=== PATIENT | female | born 2000 | race Caucasian/White ===

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

== ENCOUNTER 2021-01-09 15:23 | Outpatient (REF) | payer MEDICAID, SELFPAY | END 2021-01-09 15:24 | disposition home or self-care (01) | LOC: HO.LAB 15:23 | PROVIDERS: Visit Provider Internal Medicine | DX: Z20.822 Contact with and (suspected) exposure to COVID-19 (principal) | CPT/HCPCS: C9803; U0003; U0005 ==

== ENCOUNTER 2021-03-21 22:31 | Emergency (ER) | payer MEDICAID, SELFPAY ==
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
[2021-03-21 22:39] VITALS: BP 114/67; PULSE 100; RESP 18; TEMP 36.9; O2SAT 99; BMI 30.9
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
[2021-03-22] MEDS: Diphth,Pertus(ACell),Tet Adult 0.5 ML SYRINGE IM (01:37)
[2021-03-22] MEDS: Ibuprofen 600 MG TABLET PO (01:37)
== END 2021-03-22 02:30 | disposition home or self-care (01) ==
PROVIDERS: Emergency Provider Student in an Organized Health Care Education/Training Program
DX: S91.111A Laceration without foreign body of right great toe without damage to nail, initial encounter (principal); V28.0XXA Motorcycle driver injured in noncollision transport accident in nontraffic accident, initial encounter; Y93.9 Activity, unspecified; Y92.9 Unspecified place or not applicable; Y99.9 Unspecified external cause status
CPT/HCPCS: 12001; 73630; 90471; 90715; 99283; 99284

== ENCOUNTER 2021-03-25 16:33 | Emergency (ER) | payer MEDICAID, SELFPAY ==
[2021-03-25 16:49] VITALS: BP 110/55; PULSE 85; RESP 18; TEMP 36.8; O2SAT 100; BMI 30.9
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
--- NOTE | 2021-03-25 18:46 | PC.NURSE ---
POST OP SHOE APPLIED TO L FOOT.
== END 2021-03-25 18:54 | disposition home or self-care (01) ==
PROVIDERS: Emergency Provider Emergency Medicine
DX: S91.102D Unspecified open wound of left great toe without damage to nail, subsequent encounter (principal); W05.1XXD Fall from non-moving nonmotorized scooter, subsequent encounter
CPT/HCPCS: 99282; 99283

== ENCOUNTER 2021-04-28 14:32 | Emergency (ER) | payer MEDICAID, SELFPAY ==
--- NOTE | ~2021-04-28 | XR_ITS ---
EXAMINATION: CERVICAL AND THORACIC SPINE X-RAYS CLINICAL INFORMATION: Pain post fall COMPARISON: None TECHNIQUE: 3 views of the cervical spine and 3 views of the thoracic spine FINDINGS: Thoracic spine: Bone alignment is normal. No fracture or dislocation is seen. Disc spaces are normal. Paraspinal soft tissues are normal. Cervical spine: Bone alignment is normal. No fracture or dislocation is seen. Disc spaces are normal. Prevertebral soft tissues are normal. XR/XR cervical spine 2V IMPRESSION: Unremarkable exam.
--- NOTE | ~2021-04-28 | XR_ITS ---
EXAMINATION: CERVICAL AND THORACIC SPINE X-RAYS CLINICAL INFORMATION: Pain post fall COMPARISON: None TECHNIQUE: 3 views of the cervical spine and 3 views of the thoracic spine FINDINGS: Thoracic spine: Bone alignment is normal. No fracture or dislocation is seen. Disc spaces are normal. Paraspinal soft tissues are normal. Cervical spine: Bone alignment is normal. No fracture or dislocation is seen. Disc spaces are normal. Prevertebral soft tissues are normal. XR/XR thoracic spine 2V IMPRESSION: Unremarkable exam.
[2021-04-28 15:07] VITALS: BP 109/76; PULSE 81; RESP 18; TEMP 36.5; O2SAT 100; BMI 30.9
--- NOTE | 2021-04-28 15:45 | ED.FALL ---
HPI - Fall General Chief Complaint: Fall Stated Complaint: neck and back pain Time Seen by Provider: 04/28/21 15:32 Source: patient Mode of arrival: ambulatory Limitations: no limitations History of Present Illness HPI Narrative: 21-year-old female here with complaints of upper back pain after a fall on April 19. Patient tells me that she fell backwards off onto a bed. She denies hitting her head or loss of consciousness. Since then she has had persistent pain in the upper back despite Motrin and Tylenol. No radiation of pain. No numbness or tingling. Related Data Previous Rx's Medication Instructions Recorded cefuroxime axetil 500 mg PO BID 7 Days #14 tab 09/23/20 ondansetron 4 mg PO Q6-8H PRN #7 tab 09/23/20 cyclobenzaprine 10 mg PO TID PRN #10 tab 04/28/21 Allergies Allergy/AdvReac Type Severity Reaction Status Date / Time grapefruit [GRAPEFRUIT] Allergy Unknown ITCHY MOUTH Verified 03/25/21 18:37 orange [ORANGE] Allergy Unknown ITCHY MOUTH Verified 03/25/21 18:37 nitrofurantoin Allergy Vomiting Verified 03/25/21 18:37 [From Macrobid] Review of Systems Review of Systems: Yes all other systems are reviewed and are negative Constitutional: Constitutional: Reports no additional constitutional complaints, Denies body ache(s), Denies chills, Denies fever(s), Denies headache(s) and Denies weakness Eyes: Eyes: Reports no additional eye complaints and Denies change in vision ENT: Reports system reviewed and no additional complaints, except as documented, Denies dizziness, Denies headache(s), Denies nasal congestion, Denies nasal discharge and Reports neck pain Cardiovascular: Cardiovascular: Reports no additional cardiovascular complaints, Denies chest pain, Denies leg edema and Denies dyspnea Respiratory: Respiratory: Reports no additional respiratory complaints, Denies cough and Denies dyspnea Gastrointestinal: Gastrointestinal: Reports no additional gastrointestinal complaints, Denies abdominal pain, Denies diarrhea, Denies nausea and Denies vomiting Genitourinary: Genitourinary: Reports no additional female genitourinary complaints and Denies urinary incontinence Musculoskeletal: Musculoskeletal: Reports no additional musculoskeletal complaints, Reports back pain, Denies arthralgias, Denies joint swelling, Reports neck pain, Denies numbness and Denies tingling Integumentary/Breasts: Skin/Breast: Reports system reviewed and no additional complaints, except as docu and Denies rash Neurologic: Reports system reviewed and no additional complaints, except as documented, Denies Abnormal speech present, Denies dizziness, Denies headache(s), Denies numbness, Denies tingling and Denies weakness PMFSH Past Medical History Attestation statement: The following information was validated with the patient. Source: old records reviewed Medical History No known health problems Social History Social History Alcohol intake: never Advance Directives: No Advance Directives Information Provided: No Patient : No Physical Exam Vital Signs: Vital Signs: Last Vital Signs Temp 97.7 F 04/28/21 15:07 Pulse 81 04/28/21 15:07 Resp 18 04/28/21 15:07 BP 109/76 04/28/21 15:07 Pulse Ox 100 04/28/21 15:07 Body Mass Index 30.9 Const: General: cooperative, healthy appearing, comfortable and no acute distress Orientation/consciousness: patient oriented x3 Limitations: no limitations HENMT: Head: Yes normal to inspection Ears: hearing grossly normal bilaterally General nose exam: Normal external nose present Face and sinus: Yes normal facial exam Mouth: Normal oral and palatal mucosa present Throat: Yes posterior oropharynx normal Eyes: General: appearance normal, both eyes and all related structures Pupils: Equal, round and reactive pupils present Neck: Other: Lower cervical tenderness and upper thoracic tenderness with no midline tenderness, step-offs deformities FROM Neck: Yes normal visual inspection Chest: Chest palpation & inspection: normal inspection of the chest Resp: Effort & Inspection: normal respiratory effort Auscultation: clear to auscultation bilaterally Cardio: Rate: regular rate Rhythm: regular rhythm Peripheral pulses: Peripheral pulses 2+ throughout GI: Inspection: Yes normal to inspection Palpation (GI): Soft to palpation and nontender Auscultation: normal bowel sounds Back/Spine/Pelvis: Thoracic/Lumbar Spine: thoracic and lumbar spine normal to inspection Skin: General skin exam: no rashes or lesions noted Neuro: General: patient oriented x3, no focal motor deficits and normal sensation to monofilament Cranial nerves: Yes Equal, round and reactive pupils present Cognition (Neuro): normal cognition Speech: No Abnormal speech present Gait exam (Neuro): Normal gait present Motor exam (neuro): 5/5 motor strength present throughout Extrem: General: Yes normal to inspection Course Course Course Narrative: Fall with persistent pain. Will check ur , x-rays 5-x-ray show no acute finding. Likely contusion. Recommend follow-up with primary care due to persistent symptoms of pain. Reviewed worrisome signs symptoms when to return to the emergency department are comfortable discharge home. MDM - Fall Medical Records Attestation: I reviewed the patient's medical records. Lab Data Attestation: I reviewed the patient's lab results. Labs: Lab Results 04/28/21 Range/Units 15:47 Urine Test NEGATIVE (NEGATIVE) Imaging Data thoracic ray: Attestation: I personally reviewed and interpreted this imaging study as follows: Radiologist's impression: EXAMINATION: CERVICAL AND THORACIC SPINE X-RAYS CLINICAL INFORMATION: Pain post fall COMPARISON: None TECHNIQUE: 3 views of the cervical spine and 3 views of the thoracic spine FINDINGS: Thoracic spine: Bone alignment is normal. No fracture or dislocation is seen. Disc spaces are normal. Paraspinal soft tissues are normal. Cervical spine: Bone alignment is normal. No fracture or dislocation is seen. Disc spaces are normal. Prevertebral soft tissues are normal. XR/XR cervical spine 2V IMPRESSION: Unremarkable exam. Discharge Plan Discharge Clinical Impression: Back contusion, Contusion of neck Patient Disposition: Home, Self-Care Instructions: Contusion in Adults (ED) Additional Instructions: Heat to the area Gentle stretching Motrin or Tylenol for pain additionally Prescriptions: New cyclobenzaprine 10 mg tablet 10 mg PO TID PRN (Reason: muscle spasm) Qty: 10 RF: 0 No Action cefuroxime axetil 500 mg tablet 500 mg PO BID 7 Days Qty: 14 RF: 0 ondansetron 4 mg tablet,disintegrating 4 mg PO Q6-8H PRN (Reason: nausea and vomiting) Qty: 7 RF: 0 Referrals: [facility] [Primary Care Provider] - 2 days
[2021-04-28 16:00] LABS: UPreg QC Valid YES; Urine Pregnancy NEGATIVE (NEGATIVE)
== END 2021-04-28 17:44 | disposition home or self-care (01) ==
PROVIDERS: Nurse Practitioner Family; Emergency Provider Emergency Medicine
DX: S10.93XA Contusion of unspecified part of neck, initial encounter (principal); S20.229A Contusion of unspecified back wall of thorax, initial encounter; W06.XXXA Fall from bed, initial encounter; Y93.89 Activity, other specified; Y92.013 Bedroom of single-family (private) house as the place of occurrence of the external cause; Y99.9 Unspecified external cause status
CPT/HCPCS: 72040; 72070; 81025; 99282; 99283

== ENCOUNTER 2021-06-20 15:08 | Outpatient (REF) | payer MEDICAID, SELFPAY | END 2021-06-20 15:09 | disposition home or self-care (01) | LOC: HO.LAB 15:08 | PROVIDERS: Visit Provider Internal Medicine | DX: Z20.822 Contact with and (suspected) exposure to COVID-19 (principal) | CPT/HCPCS: C9803; U0003; U0005 ==

== ENCOUNTER 2021-08-31 16:33 | Emergency (ER) | payer MEDICAID, SELFPAY ==
--- NOTE | ~2021-08-31 | CT_ITS ---
EXAMINATION: CT ABDOMEN AND PELVIS WITHOUT CONTRAST CLINICAL INFORMATION: Left flank pain. COMPARISON: CT abdomen and pelvis dated from 12/23/2015. TECHNIQUE: Multidetector volumetric imaging was performed from the superior aspect of the liver through the pubic symphysis. Sagittal and coronal reformatted images were obtained on the technologist's workstation. This CT examination was performed using dose optimization techniques as appropriate, variously including the following: *Automated exposure control *Adjustment of mA and/or kV according to patient size (this includes techniques or standardized protocols for targeted exams where dose is matched to indication/reason for exam; i.e. extremities or head) *Use of iterative reconstruction technique DLP: 642 mGy-cm FINDINGS: LUNG BASES: The visualized lung bases are unremarkable. LIVER, GALLBLADDER, AND BILIARY TREE: The noncontrast liver is normal in size, shape, and attenuation. No focal hepatic lesion or biliary ductal dilatation is present. The gallbladder is unremarkable with no evidence of radiopaque gallstones, gallbladder wall thickening, or obvious pericholecystic inflammatory changes. PANCREAS: Unremarkable. SPLEEN: Unremarkable. ADRENAL GLANDS: Unremarkable. KIDNEYS AND URETERS: The kidneys are normal in size, shape, and attenuation. No hydronephrosis, hydroureter, or calculi seen. No perinephric stranding. BLADDER: Unremarkable. GASTROINTESTINAL TRACT: The small and large bowel are unremarkable. The appendix is unremarkable. ABDOMINAL WALL: No significant hernia is appreciated. LYMPH NODES: Evaluation is somewhat limited due to the absence of intravenous contrast and decreased intra-abdominal fat. Accounting for these limitations, there is redemonstration of prominent mesenteric lymph nodes of uncertain clinical significance and overall stable since 2016. VASCULAR: Unremarkable. PELVIC VISCERA: There is a vaginal tampon. There is a normal CT appearance of the uterus and adnexa. OSSEOUS STRUCTURES: No acute or suspicious osseous abnormalities. CT/CT abdomen pelvis wo IV con IMPRESSION: No acute abnormalities to explain the patient's symptoms.
[2021-08-31 19:29] VITALS: BP 118/75; PULSE 87; RESP 18; TEMP 36.9; O2SAT 97; BMI 32.5
[2021-08-31 19:55] LABS: Appearance Urine CLEAR; Color Urine YELLOW; Glucose Urine UA NEG (NEG); Leukocyte Esterase Urine NEG (NEG); Nitrite Urine NEG (NEG); UACC Culture Trigger NO; Urine Blood 2+ (NEG); Urine Ketones NEG (NEG); Urine Protein NEG (NEG-TRACE)
[2021-08-31 19:59] LABS: UPreg QC Valid YES; Urine Pregnancy NEGATIVE (NEGATIVE)
[2021-08-31 20:11] LABS: Bacteria Urine TRACE /LPF; Squamous Epithelial Cell Urine 2+ /LPF
[2021-08-31 20:13] LABS: Uric Acid Crystals Urine TRACE /LPF
[2021-08-31] MEDS: Ibuprofen 400 MG TABLET PO (21:47)
[2021-08-31] MEDS: Acetaminophen 325 MG TABLET 975 MG PO (21:48)
[2021-08-31 21:49] VITALS: BP 127/71; PULSE 90; RESP 16; O2SAT 97
--- NOTE | 2021-08-31 21:54 | ED.GENADULT ---
HPI - General Adult General Chief complaint: General Medical Stated complaint: back pain Time Seen by Provider: 08/31/21 21:19 Source: patient Mode of arrival: ambulatory History of Present Illness HPI narrative: 21-year-old female without significant past medical history other than renal colic presents with left flank pain primarily since Wednesday without associated fever, chills, vomiting, but states an episode of diarrhea this morning and mild nausea with decreased appetite for the past 3 days. Patient states that the pain as sharp and has progressively worsened over the past couple of days and now radiates into the anterior abdomen. Otherwise, she denies any urinary pain/burning/frequency. Related Data Previous Rx's Medication Instructions Recorded cefuroxime axetil 500 mg tablet 500 mg PO BID 7 Days #14 tab 09/23/20 ondansetron 4 mg disintegrating 4 mg PO Q6-8H PRN #7 tab 09/23/20 tablet cyclobenzaprine 10 mg tablet 10 mg PO TID PRN #10 tab 04/28/21 Allergies Allergy/AdvReac Type Severity Reaction Status Date / Time grapefruit [GRAPEFRUIT] Allergy Unknown ITCHY MOUTH Verified 08/31/21 19:29 orange [ORANGE] Allergy Unknown ITCHY MOUTH Verified 08/31/21 19:29 nitrofurantoin Allergy Vomiting Verified 08/31/21 19:29 [From Macrobid] Review of Systems Review of Systems: Pertinent positives and negatives as stated in HPI 10 point review of systems is otherwise negative. PMFSH Past Medical History Source: nursing notes reviewed Medical History No known health problems Social History Social History Alcohol intake: never Advance Directives: No Advance Directives Information Provided: No Patient : No Physical Exam Vital Signs: Vital Signs: Last Vital Signs Temp 98.5 F 08/31/21 19:29 Pulse 90 08/31/21 21:49 Resp 16 08/31/21 21:49 BP 127/71 08/31/21 21:49 Pulse Ox 97 08/31/21 21:49 Body Mass Index 32.5 VITAL SIGNS: Reviewed. GENERAL: Well developed, well nourished, in no acute distress. HEAD: Normocephalic/atraumatic EYES: PERRLA, EOMI OROPHARYNX: no oral lesions noted, posterior pharynx clear LUNGS: Normal breath sounds. No adventitious sounds or accessory muscle use. SpO2<97> CARDIOVASCULAR: Regular rate and rhythm without noted murmurs ABDOMEN: Soft, mild tenderness over suprapubic without rebound, non-distended with bowel sounds, left-sided CVA tenderness. NEUROLOGIC: Alert and oriented x 4. Course Course Course Narrative: 21-year-old female with history and clinical presentation suggestive of possible renal colic, pyelonephritis although the latter is less likely given negative UA and patient is currently on her menstrual cycle. Review of all investigations negative for acute findings to suggest pyelonephritis, UTI, renal colic. Urine is negative therefore ruling out ectopic. Results and findings were discussed with the patient at bedside and after receiving combination analgesics patient states that her pain has improved and she was encouraged to follow-up with her primary care provider. Medical Decision Making Lab Data Labs: Lab Results 08/31/21 08/31/21 Range/Units 19:43 19:43 Urine Color YELLOW Urine Appearance CLEAR Urine pH 7.0 (5.0-8.0) Ur Specific [place] 1.010 (1.005-1.025) Urine Protein NEG (NEG-TRACE) MG/DL Urine Glucose (UA) NEG (NEG) MG/DL Urine Ketones NEG (NEG) MG/DL Urine Blood 2+ H (NEG) Urine Nitrite NEG (NEG) Ur Leukocyte Esterase NEG (NEG) Urine RBC 1-4 (0) /HPF Urine WBC 1-4 (0-4) /HPF Ur Squamous Epith Cells 2+ /LPF Uric Acid Crystals TRACE /LPF Urine Bacteria TRACE /LPF Urine Test NEGATIVE (NEGATIVE) Discharge Plan Discharge Clinical Impression: Flank pain, Musculoskeletal pain Patient Disposition: Home, Self-Care Instructions: Flank Pain (ED), Musculoskeletal Pain (ED) Additional Instructions: 1. Tylenol 1000 mg, orally, every 6 hours as needed for pain control. Do not exceed 4000 mg within 24 hours. 2. Ibuprofen 400 mg, orally with milk or food, every 6 hours as needed for pain control. You may take this medication with the Tylenol for improved symptom relief. 3. Lidocaine patch, these are available [id number] and can be apply to area of maximal tenderness as directed on the outside packaging. 4. Follow-up with your primary care provider tomorrow morning for re-evaluation and further outpatient management Return to the ER for acute worsening of symptoms. Prescriptions: No Action cyclobenzaprine 10 mg tablet 10 mg PO TID PRN (Reason: muscle spasm) Qty: 10 RF: 0 cefuroxime axetil 500 mg tablet 500 mg PO BID 7 Days Qty: 14 RF: 0 ondansetron 4 mg tablet,disintegrating 4 mg PO Q6-8H PRN (Reason: nausea and vomiting) Qty: 7 RF: 0
== END 2021-08-31 23:19 | disposition home or self-care (01) ==
PROVIDERS: Emergency Provider Student in an Organized Health Care Education/Training Program
DX: R10.9 Unspecified abdominal pain (principal); M79.18 Myalgia, other site
CPT/HCPCS: 74176; 81001; 81025; 99284

== ENCOUNTER 2022-02-27 13:32 | Emergency (ER) | payer MEDICAID, SELFPAY ==
--- NOTE | ~2022-02-27 | CT_ITS ---
EXAMINATION: CT ABDOMEN AND PELVIS WITHOUT CONTRAST CLINICAL INFORMATION: Right-sided abdominal and flank pain COMPARISON: 08/31/2021 TECHNIQUE: Multidetector volumetric imaging was performed from the superior aspect of the liver through the pubic symphysis. Sagittal and coronal reformatted images were obtained on the technologist's workstation. This CT examination was performed using dose optimization techniques as appropriate, variously including the following: *Automated exposure control *Adjustment of mA and/or kV according to patient size (this includes techniques or standardized protocols for targeted exams where dose is matched to indication/reason for exam; i.e. extremities or head) *Use of iterative reconstruction technique DLP: 680 mGy-cm FINDINGS: LUNG BASES: The visualized lung bases are unremarkable. LIVER, GALLBLADDER, AND BILIARY TREE: The liver is normal in size, shape, and attenuation. No focal hepatic lesion or biliary ductal dilatation is present. The gallbladder is unremarkable with no evidence of radiopaque gallstones, gallbladder wall thickening, or obvious pericholecystic inflammatory changes. PANCREAS: Unremarkable. SPLEEN: Unremarkable. ADRENAL GLANDS: Unremarkable. KIDNEYS AND URETERS: The kidneys are normal in size, shape, and attenuation. No hydronephrosis, hydroureter, or calculi seen. No perinephric stranding. BLADDER: Unremarkable. GASTROINTESTINAL TRACT: No evidence of bowel obstruction or significant wall thickening. The appendix appears nondilated without significant surrounding inflammatory change. No free fluid or free air is seen. ABDOMINAL WALL: No significant hernia is appreciated. LYMPH NODES: Scattered mesenteric and retroperitoneal subcentimeter lymph nodes are present, without significant enlargement by size criteria. VASCULAR: Unremarkable. PELVIC VISCERA: Unremarkable. OSSEOUS STRUCTURES: Unremarkable. CT/CT abdomen pelvis wo IV con IMPRESSION: No acute findings identified in the abdomen/pelvis.
[2022-02-27 14:54] VITALS: BP 114/71; PULSE 73; RESP 16; TEMP 35.6; O2SAT 100; BMI 34.0
[2022-02-27 22:14] LABS: MANUAL DIFF FLAG NO
[2022-02-27 22:15] LABS: Basophils Absolute Auto 0.1 X10*3/uL (0.0-0.2); Basophils Percent Auto 0.5 % (0-2); Eosinophils Absolute Auto 0.2 X10*3/uL (0.0-0.4); Eosinophils Percent Auto 1.5 % (0-4); Hematocrit 36.9 % (37.0-47.0); Hemoglobin 12.4 g/dl (12.0-16.0); Imm Gran Abs Auto 0.04 X10*3/uL (0.00-0.03); Imm Gran Pct Auto 0.4 % (0.0-0.4); Lymphocytes Absolute Auto 3.1 X10*3/uL (1.2-4.9); Lymphocytes Percent Auto 26.9 % (20-40); Mean Corpuscular HGB Conc 33.6 g/dl (31.0-35.0); Mean Corpuscular Hemoglobin 27.2 pg (27.0-33.0); Mean Corpuscular Volume 80.9 fL (80.0-98.0); Mean Platelet Volume 9.3 fL (9.4-12.3); Monocytes Absolute Auto 0.4 X10*3/uL (0.1-1.2); Monocytes Percent Auto 3.8 % (2-11); Neutrophils Absolute Auto 7.6 x10*3/uL (2.0-8.3); Neutrophils Percent Auto 66.9 % (45-73); Platelet Count 319 X10*3/uL (160-400); Red Blood Count 4.56 X10*6/uL (4.20-5.50); Red Cell Distribution Width 12.7 % (11.0-16.0); White Blood Count 11.4 X10*3/uL (4.8-10.8)
[2022-02-27 22:29] LABS: Appearance Urine CLEAR; Color Urine YELLOW; Glucose Urine UA NEG (NEG); Leukocyte Esterase Urine NEG (NEG); Nitrite Urine NEG (NEG); Specific Gravity - Urine 1.015 (1.005-1.025); Urine Blood NEG (NEG); Urine Ketones NEG (NEG); Urine Protein NEG (NEG-TRACE)
[2022-02-27 22:31] LABS: Alanine Aminotransferase 13 U/L (0-31); Albumin Level 4.4 g/dL (3.5-5.0); Alkaline Phosphatase 72 U/L (39-117); Aspartate Amino Transferase 13 U/L (5-31); Bilirubin Direct 0.2 mg/dL (0.0-0.5); Bilirubin Total 0.5 mg/dL (0.0-1.0); Lipase 45 U/L (8-78); Total Protein 7.6 g/dL (6.5-8.0)
[2022-02-27 22:33] LABS: Alanine Aminotransferase 13 U/L (0-31); Albumin Level 4.4 g/dL (3.5-5.0); Alkaline Phosphatase 73 U/L (39-117); Anion Gap 13 (12-20); Aspartate Amino Transferase 14 U/L (5-31); Bilirubin Total 0.5 mg/dL (0.0-1.0); Blood Urea Nitrogen 7 mg/dL (9-16); Calcium 9.8 mg/dL (8.4-10.2); Carbon Dioxide 28 mmol/L (22-29); Chloride 102 mmol/L (96-108); Creatinine Clr Calc Pharmacy 127.8; Estimated Glomerular Filt Rate > 60; Glucose Random 94 mg/dL (60-115); Sodium 139 mmol/L (135-145); Total Protein 7.7 g/dL (6.5-8.0)
--- NOTE | 2022-02-28 01:12 | ED.ABDPAIN ---
HPI - Abdominal Pain General Chief Complaint: Abdominal Pain Stated Complaint: upper R side abd pain Time Seen by Provider: 02/28/22 00:52 Source: patient and family (Mother, Jayne) Mode of arrival: ambulatory Limitations: no limitations History of Present Illness HPI narrative: 21-year-old female who presents emergency department for evaluation of right-sided abdominal pain. She states that the pain began 3 days prior. She states that 3 days prior she slept until noon and when she woke up she was experiencing pain in her right upper abdominal area. She states that since that time the pain is been constant but waxes and wanes in intensity. She states that there is a constant pressure-like pain which is 6/10 and then she has brief episodes of sharp pain which is 10/10. She states the pain seems to be worse with breathing and with movement. The pain does not change with eating. She states who her LMP was 02/17/2022 and she blood until 02/24/2022. She denied fever. She did have occasional chills. She denied rhinorrhea, sore throat, cough. She denied dyspnea on exertion. She has had nausea with no vomiting. She states she was constipated and had no bowel movement for 4 days but did have a bowel movement today. She did note frequency but no dysuria. MD elicited complaint: abdominal pain Pertinent past history: constipation and past UTI Onset (ago): day(s) (3) Pain Consistency: constant Location: RUQ and RLQ Severity: moderate Pain scale (0-10): 6 Quality: stabbing and other (Pressure-like pain) Radiation: none Migration to: no migration Exacerbating factors: movement and other (Breathing) Relieving factors: nothing Associated symptoms: nausea and dysuria Related Data Date of Last Menstrual Period: 02/17/22 Patient : No Previous Rx's Medication Instructions Recorded cefuroxime axetil 500 mg tablet 500 mg PO BID 7 Days #14 tab 09/23/20 ondansetron 4 mg disintegrating 4 mg PO Q6-8H PRN #7 tab 09/23/20 tablet cyclobenzaprine 10 mg tablet 10 mg PO TID PRN #10 tab 04/28/21 Allergies Allergy/AdvReac Type Severity Reaction Status Date / Time grapefruit [GRAPEFRUIT] Allergy Unknown ITCHY MOUTH Verified 08/31/21 19:29 orange [ORANGE] Allergy Unknown ITCHY MOUTH Verified 08/31/21 19:29 nitrofurantoin Allergy Vomiting Verified 08/31/21 19:29 [From Macrobid] Review of Systems Review of Systems Yes all other systems are reviewed and are negative [facility] Past Medical History [facility] Narrative: Past medical history: Depression, anxiety, sickle cell trait. Past surgical history tonsillectomy. Social history: She denies tobacco use, she occasionally drinks alcohol, she denies drug use. Medical History No known health problems Date of Last Menstrual Period: 02/17/22 Social History Social History Alcohol intake: never Advance Directives: No Advance Directives Information Provided: No Patient : No Physical Exam ED Vital Signs: Vital Signs - 24 hr 02/27/22 14:54 02/28/22 01:23 Temperature 96.0 F L 98.2 F Pulse Rate 73 84 Respiratory Rate 16 16 Blood Pressure 114/71 116/78 Pulse Oximetry 100 99 BMI result Body Mass Index 34.0 Const General: cooperative and no acute distress Orientation/consciousness: oriented to person and oriented to place Limitations: no limitations HENMT Head: Yes normal to inspection, Yes normocephalic and Yes atraumatic Ears: external ears normal General nose exam: Normal external nose present Face and sinus: Yes normal facial exam Mouth: Normal oral and palatal mucosa present Throat: Yes posterior oropharynx normal Eyes General: appearance normal, both eyes and all related structures Pupils: Equal, round and reactive pupils present Neck Neck: Yes normal visual inspection, Yes no lymphadenopathy, Yes trachea midline and Yes supple Chest Chest palpation & inspection: normal inspection of the chest and normal palpation of entire chest wall Resp Effort & Inspection: normal respiratory effort and able to speak in complete sentences Auscultation: clear to auscultation bilaterally Cardio Rate: regular rate Rhythm: regular rhythm Heart sounds: S1 normal heart sound present, S2 normal heart sound present and no murmurs GI Inspection: Yes normal to inspection Palpation (GI): Soft to palpation, Tenderness to palpation present (GI) (Mild, diffuse tenderness) in the RLQ (Moderate) and in the RUQ (Moderate) and no guarding Auscultation: normal bowel sounds General: Yes CVA tenderness (Moderate) on the right Back/Spine/Pelvis Back: CVA tenderness (Moderate) Skin General skin exam: no rashes or lesions noted Neuro General: oriented to person and oriented to place Cranial nerves: Yes CN's II-XII intact bilaterally and Yes Equal, round and reactive pupils present Cognition (Neuro): normal cognition Motor exam (neuro): 5/5 motor strength present throughout Extrem General: Yes normal to inspection Psych Appearance: grossly normal Speech and movement: Normal speech and movement present Affect: normal affect Attitude: cooperative Thought process: Normal thought process present Thought content: Normal thought content present Course Course Course Narrative: 21-year-old female who presents emergency department for evaluation right-sided abdominal pain x3 days. The pain is a constant pressure-like pain with intermittent sharp pain. Pain is worse with movement and breathing but is not changed by eating. Patient had no bowel movement for 4 days, she had a bowel movement today but this did not relieve her pain. Vital signs were unremarkable. Patient's vital signs were normal except for a low temperature of 96 degrees F . The patient's abdominal exam did reveal moderate right upper and right lower quadrant tenderness with moderate CVA tenderness and diffuse mild tenderness. Differential includes was not limited to ectopic , appendicitis, biliary disease, renal stone, pyelonephritis, UTI. Laboratory evaluation was ordered. Patient was ordered to get Toradol 15 mg IV and Zofran 4 mg IV. 0122: Laboratory evaluation: CBC was normal, CMP was normal. Lipase was normal. Quantitative beta-hCG is pending. 0251: The patient's quantitative beta hCG was negative. Patient is feeling better from the above treatment. CT scan of the abdomen pelvis without IV contrast is pending. At the end of my shift, patient's care was turned over to my colleague, Dr. Belkis manzanares. MDM - Abdominal Pain Lab Data Result diagrams: 02/27/22 22:07 02/27/22 22:07 Labs: Lab Results 02/27/22 02/27/22 02/27/22 Range/Units 22:07 22:07 22:07 WBC 11.4 H (4.8-10.8) X10*3/uL RBC 4.56 (4.20-5.50) X10*6/uL Hgb 12.4 (12.0-16.0) g/dl Hct 36.9 L (37.0-47.0) % MCV 80.9 (80.0-98.0) fL MCH 27.2 (27.0-33.0) pg MCHC 33.6 (31.0-35.0) g/dl RDW 12.7 (11.0-16.0) % Plt Count 319 (160-400) X10*3/uL MPV 9.3 L (9.4-12.3) fL Immature Gran % (Auto) 0.4 (0.0-0.4) % Neut % (Auto) 66.9 (45-73) % Lymph % (Auto) 26.9 (20-40) % [place] % (Auto) 3.8 (2-11) % Eos % (Auto) 1.5 (0-4) % Baso % (Auto) 0.5 (0-2) % Lymph # (Auto) 3.1 (1.2-4.9) X10*3/uL [place] # (Auto) 0.4 (0.1-1.2) X10*3/uL Eos # (Auto) 0.2 (0.0-0.4) X10*3/uL Baso # (Auto) 0.1 (0.0-0.2) X10*3/uL Abs Immat Gran (auto) 0.04 H (0.00-0.03) X10*3/uL Absolute Neuts (auto) 7.6 (2.0-8.3) x10*3/uL Absolute Nucleated RBC 0.000 (0.0-0.012) X10*3/uL Nucleated RBC % (auto) 0.0 (0.0-0.2) /100WBC Sodium 139 (135-145) mmol/L Potassium 4.0 (3.3-5.1) mmol/L Chloride 102 (96-108) mmol/L Carbon Dioxide 28 (22-29) mmol/L Anion Gap 13 (12-20) BUN 7 L (9-16) mg/dL Creatinine 0.68 (0.5-1.4) mg/dL Estim Creat Clear Calc 127.8 Estimated GFR > 60 Random Glucose 94 (60-115) mg/dL Calcium 9.8 (8.4-10.2) mg/dL Total Bilirubin 0.5 0.5 (0.0-1.0) mg/dL Direct Bilirubin 0.2 (0.0-0.5) mg/dL AST 14 13 (5-31) U/L ALT 13 13 (0-31) U/L Alkaline Phosphatase 73 72 (39-117) U/L Total Protein 7.7 7.6 (6.5-8.0) g/dL Albumin 4.4 4.4 (3.5-5.0) g/dL Lipase 45 (8-78) U/L Beta HCG, Quant < 2 mIU/mL Urine Color Urine Appearance Urine pH (5.0-8.0) Ur Specific [place] (1.005-1.025) Urine Protein (NEG-TRACE) MG/DL Urine Glucose (UA) (NEG) MG/DL Urine Ketones (NEG) MG/DL Urine Blood (NEG) Urine Nitrite (NEG) Ur Leukocyte Esterase (NEG) 02/27/22 Range/Units 22:20 WBC (4.8-10.8) X10*3/uL RBC (4.20-5.50) X10*6/uL Hgb (12.0-16.0) g/dl Hct (37.0-47.0) % MCV (80.0-98.0) fL MCH (27.0-33.0) pg MCHC (31.0-35.0) g/dl RDW (11.0-16.0) % Plt Count (160-400) X10*3/uL MPV (9.4-12.3) fL Immature Gran % (Auto) (0.0-0.4) % Neut % (Auto) (45-73) % Lymph % (Auto) (20-40) % [place] % (Auto) (2-11) % Eos % (Auto) (0-4) % Baso % (Auto) (0-2) % Lymph # (Auto) (1.2-4.9) X10*3/uL [place] # (Auto) (0.1-1.2) X10*3/uL Eos # (Auto) (0.0-0.4) X10*3/uL Baso # (Auto) (0.0-0.2) X10*3/uL Abs Immat Gran (auto) (0.00-0.03) X10*3/uL Absolute Neuts (auto) (2.0-8.3) x10*3/uL Absolute Nucleated RBC (0.0-0.012) X10*3/uL Nucleated RBC % (auto) (0.0-0.2) /100WBC Sodium (135-145) mmol/L Potassium (3.3-5.1) mmol/L Chloride (96-108) mmol/L Carbon Dioxide (22-29) mmol/L Anion Gap (12-20) BUN (9-16) mg/dL Creatinine (0.5-1.4) mg/dL Estim Creat Clear Calc Estimated GFR Random Glucose (60-115) mg/dL Calcium (8.4-10.2) mg/dL Total Bilirubin (0.0-1.0) mg/dL Direct Bilirubin (0.0-0.5) mg/dL AST (5-31) U/L ALT (0-31) U/L Alkaline Phosphatase (39-117) U/L Total Protein (6.5-8.0) g/dL Albumin (3.5-5.0) g/dL Lipase (8-78) U/L Beta HCG, Quant mIU/mL Urine Color YELLOW Urine Appearance CLEAR Urine pH 7.0 (5.0-8.0) Ur Specific [place] 1.015 (1.005-1.025) Urine Protein NEG (NEG-TRACE) MG/DL Urine Glucose (UA) NEG (NEG) MG/DL Urine Ketones NEG (NEG) MG/DL Urine Blood NEG (NEG) Urine Nitrite NEG (NEG) Ur Leukocyte Esterase NEG (NEG) Discharge Plan Discharge Clinical Impression: Abdominal pain Patient Disposition: Still a Patient Prescriptions: No Action cyclobenzaprine 10 mg tablet 10 mg PO TID PRN (Reason: muscle spasm) Qty: 10 0RF cefuroxime axetil 500 mg tablet 500 mg PO BID 7 Days Qty: 14 0RF ondansetron 4 mg tablet,disintegrating 4 mg PO Q6-8H PRN (Reason: nausea and vomiting) Qty: 7 0RF
[2022-02-28 01:23] VITALS: BP 116/78; PULSE 84; RESP 16; TEMP 36.8; O2SAT 99
[2022-02-28 01:23] LABS: HCG Quantitative < 2 mIU/mL
[2022-02-28] MEDS: ondansetron HCL 4 MG/2 ML VIAL IVPUSH (02:00)
[2022-02-28] MEDS: 0.9 % Sodium Chloride 1,000 ML 999 ML IV (02:00)
[2022-02-28] MEDS: Ketorolac Tromethamine 15 MG/ML VIAL IVPUSH (02:00)
== END 2022-02-28 03:53 | disposition home or self-care (01) ==
PROVIDERS: Emergency Provider Emergency Medicine Emergency Medical Services; PCP Nurse Practitioner
DX: K59.00 Constipation, unspecified (principal); R10.11 Right upper quadrant pain; R10.31 Right lower quadrant pain; Z79.899 Other long term (current) drug therapy
CPT/HCPCS: 36415; 74176; 80053; 80076; 81003; 82248; 83690; 84702; 85025; 96374; 96375; 99284; J1885; J2405

== ENCOUNTER 2022-05-17 19:09 | Emergency (ER) | payer MEDICAID, SELFPAY ==
[2022-05-17 20:25] VITALS: BP 139/67; PULSE 82; RESP 16; TEMP 36.9; O2SAT 99; BMI 25.4
[2022-05-17 20:35] LABS: MANUAL DIFF FLAG NO
[2022-05-17 20:36] LABS: Basophils Absolute Auto 0.1 X10*3/uL (0.0-0.2); Basophils Percent Auto 0.6 % (0-2); Eosinophils Absolute Auto 0.2 X10*3/uL (0.0-0.4); Hematocrit 35.6 % (37.0-47.0); Hemoglobin 11.8 g/dl (12.0-16.0); Imm Gran Abs Auto 0.03 X10*3/uL (0.00-0.03); Imm Gran Pct Auto 0.3 % (0.0-0.4); Lymphocytes Absolute Auto 2.7 X10*3/uL (1.2-4.9); Lymphocytes Percent Auto 25.3 % (20-40); Mean Corpuscular HGB Conc 33.1 g/dl (31.0-35.0); Mean Corpuscular Hemoglobin 26.6 pg (27.0-33.0); Mean Corpuscular Volume 80.4 fL (80.0-98.0); Mean Platelet Volume 9.2 fL (9.4-12.3); Monocytes Absolute Auto 0.5 X10*3/uL (0.1-1.2); Monocytes Percent Auto 4.3 % (2-11); Neutrophils Absolute Auto 7.1 x10*3/uL (2.0-8.3); Neutrophils Percent Auto 67.5 % (45-73); Platelet Count 280 X10*3/uL (160-400); Red Blood Count 4.43 X10*6/uL (4.20-5.50); Red Cell Distribution Width 12.3 % (11.0-16.0); White Blood Count 10.5 X10*3/uL (4.8-10.8)
[2022-05-17 20:38] LABS: Appearance Urine CLEAR; Color Urine YELLOW; Glucose Urine UA NEG (NEG); Leukocyte Esterase Urine NEG (NEG); Nitrite Urine NEG (NEG); PH 5.5 (5.0-8.0); Urine Blood NEG (NEG); Urine Ketones NEG (NEG); Urine Protein NEG (NEG-TRACE)
[2022-05-17 20:41] LABS: UPreg QC Valid YES; Urine Pregnancy NEGATIVE (NEGATIVE)
[2022-05-17 21:12] LABS: Alanine Aminotransferase 8 U/L (0-31); Albumin Level 4.4 g/dL (3.5-5.0); Alkaline Phosphatase 63 U/L (39-117); Anion Gap 14 (12-20); Aspartate Amino Transferase 12 U/L (5-31); Bilirubin Total 0.3 mg/dL (0.0-1.0); Blood Urea Nitrogen 9 mg/dL (9-16); Calcium 9.4 mg/dL (8.4-10.2); Carbon Dioxide 28 mmol/L (22-29); Chloride 103 mmol/L (96-108); Creatinine Clr Calc Pharmacy 106.7; Estimated Glomerular Filt Rate > 60; Glucose Random 98 mg/dL (60-115); Potassium 4.6 mmol/L (3.3-5.1); Sodium 140 mmol/L (135-145); Total Protein 7.3 g/dL (6.5-8.0)
--- NOTE | 2022-05-17 23:37 | ED_ITS ---
HPI - General Adult General Chief complaint: General Medical Stated complaint: uti, vaginal discomfort Time Seen by Provider: 05/17/22 21:47 Source: patient Mode of arrival: ambulatory Limitations: no limitations History of Present Illness HPI narrative: 22-year-old female presents to ED for dysuria, increased urinary frequency, and vaginal discomfort for the past 3 days. Patient states she is sexually active but has not had any unprotected sex recently. Patient states she just finished her menstruation this past . Patient denies any flank pain, nausea, vomiting, vaginal lesions, or vaginal bleeding. Related Data Previous Rx's Medication Instructions Recorded cefuroxime axetil 500 mg tablet 500 mg PO BID 7 days #14 tabs 09/23/20 ondansetron 4 mg disintegrating 4 mg PO Q6-8H PRN nausea and 09/23/20 tablet vomiting #7 tabs cyclobenzaprine 10 mg tablet 10 mg PO TID PRN muscle spasm #10 04/28/21 tabs doxycycline hyclate 100 mg capsule 100 mg PO BID 7 days #14 caps 05/18/22 metronidazole 500 mg tablet 500 mg PO BID 7 days #14 tabs 05/18/22 Allergies Allergy/AdvReac Type Severity Reaction Status Date / Time grapefruit [GRAPEFRUIT] Allergy Unknown ITCHY MOUTH Verified 08/31/21 19:29 orange [ORANGE] Allergy Unknown ITCHY MOUTH Verified 08/31/21 19:29 nitrofurantoin Allergy Vomiting Verified 08/31/21 19:29 [From Macrobid] Review of Systems Review of Systems: Dysuria Yes all other systems are reviewed and are negative PMFSH Past Medical History Medical History No known health problems Social History Social History Alcohol intake: never Advance Directives: No Advance Directives Information Provided: No Physical Exam ED Vital Signs: Vital Signs - 24 hr 05/17/22 20:25 Temperature 98.5 F Pulse Rate 82 Respiratory Rate 16 Blood Pressure 139/67 Pulse Oximetry 99 Oxygen Delivery Method Room Air BMI result Body Mass Index 25.4 Const General: cooperative, healthy appearing, comfortable, no acute distress, well developed, alert and awake Orientation/consciousness: patient oriented x3 HENMT Head: Yes normal to inspection, Yes No palpable skull fracture present, Yes normocephalic, Yes atraumatic and No abrasion Eyes General: appearance normal, both eyes and all related structures Neck Neck: Yes normal visual inspection, Yes full ROM, Yes no lymphadenopathy, Yes no meningeal signs, Yes trachea midline, Yes supple, No anterior neck swelling and No tender Chest Chest palpation & inspection: normal inspection of the chest and normal palpation of entire chest wall Resp Effort & Inspection: normal respiratory effort and able to speak in complete sentences Auscultation: clear to auscultation bilaterally Cardio Jugular venous distension: no JVD Heart sounds: S1 normal heart sound present and S2 normal heart sound present GI Inspection: Yes normal to inspection and No abdominal wall ecchymosis Palpation (GI): Soft to palpation, not firm, nontender, no guarding and not rigid Other: negative CMT General: No CVA tenderness and Yes no CVA tenderness External Female Exam: normal external appearance Speculum Exam - Vagina: normal appearance of the vagina and abnormal vaginal discharge white and frothy Speculum Exam - Cervix: Abnormal cervical discharge present white Back/Spine/Pelvis Back: no CVA tenderness, No CVA tenderness and No back tenderness Skin General skin exam: no rashes or lesions noted and elasticity normal Neuro General: patient oriented x3, gait normal, tone normal and no meningeal signs Cranial nerves: Yes CN's II-XII intact bilaterally Psych Appearance: grossly normal, well kempt and not disheveled Course Course Course Narrative: Labs UA negative. UA negative for UTI. Patient not Reevaluation(s) Reevaluation #1: Pelvic exam show white frothy discharge. Will treat empirically for STI also give 1 dose of Diflucan and discharged with BV and doxycycline. Time: 20:46 Medical Decision Making [facility] Narrative Medical decision making narrative: Dysuria. Vaginitis Lab Data Result diagrams: 05/17/22 20:25 05/17/22 20:25 Labs: Lab Results 05/17/22 05/17/22 05/17/22 Range/Units 20:25 20:25 20:25 WBC 10.5 (4.8-10.8) X10*3/uL RBC 4.43 (4.20-5.50) X10*6/uL Hgb 11.8 L (12.0-16.0) g/dl Hct 35.6 L (37.0-47.0) % MCV 80.4 (80.0-98.0) fL MCH 26.6 L (27.0-33.0) pg MCHC 33.1 (31.0-35.0) g/dl RDW 12.3 (11.0-16.0) % Plt Count 280 (160-400) X10*3/uL MPV 9.2 L (9.4-12.3) fL Immature Gran % (Auto) 0.3 (0.0-0.4) % Neut % (Auto) 67.5 (45-73) % Lymph % (Auto) 25.3 (20-40) % [place] % (Auto) 4.3 (2-11) % Eos % (Auto) 2.0 (0-4) % Baso % (Auto) 0.6 (0-2) % Lymph # (Auto) 2.7 (1.2-4.9) X10*3/uL [place] # (Auto) 0.5 (0.1-1.2) X10*3/uL Eos # (Auto) 0.2 (0.0-0.4) X10*3/uL Baso # (Auto) 0.1 (0.0-0.2) X10*3/uL Abs Immat Gran (auto) 0.03 (0.00-0.03) X10*3/uL Absolute Neuts (auto) 7.1 (2.0-8.3) x10*3/uL Absolute Nucleated RBC 0.000 (0.0-0.012) X10*3/uL Nucleated RBC % (auto) 0.0 (0.0-0.2) /100WBC Sodium (135-145) mmol/L Potassium (3.3-5.1) mmol/L Chloride (96-108) mmol/L Carbon Dioxide (22-29) mmol/L Anion Gap (12-20) BUN (9-16) mg/dL Creatinine (0.5-1.4) mg/dL Estim Creat Clear Calc Estimated GFR Random Glucose (60-115) mg/dL Calcium (8.4-10.2) mg/dL Total Bilirubin (0.0-1.0) mg/dL AST (5-31) U/L ALT (0-31) U/L Alkaline Phosphatase (39-117) U/L Total Protein (6.5-8.0) g/dL Albumin (3.5-5.0) g/dL Urine Color YELLOW Urine Appearance CLEAR Urine pH 5.5 (5.0-8.0) Ur Specific [place] 1.020 (1.005-1.025) Urine Protein NEG (NEG-TRACE) MG/DL Urine Glucose (UA) NEG (NEG) MG/DL Urine Ketones NEG (NEG) MG/DL Urine Blood NEG (NEG) Urine Nitrite NEG (NEG) Ur Leukocyte Esterase NEG (NEG) Urine Test NEGATIVE (NEGATIVE) 05/17/22 Range/Units 20:25 WBC (4.8-10.8) X10*3/uL RBC (4.20-5.50) X10*6/uL Hgb (12.0-16.0) g/dl Hct (37.0-47.0) % MCV (80.0-98.0) fL MCH (27.0-33.0) pg MCHC (31.0-35.0) g/dl RDW (11.0-16.0) % Plt Count (160-400) X10*3/uL MPV (9.4-12.3) fL Immature Gran % (Auto) (0.0-0.4) % Neut % (Auto) (45-73) % Lymph % (Auto) (20-40) % [place] % (Auto) (2-11) % Eos % (Auto) (0-4) % Baso % (Auto) (0-2) % Lymph # (Auto) (1.2-4.9) X10*3/uL [place] # (Auto) (0.1-1.2) X10*3/uL Eos # (Auto) (0.0-0.4) X10*3/uL Baso # (Auto) (0.0-0.2) X10*3/uL Abs Immat Gran (auto) (0.00-0.03) X10*3/uL Absolute Neuts (auto) (2.0-8.3) x10*3/uL Absolute Nucleated RBC (0.0-0.012) X10*3/uL Nucleated RBC % (auto) (0.0-0.2) /100WBC Sodium 140 (135-145) mmol/L Potassium 4.6 (3.3-5.1) mmol/L Chloride 103 (96-108) mmol/L Carbon Dioxide 28 (22-29) mmol/L Anion Gap 14 (12-20) BUN 9 (9-16) mg/dL Creatinine 0.70 (0.5-1.4) mg/dL Estim Creat Clear Calc 106.7 Estimated GFR > 60 Random Glucose 98 (60-115) mg/dL Calcium 9.4 (8.4-10.2) mg/dL Total Bilirubin 0.3 (0.0-1.0) mg/dL AST 12 (5-31) U/L ALT 8 (0-31) U/L Alkaline Phosphatase 63 (39-117) U/L Total Protein 7.3 (6.5-8.0) g/dL Albumin 4.4 (3.5-5.0) g/dL Urine Color Urine Appearance Urine pH (5.0-8.0) Ur Specific [place] (1.005-1.025) Urine Protein (NEG-TRACE) MG/DL Urine Glucose (UA) (NEG) MG/DL Urine Ketones (NEG) MG/DL Urine Blood (NEG) Urine Nitrite (NEG) Ur Leukocyte Esterase (NEG) Urine Test (NEGATIVE) Discharge Plan Discharge Clinical Impression: Dysuria, Vaginitis Patient Disposition: Home, Self-Care Instructions: Dysuria (ED) Additional Instructions: The urine came back negative for urinary tract infection or . Your blood work came back fine. Your swabs are pending. Return to ED for abdominal pain, nausea, vomiting, flank pain, vaginal bleeding, vaginal lesion, profuse vaginal discharge, flank pain, fever, chills, or any other concerning symptoms. Please follow-up with your primary care provider and OBGYN Prescriptions: New doxycycline hyclate 100 mg capsule 100 mg PO BID 7 Days Qty: 14 0RF metronidazole 500 mg tablet 500 mg PO BID 7 Days Qty: 14 0RF No Action cyclobenzaprine 10 mg tablet 10 mg PO TID PRN (Reason: muscle spasm) Qty: 10 0RF cefuroxime axetil 500 mg tablet 500 mg PO BID 7 Days Qty: 14 0RF ondansetron 4 mg tablet,disintegrating 4 mg PO Q6-8H PRN (Reason: nausea and vomiting) Qty: 7 0RF Stand Alone Forms: Work/School Release Interventions: ED Discharge Assessment Last Done: 05/18/22 00:59 Discharge Date/Time: 05/18/22 00:59 Print Language: Maltese
[2022-05-18] MEDS: cefTRIAXone sodium 500 MG, Lidocaine HCl 1 % MPF 1 ML IM (00:27)
[2022-05-18] MEDS: Fluconazole 150 MG TABLET PO (00:55)
[2022-05-18 03:51] LABS: CT PCR NOT DETECTED (Not Detect.); NG PCR NOT DETECTED (Not Detect.)
[2022-05-18 13:18] LABS: BV Int Neg Control Negative (Negative); BV Int Pos Control Positive (Positive)
== END 2022-05-18 00:59 | disposition home or self-care (01) ==
PROVIDERS: Physician Assistant; Emergency Provider Emergency Medicine
DX: R30.0 Dysuria (principal); B37.3 Candidiasis of vulva and vagina
CPT/HCPCS: 36415; 80053; 81003; 81025; 85025; 87480; 87491; 87510; 87591; 87660; 96372; 99282; 99284; J0696

== ENCOUNTER 2022-06-23 21:06 | Emergency (ER) | payer MEDICAID, SELFPAY ==
--- NOTE | ~2022-06-23 | XR_ITS ---
EXAMINATION: XR KNEE, RIGHT CLINICAL INFORMATION: Right knee pain COMPARISON: None TECHNIQUE: AP and lateral views of the right knee. FINDINGS: Bones and soft tissues are normal. No fracture or joint effusion. Alignment is anatomic. Joint spaces are well maintained. No abnormal soft tissue calcification. XR/XR knee RT 2V IMPRESSION: Normal right knee.
[2022-06-23 22:02] VITALS: BP 115/67; PULSE 73; RESP 18; TEMP 36.7; O2SAT 94; BMI 33.0
--- NOTE | 2022-06-24 01:19 | ED.LOWEXIN ---
HPI - Extremity Injury (Lower) General Chief Complaint: Extremity Injury, Lower Stated Complaint: knee pain Time Seen by Provider: 06/24/22 00:57 History of Present Illness HPI Narrative: Patient is a 22-year-old female presents today with having right knee pain. Pain worse with movement. Denies any systemic complaints. Denies any trauma. Pain worse with movement. Able to bear weight. Related Data Previous Rx's Medication Instructions Recorded cefuroxime axetil 500 mg tablet 500 mg PO BID 7 days #14 tabs 09/23/20 ondansetron 4 mg disintegrating 4 mg PO Q6-8H PRN nausea and 09/23/20 tablet vomiting #7 tabs cyclobenzaprine 10 mg tablet 10 mg PO TID PRN muscle spasm #10 04/28/21 tabs doxycycline hyclate 100 mg capsule 100 mg PO BID 7 days #14 caps 05/18/22 metronidazole 500 mg tablet 500 mg PO BID 7 days #14 tabs 05/18/22 fluconazole 150 mg tablet 150 mg PO Q3D 2 doses #2 tabs 05/19/22 (Diflucan) Allergies Allergy/AdvReac Type Severity Reaction Status Date / Time grapefruit [GRAPEFRUIT] Allergy Unknown ITCHY MOUTH Verified 06/23/22 22:02 orange [ORANGE] Allergy Unknown ITCHY MOUTH Verified 06/23/22 22:02 nitrofurantoin Allergy Vomiting Verified 06/23/22 22:02 [From Macrobid] Review of Systems Review of Systems: Positive right knee pain Yes all other systems are reviewed and are negative PMFSH Past Medical History Attestation statement: The following information was validated with the patient. Medical History No known health problems Social History Social History Alcohol intake: never Advance Directives: No Advance Directives Information Provided: No Physical Exam Vital Signs: Vital Signs: Last Vital Signs Temp 98.0 F 06/23/22 22:02 Pulse 73 06/23/22 22:02 Resp 18 06/23/22 22:02 BP 115/67 06/23/22 22:02 Pulse Ox 94 06/23/22 22:02 O2 Del Method 06/23/22 22:02 BMI result Body Mass Index 33.0 Appearance: Alert. Oriented X3. No acute distress. Eyes: Pupils equal, round and reactive to light. ENT: Pharynx normal. Neck: Normal inspection. Neck supple. No lymph nodes noted. No crepitus CVS: Normal heart rate and rhythm. Pulses normal. Normal S1 and S2 Respiratory: No respiratory distress. Breath sounds normal. No Wheezing. No rales Abdomen: Soft and nontender. No rigidity. No distention. good BS x4 Skin: Skin warm and dry. Normal skin color. Normal skin turgor. Extremities: Examination of right knee showed no effusion. Skin intact. Range of motion at the knee is somewhat limited secondary to pain. Distal pulses intact skin intact motor intact Neuro: Oriented X 3. No motor deficit. No sensory deficit. Moving all extermities. No slurred speech MDM - Extremity Injury (Lower) MDM Narrative Medical decision making narrative: X-ray showed no acute fracture question meniscal versus ligamentous tear. Will have patient take Motrin and follow up Orthopedic on an outpatient basis. Medical Records Attestation: I reviewed the patient's medical records. Lab Data Attestation: I reviewed the patient's lab results. Discharge Plan Discharge Clinical Impression: Acute internal derangement of knee Patient Disposition: Home, Self-Care Additional Instructions: May use Motrin for pain. Rest ice elevate follow-up with orthopedics. Prescriptions: No Action cyclobenzaprine 10 mg tablet 10 mg PO TID PRN (Reason: muscle spasm) Qty: 10 0RF cefuroxime axetil 500 mg tablet 500 mg PO BID 7 Days Qty: 14 0RF ondansetron 4 mg tablet,disintegrating 4 mg PO Q6-8H PRN (Reason: nausea and vomiting) Qty: 7 0RF doxycycline hyclate 100 mg capsule 100 mg PO BID 7 Days Qty: 14 0RF metronidazole 500 mg tablet 500 mg PO BID 7 Days Qty: 14 0RF fluconazole [Diflucan] 150 mg tablet 150 mg PO Q3D Qty: 2 0RF Rx Instructions: may repeat second dose 72 hrs after first dose if symptoms persist Referrals: Rajan Hodges MD [Physician] -
== END 2022-06-24 01:44 | disposition home or self-care (01) ==
PROVIDERS: Emergency Provider Emergency Medicine Emergency Medical Services
DX: M23.91 Unspecified internal derangement of right knee (principal)
CPT/HCPCS: 73560; 99282; 99283

== ENCOUNTER 2022-07-20 | Outpatient (REF) | payer MEDICAID, SELFPAY ==
--- NOTE | ~2022-07-20 | XR_ITS ---
EXAMINATION: XR BOTH KNEES AP STANDING XR RIGHT KNEE, 2 VIEWS CLINICAL INFORMATION: Pain in the right knee. COMPARISON: 06/23/2022 TECHNIQUE: Standing AP view of both knees and sunrise view of the right knee. FINDINGS: LEFT KNEE: Bones and soft tissues are normal. No fracture or joint effusion. Alignment is anatomic. Joint spaces are well maintained. No abnormal soft tissue calcification. RIGHT KNEE: Bones and soft tissues are normal. No fracture or joint effusion. Alignment is anatomic. Joint spaces are well maintained. No abnormal soft tissue calcification. XR/XR knee RT 1V IMPRESSION: Normal radiographs of the knees
--- NOTE | ~2022-07-20 | XR_ITS ---
EXAMINATION: XR BOTH KNEES AP STANDING XR RIGHT KNEE, 2 VIEWS CLINICAL INFORMATION: Pain in the right knee. COMPARISON: 06/23/2022 TECHNIQUE: Standing AP view of both knees and sunrise view of the right knee. FINDINGS: LEFT KNEE: Bones and soft tissues are normal. No fracture or joint effusion. Alignment is anatomic. Joint spaces are well maintained. No abnormal soft tissue calcification. RIGHT KNEE: Bones and soft tissues are normal. No fracture or joint effusion. Alignment is anatomic. Joint spaces are well maintained. No abnormal soft tissue calcification. XR/XR knee standing BI IMPRESSION: Normal radiographs of the knees
== END 2022-07-20 00:01 | disposition home or self-care (01) ==
LOC: HO.HOSX
PROVIDERS: Visit Provider Physician Assistant
DX: M22.2X1 Patellofemoral disorders, right knee (principal)
CPT/HCPCS: 73560; 73565; 99202

== ENCOUNTER 2022-08-19 15:57 | Emergency (ER) | payer MEDICAID, SELFPAY ==
[2022-08-19 17:01] VITALS: BP 120/85; PULSE 79; RESP 18; TEMP 36.9; O2SAT 99; BMI 33.0
--- NOTE | 2022-08-19 17:30 | ED.GENADULT ---
HPI - General Adult General Chief complaint: General Medical Stated complaint: Body aches/ Cough/ Congestion Time Seen by Provider: 08/19/22 17:11 Source: patient Mode of arrival: ambulatory Limitations: no limitations History of Present Illness HPI narrative: Presents to ED for body aches, cough, headache, nasal congestion. Patient states she was exposed to RSV and COVID. Patient denies any chest pain or shortness of breath. Patient states also sore throat Related Data Home Medications Medication Instructions Recorded Confirmed cetirizine 10 mg tablet 10 mg PO DAILY 07/20/22 clonidine HCl 0.1 mg tablet 0.1 mg PO BID 07/20/22 norgestimate 0.25 mg-ethinyl 1 tab PO DAILY 07/20/22 estradiol 35 mcg tablet Previous Rx's Medication Instructions Recorded ondansetron 4 mg disintegrating 4 mg PO Q6-8H PRN nausea and 09/23/20 tablet vomiting #7 tabs metronidazole 500 mg tablet 500 mg PO BID 7 days #14 tabs 05/18/22 fluconazole 150 mg tablet 150 mg PO Q3D 2 doses #2 tabs 05/19/22 (Diflucan) Allergies Allergy/AdvReac Type Severity Reaction Status Date / Time grapefruit [GRAPEFRUIT] Allergy Unknown ITCHY MOUTH Verified 07/20/22 14:46 orange [ORANGE] Allergy Unknown ITCHY MOUTH Verified 07/20/22 14:46 nitrofurantoin Allergy Vomiting Verified 07/20/22 14:46 [From Macrobid] Review of Systems Review of Systems: Sore throat, cough, and body aches Yes all other systems are reviewed and are negative PMFSH Past Medical History Medical History (Updated 08/19/22 @ 18:40 by KIKI Ledesma) Depressed History of posttraumatic stress disorder (PTSD) Insomnia No known health problems Social phobia Social History Social History (Updated 07/20/22 @ 14:49 by PENG Jones) Alcohol intake: never Advance Directives: No Advance Directives Information Provided: No Current occupation: [employer] Physical Exam ED Vital Signs: Vital Signs - 24 hr 08/19/22 17:01 Temperature 98.4 F Pulse Rate 79 Respiratory Rate 18 Blood Pressure 120/85 Pulse Oximetry 99 Oxygen Delivery Method Room Air BMI result Body Mass Index 33.0 Const General: cooperative, healthy appearing, comfortable, no acute distress, well developed, alert, awake and Physically active Orientation/consciousness: oriented to person, oriented to place, oriented to time and patient oriented x3 [facility] Head: Yes normal to inspection, Yes No palpable skull fracture present, Yes normocephalic, Yes atraumatic and No abrasion Ears: hearing grossly normal bilaterally, external ears normal, TM's normal bilaterally, EAC's normal, mastoids normal and no periauricular adenopathy Throat: Yes posterior oropharynx normal, Yes tonsils normal and Yes uvula midline Eyes General: appearance normal, both eyes and all related structures Neck Neck: Yes normal visual inspection, Yes full ROM, Yes no lymphadenopathy, Yes no meningeal signs, Yes trachea midline, Yes supple, No anterior neck swelling and No tender Chest Chest palpation & inspection: normal inspection of the chest and normal palpation of entire chest wall Resp Effort & Inspection: normal respiratory effort and able to speak in complete sentences Auscultation: clear to auscultation bilaterally Cardio Jugular venous distension: no JVD Heart sounds: S1 normal heart sound present and S2 normal heart sound present GI Inspection: Yes normal to inspection and No abdominal wall ecchymosis Palpation (GI): not firm, nontender, no guarding and not rigid General: No CVA tenderness and Yes no CVA tenderness Back/Spine/Pelvis Back: no CVA tenderness, No CVA tenderness and No back tenderness Skin General skin exam: no rashes or lesions noted and elasticity normal Neuro General: oriented to person, oriented to place, oriented to time, patient oriented x3, gait normal, no meningeal signs, no focal motor deficits and CN's II-XI intact bilaterally Extrem General: Yes normal to inspection and Yes full ROM Psych Appearance: grossly normal, well kempt and not disheveled Course Course Course Narrative: Patient swabbed for SARS and strep Reevaluation(s) Reevaluation #1: Swab and strep negative. Patient informed to get retested in 5 days from onset of symptoms. Patient well-appearing Time: 18:37 Medical Decision Making [facility] Narrative Medical decision making narrative: Viral syndrome Lab Data Labs: Lab Results 08/19/22 08/19/22 Range/Units 17:12 17:38 Influenza Type A (PCR) NEGATIVE (Negative) Influenza Type B (PCR) NEGATIVE (Negative) RSV RNA Qual (PCR) NEGATIVE (Negative) SARS-CoV-2 RNA (RT-PCR) NEGATIVE (Negative) S. pyogenes GrpA JAISON Negative (Negative) Discharge Plan Discharge Clinical Impression: Acute viral syndrome Patient Disposition: Home, Self-Care Instructions: Viral Syndrome (ED) Additional Instructions: Your strep, SARS, RSV, and COVID came back negative. Recommend retesting in 5 days from the onset of symptoms. Return to the ED immediately for any chest pain, shortness of breath, drooling, change in voice, weakness, dizziness, or any other concerning symptoms. Please follow-up with primary care provider Prescriptions: No Action ondansetron 4 mg tablet,disintegrating 4 mg PO Q6-8H PRN (Reason: nausea and vomiting) Qty: 7 0RF metronidazole 500 mg tablet 500 mg PO BID 7 Days Qty: 14 0RF fluconazole [Diflucan] 150 mg tablet 150 mg PO Q3D Qty: 2 0RF Rx Instructions: may repeat second dose 72 hrs after first dose if symptoms persist cetirizine 10 mg tablet 10 mg PO DAILY norgestimate-ethinyl estradiol 0.25-35 mg-mcg tablet 1 tab PO DAILY clonidine HCl 0.1 mg tablet 0.1 mg PO BID Referrals: [facility] [Primary Care Provider] - (Viral Syndrome) Stand Alone Forms: Work/School Release Interventions: ED Discharge Assessment Last Done: 08/19/22 19:42 Discharge Date/Time: 08/19/22 19:42 Print Language: B[place]an
[2022-08-19 17:56] LABS: Strep A Nucleic Acid Negative (Negative)
[2022-08-19 18:02] LABS: Influenza A PCR NEGATIVE (Negative); Influenza B PCR NEGATIVE (Negative); Resp Syncy Virus RNA Qual PCR NEGATIVE (Negative); SARS COV2 PCR INHOUSE NEGATIVE (Negative)
== END 2022-08-19 19:42 | disposition home or self-care (01) ==
PROVIDERS: Physician Assistant; Physician Assistant Medical; Emergency Provider Internal Medicine
DX: B34.9 Viral infection, unspecified (principal); J02.9 Acute pharyngitis, unspecified; Z20.822 Contact with and (suspected) exposure to COVID-19
CPT/HCPCS: 0241U; 36415; 87651; 99282; 99283

== ENCOUNTER 2022-12-30 12:08 | Emergency (ER) | payer MEDICAID, SELFPAY ==
--- NOTE | ~2022-12-30 | XR_ITS ---
EXAMINATION: XR ELBOW LEFT XR SHOULDER LEFT XR WRIST LEFT CLINICAL INFORMATION: Pain after fall COMPARISON: None TECHNIQUE: Left shoulder, 3 views Left wrist, 4 views Left elbow, 3 views FINDINGS: Left shoulder: The bones, joints and soft tissues are normal. The humeral head is well-positioned over the intact glenoid. The visualized left lung is normal. No rib fractures are seen within the included [id number]. Left elbow: The bones, joints and soft tissues are normal. No evidence of fracture, subluxation or joint effusion. No focal soft tissue swelling. Left wrist: The distal radius, ulna and radioulnar joint are normal. Carpal bones are intact and have normal alignment. The joint spaces of the wrist are normal. The visualized metacarpals and metacarpophalangeal joints are normal. No focal soft tissue swelling. XR/XR wrist LT min 3V IMPRESSION: * Normal left shoulder. No fracture or malalignment. * Normal left elbow. * Normal left wrist.
--- NOTE | ~2022-12-30 | XR_ITS ---
EXAMINATION: XR ELBOW LEFT XR SHOULDER LEFT XR WRIST LEFT CLINICAL INFORMATION: Pain after fall COMPARISON: None TECHNIQUE: Left shoulder, 3 views Left wrist, 4 views Left elbow, 3 views FINDINGS: Left shoulder: The bones, joints and soft tissues are normal. The humeral head is well-positioned over the intact glenoid. The visualized left lung is normal. No rib fractures are seen within the included [id number]. Left elbow: The bones, joints and soft tissues are normal. No evidence of fracture, subluxation or joint effusion. No focal soft tissue swelling. Left wrist: The distal radius, ulna and radioulnar joint are normal. Carpal bones are intact and have normal alignment. The joint spaces of the wrist are normal. The visualized metacarpals and metacarpophalangeal joints are normal. No focal soft tissue swelling. XR/XR elbow LT min 3V IMPRESSION: * Normal left shoulder. No fracture or malalignment. * Normal left elbow. * Normal left wrist.
--- NOTE | ~2022-12-30 | XR_ITS ---
EXAMINATION: XR ELBOW LEFT XR SHOULDER LEFT XR WRIST LEFT CLINICAL INFORMATION: Pain after fall COMPARISON: None TECHNIQUE: Left shoulder, 3 views Left wrist, 4 views Left elbow, 3 views FINDINGS: Left shoulder: The bones, joints and soft tissues are normal. The humeral head is well-positioned over the intact glenoid. The visualized left lung is normal. No rib fractures are seen within the included [id number]. Left elbow: The bones, joints and soft tissues are normal. No evidence of fracture, subluxation or joint effusion. No focal soft tissue swelling. Left wrist: The distal radius, ulna and radioulnar joint are normal. Carpal bones are intact and have normal alignment. The joint spaces of the wrist are normal. The visualized metacarpals and metacarpophalangeal joints are normal. No focal soft tissue swelling. XR/XR shoulder LT min 2V IMPRESSION: * Normal left shoulder. No fracture or malalignment. * Normal left elbow. * Normal left wrist.
[2022-12-30 12:10] VITALS: BP 120/80; PULSE 95; RESP 18; TEMP 36.6; O2SAT 98; BMI 31.1
--- NOTE | 2022-12-30 12:12 | ED_ITS ---
HPI - Extremity Injury (Upper) General Chief Complaint: General Medical <KIKI Pennington - Last Filed: 12/30/22 12:14> Stated Complaint: Fall arm pain <KIKI Pennington - Last Filed: 12/30/22 12:14> Time Seen by Provider: 12/30/22 14:04 <KIKI Pennington - Last Filed: 12/30/22 12:14> Source: patient <Jen Shearer NP - Last Filed: 12/30/22 18:51> Mode of arrival: ambulatory <Jen Shearer NP - Last Filed: 12/30/22 18:51> Limitations: no limitations <Jen Shearer NP - Last Filed: 12/30/22 18:51> History of Present Illness HPI narrative: patient is a 22yo female who presented for left sided pain of her shoulder, elbow, and knee following a fall 1 night ago. Patient said she stumbled and fell over a concrete post in a parking lot, hitting her elbow first, then her shoulder and knee. She was not sure if she hit her head but endorsed mild pain over her left restorationist. Patient denied any swelling, redness, or erythema. She denied LOC, confusion, or amnesia. patient stated she has difficulty moving he shoulder or straitening her elbow. <Jen Shearer NP - Last Filed: 12/30/22 18:51> MD complaint: injury to: left (shoulder, elbow, knee) <Jen Shearer NP - Last Filed: 12/30/22 18:51> Onset (ago): hour(s) (8) <Jen Shearer NP - Last Filed: 12/30/22 18:51> Other Extremity Injury: left: elbow and shoulder <Jen Shearer NP - Last Filed: 12/30/22 18:51> Other injuries: LLE (knee) <Jen Shearer NP - Last Filed: 12/30/22 18:51> Handedness: right <Jen Shearer NP - Last Filed: 12/30/22 18:51> Place: outdoors <Jen Shearer NP - Last Filed: 12/30/22 18:51> Severity: moderate <Jen Shearer NP - Last Filed: 12/30/22 18:51> Severity scale (1-10): 10 <Jen Shearer NP - Last Filed: 12/30/22 18:51> Exacerbating factors: movement of extremity <Jen Shearer NP - Last Filed: 12/30/22 18:51> Context: fall <Jen Shearer NP - Last Filed: 12/30/22 18:51> Associated symptoms: denies other symptoms <Jen Shearer NP - Last Filed: 12/30/22 18:51> Related Data Home Medications: Home Medications Medication Instructions Recorded Confirmed cetirizine 10 mg tablet 10 mg PO DAILY 07/20/22 clonidine HCl 0.1 mg tablet 0.1 mg PO BID 07/20/22 norgestimate 0.25 mg-ethinyl 1 tab PO DAILY 07/20/22 estradiol 35 mcg tablet Previous Rx's Medication Instructions Recorded ondansetron 4 mg disintegrating 4 mg PO Q6-8H PRN nausea and 09/23/20 tablet vomiting #7 tabs metronidazole 500 mg tablet 500 mg PO BID 7 days #14 tabs 05/18/22 fluconazole 150 mg tablet 150 mg PO Q3D 2 doses #2 tabs 05/19/22 (Diflucan) <KIKI Pennington - Last Filed: 12/30/22 12:14> Allergies/Adverse Reactions: Allergies Allergy/AdvReac Type Severity Reaction Status Date / Time grapefruit [GRAPEFRUIT] Allergy Unknown ITCHY MOUTH Verified 07/20/22 14:46 orange [ORANGE] Allergy Unknown ITCHY MOUTH Verified 07/20/22 14:46 nitrofurantoin Allergy Vomiting Verified 07/20/22 14:46 [From Macrobid] pineapple Allergy Itching Verified 12/30/22 12:10 <KIKI Pennington - Last Filed: 12/30/22 12:14> Review of Systems Review of Systems: Yes all other systems are reviewed and are negative <Jen Shearer NP - Last Filed: 12/30/22 18:51> Constitutional: Constitutional: Reports no additional constitutional complaints, Denies body ache(s), Denies chills, Denies fever(s), Denies headache(s) and Denies weakness <Jen Shearer OPEN SOURCE DEVELOPER - Last Filed: 12/30/22 18:51> Eyes: Eyes: Reports no additional eye complaints and Denies change in vision <Jen Shearer OPEN SOURCE DEVELOPER - Last Filed: 12/30/22 18:51> ENT: Reports system reviewed and no additional complaints, except as documented, Denies dizziness, Denies headache(s), Denies nasal congestion, Denies nasal discharge and Denies neck pain <Jen Shearer [employer] SOURCE DEVELOPER - Last Filed: 12/30/22 18:51> Cardiovascular: Cardiovascular: Reports no additional cardiovascular complaints, Denies chest pain, Denies leg edema and Denies dyspnea <Jen Shearer OPEN SOURCE DEVELOPER - Last Filed: 12/30/22 18:51> Respiratory: Respiratory: Reports no additional respiratory complaints, Denies cough and Denies dyspnea <Jen Shearer OPEN SOURCE DEVELOPER - Last Filed: 12/30/22 18:51> Gastrointestinal: Gastrointestinal: Reports no additional gastrointestinal complaints, Denies abdominal pain, Denies diarrhea, Denies nausea and Denies vomiting <Jen Shearer OPEN SOURCE DEVELOPER - Last Filed: 12/30/22 18:51> Genitourinary: Genitourinary: Reports no additional female genitourinary complaints and Denies urinary incontinence <Jen Shearer OPEN SOURCE DEVELOPER - Last Filed: 12/30/22 18:51> Musculoskeletal: Musculoskeletal: Reports no additional musculoskeletal complaints, Denies back pain, Reports arthralgias, Denies joint swelling, Denies limited range of motion, Denies neck pain, Denies numbness and Denies tingling <Jen Shearer OPEN SOURCE DEVELOPER - Last Filed: 12/30/22 18:51> Integumentary/Breasts: Skin/Breast: Reports system reviewed and no additional complaints, except as docu and Denies rash <Jen Shearer OPEN SOURCE DEVELOPER - Last Filed: 12/30/22 18:51> Neurologic: Reports system reviewed and no additional complaints, except as documented, Denies dizziness, Denies headache(s), Denies numbness, Denies tingling and Denies weakness <Jen Shearer NP - Last Filed: 12/30/22 18:51> [facility] Past Medical History Attestation statement: The following information was validated with the patient. <Jen Shearer NP - Last Filed: 12/30/22 18:51> Source: old records reviewed and nursing notes reviewed <Jen Shearer NP - Last Filed: 12/30/22 18:51> Medical History: Medical History Depressed History of posttraumatic stress disorder (PTSD) Insomnia No known health problems Social phobia <KIKI Pennington - Last Filed: 12/30/22 12:14> Social History Social History: Social History Alcohol intake: never Advance Directives: No Advance Directives Information Provided: No Current occupation: [employer] <KIKI Pennington - Last Filed: 12/30/22 12:14> Physical Exam Vital Signs: Vital Signs: Last Vital Signs Temp 98 F 12/30/22 12:10 Pulse 95 12/30/22 12:10 Resp 18 12/30/22 12:10 BP 120/80 12/30/22 12:10 Pulse Ox 98 12/30/22 12:10 BMI result Body Mass Index 31.1 <KIKI Pennington - Last Filed: 12/30/22 12:14> Vital Signs: Last Vital Signs Temp 98 F 12/30/22 12:10 Pulse 95 12/30/22 12:10 Resp 18 12/30/22 12:10 BP 120/80 12/30/22 12:10 Pulse Ox 98 12/30/22 12:10 BMI result Body Mass Index 31.1 <Jen Shearer NP - Last Filed: 12/30/22 18:51> Extrem: Other: no erythema or edema noted to LUE or LLE. Minimal superficial scrapes present on left knee. mild tenderness to palpation over medial aspect of left knee and olecranon process of left elbow. Full passive ROM noted in left shoulder, elbow, and knee with pain noted on extension of elbow and rotation of shoulder. full active ROM of left knee with decreased active ROM of left elbow and shoulder. <Jen Shearer NP - Last Filed: 12/30/22 18:51> Course Course Course Narrative: RME - 22 yo female presents to the ER for evaluation of LUE pain s/p slip and fall yesterday in a parking lot. She states her left arm ended up underneath her and she has had pain in the left shoulder and the entire left arm. Cannot abduct the arm or fully extend the elbow. No gross deformities. NV intact distally. Plan: XRs shoulder, elbow and wrist. <KIKI Pennington - Last Filed: 12/30/22 12:14> Medical Decision Making Medical Decision Making MDM Narrative: patient is a 22yo female presenting for pain to her left shoulder, elbow and knee following a fall last yesterday evening. x-ray of the shoulder, elbow, and wrist showed no fractures or misalignments. Patient likely has contusion following her fall. She was instructed to use Tylenol and ibuprofen PRN for pain management <Jen Shearer NP - Last Filed: 12/30/22 18:51> Differential Diagnosis Differential Diagnoses: The differential diagnosis associated with the presentation includes <Jen Shearer NP - Last Filed: 12/30/22 18:51> contusion, left arm fracture, left shoulder sprain, left shoulder dislocation <Jen Shearer NP - Last Filed: 12/30/22 18:51> Independent Interpretation I performed an independent interpretation of an: Plain X-Ray <Jen Shearer NP - Last Filed: 12/30/22 18:51> Interpretation: I have reviewed the radiologist's not and agree with the interpretation <Jen Shearer NP - Last Filed: 12/30/22 18:51> Radiology Impression Discussion of test interpretation with radiology: I have reviewed the radiologist's reading. <Jen Shearer NP - Last Filed: 12/30/22 18:51> Radiologist Impression: [address] [address] XRay Report Signed Patient: Julio Cesar AritaCharito MR#: [id number] : 2000 Acct:[id number] Age/Sex: 22 / F ADM Date: 12/30/22 Loc: HO.ED Attending Dr: Ordering Physician: Valerie Kelly Date of Service: 12/30/22 Procedure(s): XR shoulder LT min 2V Accession Number(s): [id number] cc: Valerie Kelly~ EXAMINATION: XR ELBOW LEFT XR SHOULDER LEFT XR WRIST LEFT CLINICAL INFORMATION: Pain after fall? COMPARISON: None? TECHNIQUE: Left shoulder, 3 views Left wrist, 4 views Left elbow, 3 views? FINDINGS: Left shoulder: The bones, joints and soft tissues are normal. The humeral head is well-positioned over the intact glenoid. The visualized left lung is normal. No rib fractures are seen within the included [id number]. Left elbow: The bones, joints and soft tissues are normal. No evidence of fracture, subluxation or joint effusion. No focal soft tissue swelling. Left wrist: The distal radius, ulna and radioulnar joint are normal. Carpal bones are intact and have normal alignment. The joint spaces of the wrist are normal. The visualized metacarpals and metacarpophalangeal joints are normal. No focal soft tissue swelling.? XR/XR shoulder LT min 2V IMPRESSION: *? Normal left shoulder. No fracture or malalignment. *? Normal left elbow. *? Normal left wrist.? ? <Jen Shearer NP - Last Filed: 12/30/22 18:51> Independent Historian Clinical information obtained from an independent historian. History obtained from or confirmed by: Parent <Jen Shearer NP - Last Filed: 12/30/22 18:51> Discharge Plan Discharge Clinical Impression: Contusion of left shoulder, Contusion of elbow, left, Contusion of left wrist <KIKI Pennington - Last Filed: 12/30/22 12:14> Patient Disposition: Home, Self-Care <KIKI Pennington - Last Filed: 12/30/22 12:14> Instructions: Contusion in Adults (ED) <KIKI Pennington - Last Filed: 12/30/22 12:14> Additional Instructions: X-rays show no fractures Ice to the area Motrin or tylenol for pain as needed Please discuss with your employer if this is work related <KIKI Pennington - Last Filed: 12/30/22 12:14> Prescriptions: No Action ondansetron 4 mg tablet,disintegrating 4 mg PO Q6-8H PRN (Reason: nausea and vomiting) Qty: 7 0RF metronidazole 500 mg tablet 500 mg PO BID 7 Days Qty: 14 0RF fluconazole [Diflucan] 150 mg tablet 150 mg PO Q3D Qty: 2 0RF Rx Instructions: may repeat second dose 72 hrs after first dose if symptoms persist cetirizine 10 mg tablet 10 mg PO DAILY norgestimate-ethinyl estradiol 0.25-35 mg-mcg tablet 1 tab PO DAILY clonidine HCl 0.1 mg tablet 0.1 mg PO BID <KIKI Pennington - Last Filed: 12/30/22 12:14> Referrals: Natividad Allen MD [Primary Care Provider] - 1 week <KIKI Pennington - Last Filed: 12/30/22 12:14> Stand Alone Forms: Work/School Release <KIKI Pennington - Last Filed: 12/30/22 12:14> Interventions: ED Discharge Assessment Last Done: 12/30/22 14:37 <KIKI Pennington - Last Filed: 12/30/22 12:14> Discharge Date/Time: 12/30/22 14:38 <KIKI Pennington - Last Filed: 12/30/22 12:14>
== END 2022-12-30 14:38 | disposition home or self-care (01) ==
PROVIDERS: Emergency Provider Emergency Medicine; PCP General Practice
DX: S40.012A Contusion of left shoulder, initial encounter (principal); S60.212A Contusion of left wrist, initial encounter; W01.10XA Fall on same level from slipping, tripping and stumbling with subsequent striking against unspecified object, initial encounter; Y93.9 Activity, unspecified; Y92.9 Unspecified place or not applicable; Y99.9 Unspecified external cause status; Z79.899 Other long term (current) drug therapy
CPT/HCPCS: 73030; 73080; 73110; 99282; 99283

== ENCOUNTER 2023-02-22 19:41 | Emergency (ER) | payer MEDICAID, SELFPAY ==
[2023-02-22 19:52] VITALS: BP 121/70; PULSE 108; RESP 18; TEMP 36.8; O2SAT 98; BMI 30.8
--- NOTE | 2023-02-22 19:52 | ED_ITS ---
HPI - Female Genitourinary General Chief complaint: Vaginal Bleeding Stated complaint: vaginal bleeding Time Seen by Provider: 02/22/23 22:04 Source: patient Mode of arrival: ambulatory Limitations: no limitations History of Present Illness HPI Narrative: This is a 22-year-old female presenting to the emergency department with complaints of vaginal bleeding, lightheadedness, headache, fatigue, malaise all of which have been going on for the past 4 weeks. Patient reports she has been having to change her pad tampon 4-5 times in a day, she reports that recently she was put on Depo-Provera on 12/11/2022. She was seen at [facility] and was advised to come in for further evaluation and treatment. Patient denies fevers, chills, chest pain, shortness of breath, vision changes, weakness, vomiting, abdominal pain, changes in bowel habits or urination. Related Data Home Medications Medication Instructions Recorded Confirmed cetirizine 10 mg tablet 10 mg PO DAILY 07/20/22 clonidine HCl 0.1 mg tablet 0.1 mg PO BID 07/20/22 norgestimate 0.25 mg-ethinyl 1 tab PO DAILY 07/20/22 estradiol 35 mcg tablet Previous Rx's Medication Instructions Recorded ondansetron 4 mg disintegrating 4 mg PO Q6-8H PRN nausea and 09/23/20 tablet vomiting #7 tabs metronidazole 500 mg tablet 500 mg PO BID 7 days #14 tabs 05/18/22 fluconazole 150 mg tablet 150 mg PO Q3D 2 doses #2 tabs 05/19/22 (Diflucan) Allergies Allergy/AdvReac Type Severity Reaction Status Date / Time grapefruit [GRAPEFRUIT] Allergy Unknown ITCHY MOUTH Verified 02/22/23 19:57 orange [ORANGE] Allergy Unknown ITCHY MOUTH Verified 02/22/23 19:57 nitrofurantoin Allergy Vomiting Verified 02/22/23 19:57 [From Macrobid] pineapple Allergy Itching Verified 02/22/23 19:57 Review of Systems Review of Systems: Constitutional : No Weight loss, No Fever, No Chills, + Fatigue, + Malaise ENT/Mouth : No sore throat, No Rhinorrhea Eyes: No Eye Pain, No Swelling, No Redness Cardiovascular : No Chest Pain, No SOB, No Dyspnea on Exertion, No Orthopnea, No Edema, No Palpitations Respiratory : No Cough, No Sputum, No Wheezing Gastrointestinal : No Nausea, No Vomiting, No Diarrhea, No Constipation, No abdominal Pain, No Hematochezia, No Melena Genitourinary : No Dysuria, No Urinary Frequency, No Hematuria, + vaginal bleeding Musculoskeletal : No joint pain, No Myalgias, No Joint Swelling Skin : No Skin Lesions, No rash Neuro : No Weakness, No Numbness, + Dizziness, + Headache Psych : No Anxiety/Panic, No Depression All other systems reviewed and are negative Yes all other systems are reviewed and are negative FOR[facility]LY [facility] Past Medical History Attestation statement: The following information was validated with the patient. Source: old records reviewed and nursing notes reviewed Medical History Depressed History of posttraumatic stress disorder (PTSD) Insomnia No known health problems Social phobia Social History Social History Alcohol intake: never Advance Directives: No Advance Directives Information Provided: Yes Current occupation: [email or web address] Physical Exam Vital Signs: Vital Signs: Last Vital Signs Temp 98.4 F 02/22/23 22:09 Pulse 84 02/22/23 22:09 Resp 16 02/22/23 22:09 BP 99/63 02/22/23 22:09 Pulse Ox 100 02/22/23 22:09 O2 Del Method Room Air 02/22/23 22:09 BMI result Body Mass Index 30.8 vss Appearance: Alert.? Oriented X3.? No acute distress.? Head: Normocephalic, atraumatic, no step-offs or deformities Eyes: Pupils equal, round and reactive to light.? ENT: Pharynx normal.? Neck: Normal inspection.? Neck supple.? CVS: Normal heart rate and rhythm.? Pulses normal.? Respiratory: No respiratory distress.? Breath sounds normal.? Abdomen: Soft and nontender.? Skin: Skin warm and dry.? Normal skin color.? Normal skin turgor.? Extremities: No lower extremity edema.? No calf ttp. 5/5 strength to bilateral upper and lower extremities Sensitive exam: Normal external genitalia on exam, speculum exam with normal cervix, vaginal canal with dry dark red blood. No active bleeding from the cervix. Cervical os is closed. No lesions, lumps or masses appreciated. No cervical motion tenderness. Neuro: Oriented X 3.? No motor deficit.? No sensory deficit. CN 2-12 intact Course Course Course Narrative: This is a rapid medical exam. Deferred additional HPI, ROS, PE to primary provider. 22 yo female here with vaginal bleeding x 4 weeks (has used 3 boxes of tampons during this time). C/o fatigue and weakness and headaches. Had depo shot in December (1st shot in a while). Will check labs, UA, ur preg. VSS Reevaluation(s) Reevaluation #1: Patient's CBC within normal limits. Second CBC pending to ensure patient's hemoglobin hematocrit did not drop. Chemistry unremarkable. Beta hCG negative. UA without infection. Time: 00:05 Reevaluation #2: I personally obtain labs and orthostatics vitals on this patient. Blood pressure lying 99/63 pulse of 84, sitting 106/66 pulse rate of 83, standing 107/74 with a pulse rate of 76. Patient does not report dizziness, lightheadedness. Occur up to a L of IV saline. Reevaluation #3: Repeat hemoglobin and hematocrit stable. Patient has not blood through any pads while in the department. Well appearing. Receiving IV fluids. After fluids or done patient to be discharged home. Went over strict return precautions and outlined on discharge. Educated patient on diagnosis and treatment plan, answered all question, patient verbalizes understanding. At this time patient will be discharged home, advised to return with new or worsening symptoms. Educated on worrisome signs and symptoms and when to return. At this time I feel comfortable discharge home. Time: 00:48 Medical Decision Making Medical Decision Making MDM Narrative: 22-year-old female presents with abnormal vaginal bleeding for the past 4 weeks after starting Depo-Provera does not think she is . Physical exam significant for Normal external genitalia on exam, speculum exam with normal cervix, vaginal canal with dry dark red blood. No active bleeding from the cervix. Cervical os is closed. No lesions, lumps or masses appreciat ed. No cervical motion tenderness. No abdominal tenderness to palpation. This is likely dysfunctional uterine bleeding secondary to Depo-Provera/menses. I do not suspect ovarian torsion, ruptured ovarian cyst, miscarriage. Will rule out electrolyte abnormalities and anemia. I do not suspect she will need transfusion. Patient's cerebellar function intact unlikely intracranial hemorrhage, stroke, posterior stroke. Headache likely typical. Plan labs, labs urine, orthostatic, fluids and Toradol for headache Differential Diagnosis Differential Diagnoses: The differential diagnosis associated with the presentation includes This is likely dysfunctional uterine bleeding secondary to Depo-Provera/menses. I do not suspect ovarian torsion, ruptured ovarian cyst, miscarriage. Will rule out electrolyte abnormalities and anemia. I do not suspect she will need transfusion. Patient's cerebellar function intact unlikely intracranial hemorrhage, stroke, posterior stroke. Headache likely typical. Admission/Observation Consideration of admission/observation: Escalation of care including admission/observation considered Not indicate Lab Data MDM Lab Attestation statement: I reviewed the patient's lab results. 02/22/23 20:33 02/22/23 20:33 Labs: Lab Results 02/22/23 02/22/23 02/22/23 Range/Units 20:33 20:33 20:33 WBC 8.5 (4.8-10.8) X10*3/uL RBC 4.77 (4.20-5.50) X10*6/uL Hgb 12.6 (12.0-16.0) g/dl Hct 37.3 (37.0-47.0) % MCV 78.2 L (80.0-98.0) fL MCH 26.4 L (27.0-33.0) pg MCHC 33.8 (31.0-35.0) g/dl RDW 13.6 (11.0-16.0) % Plt Count 213 (160-400) X10*3/uL MPV 9.7 (9.4-12.3) fL Immature Gran % (Auto) 0.1 (0.0-0.4) % Neut % (Auto) 64.6 (45-73) % Lymph % (Auto) 27.0 (20-40) % [place] % (Auto) 5.4 (2-11) % Eos % (Auto) 2.3 (0-4) % Baso % (Auto) 0.6 (0-2) % Lymph # (Auto) 2.3 (1.2-4.9) X10*3/uL [place] # (Auto) 0.5 (0.1-1.2) X10*3/uL Eos # (Auto) 0.2 (0.0-0.4) X10*3/uL Baso # (Auto) 0.1 (0.0-0.2) X10*3/uL Abs Immat Gran (auto) 0.01 (0.00-0.03) X10*3/uL Absolute Neuts (auto) 5.5 (2.0-8.3) x10*3/uL Absolute Nucleated RBC 0.000 (0.0-0.012) X10*3/uL Nucleated RBC % (auto) 0.0 (0.0-0.2) /100WBC PT 13.4 H (10.0-13.1) SEC INR 1.2 H (0.9-1.1) Sodium 141 (135-145) mmol/L Potassium 4.1 (3.3-5.1) mmol/L Chloride 107 (96-108) mmol/L Carbon Dioxide 27 (22-29) mmol/L Anion Gap 11 L (12-20) BUN 11 (9-16) mg/dL Creatinine 0.78 (0.5-1.4) mg/dL Estim Creat Clear Calc 104.9 Estimated GFR > 60 Random Glucose 104 (60-115) mg/dL Calcium 9.7 (8.4-10.2) mg/dL Total Bilirubin 0.7 (0.0-1.0) mg/dL Direct Bilirubin 0.2 (0.0-0.5) mg/dL AST 11 (5-31) U/L ALT 8 (0-31) U/L Alkaline Phosphatase 60 (39-117) U/L Total Protein 7.4 (6.5-8.0) g/dL Albumin 4.5 (3.5-5.0) g/dL Beta HCG, Quant < 2 mIU/mL Urine Color Urine Appearance Urine pH (5.0-9.0) Ur Specific [place] (1.005-1.025) Urine Protein (Neg-Trace) mg/dL Urine Glucose (UA) (Negative) mg/dL Urine Ketones (Negative) mg/dL Urine Blood (Negative) Urine Nitrite (Negative) Ur Leukocyte Esterase (Negative) Urine RBC (0-2) /HPF Urine WBC (0-5) /HPF Ur Squamous Epith Cells (0-2) /HPF Urine Bacteria (None Seen) Hyaline Casts (0-2) /LPF Urine Test (NEGATIVE) 02/22/23 02/22/23 02/23/23 Range/Units 20:33 20:33 00:38 WBC 8.9 (4.8-10.8) X10*3/uL RBC 4.64 (4.20-5.50) X10*6/uL Hgb 12.0 (12.0-16.0) g/dl Hct 36.2 L (37.0-47.0) % MCV 78.0 L (80.0-98.0) fL MCH 25.9 L (27.0-33.0) pg MCHC 33.1 (31.0-35.0) g/dl RDW 13.8 (11.0-16.0) % Plt Count 214 (160-400) X10*3/uL MPV 9.6 (9.4-12.3) fL Immature Gran % (Auto) 0.2 (0.0-0.4) % Neut % (Auto) 55.9 (45-73) % Lymph % (Auto) 34.6 (20-40) % [place] % (Auto) 5.5 (2-11) % Eos % (Auto) 3.1 (0-4) % Baso % (Auto) 0.7 (0-2) % Lymph # (Auto) 3.1 (1.2-4.9) X10*3/uL [place] # (Auto) 0.5 (0.1-1.2) X10*3/uL Eos # (Auto) 0.3 (0.0-0.4) X10*3/uL Baso # (Auto) 0.1 (0.0-0.2) X10*3/uL Abs Immat Gran (auto) 0.02 (0.00-0.03) X10*3/uL Absolute Neuts (auto) 5.0 (2.0-8.3) x10*3/uL Absolute Nucleated RBC 0.000 (0.0-0.012) X10*3/uL Nucleated RBC % (auto) 0.0 (0.0-0.2) /100WBC PT (10.0-13.1) SEC INR (0.9-1.1) Sodium (135-145) mmol/L Potassium (3.3-5.1) mmol/L Chloride (96-108) mmol/L Carbon Dioxide (22-29) mmol/L Anion Gap (12-20) BUN (9-16) mg/dL Creatinine (0.5-1.4) mg/dL Estim Creat Clear Calc Estimated GFR Random Glucose (60-115) mg/dL Calcium (8.4-10.2) mg/dL Total Bilirubin (0.0-1.0) mg/dL Direct Bilirubin (0.0-0.5) mg/dL AST (5-31) U/L ALT (0-31) U/L Alkaline Phosphatase (39-117) U/L Total Protein (6.5-8.0) g/dL Albumin (3.5-5.0) g/dL Beta HCG, Quant mIU/mL Urine Color Yellow Urine Appearance Clear Urine pH 6.0 (5.0-9.0) Ur Specific [place] 1.015 (1.005-1.025) Urine Protein Negative (Neg-Trace) mg/dL Urine Glucose (UA) Negative (Negative) mg/dL Urine Ketones Negative (Negative) mg/dL Urine Blood Small (1+) H (Negative) Urine Nitrite Negative (Negative) Ur Leukocyte Esterase Negative (Negative) Urine RBC 3-5 H (0-2) /HPF Urine WBC 0-5 (0-5) /HPF Ur Squamous Epith Cells 3-5 (0-2) /HPF Urine Bacteria None Seen (None Seen) Hyaline Casts 0-2 (0-2) /LPF Urine Test NEGATIVE (NEGATIVE) Tests considered The following testing was considered but not selected: Do hCG negative no indication for transvaginal ultrasound. No abdominal tenderness on exam therefore no need for CT scan or ultrasound. Core Measures AMI core measures followed: Yes Measure exclusions: not indicated Critical Care Time Critical Care Time Critical Care Time: Yes Total Critical Care Time: 35 Attestation: I attest to this time spent taking care of the patient, obtaining history, physical, reviewing labs, imaging, speaking to my attending Discharge Plan Discharge Clinical Impression: Dysfunctional uterine bleeding Patient Disposition: Home, Self-Care Instructions: Dysfunctional Uterine Bleeding (ED) Additional Instructions: Take your medications as prescribed. If you were prescribed antibiotics today, it is important that you take your medication to their entirety, do not skip any doses, do not finish them early. Follow-up with your primary care provider this week. Return to the emergency department with new or worsening symptoms. Such as fevers, chills, chest pain, shortness of breath, nausea, vomiting, dizziness, headache, vision changes, lethargy In case of emergency call 911 Please follow-up with OBGYN as soon as possible preferably within the next day or 2. Return immediately PE experience abdominal pain, increasing vaginal bleeding or your bleeding to more than 2 pads an hour. Laboratory studies, urine were reassuring. Prescriptions: No Action ondansetron 4 mg tablet,disintegrating 4 mg PO Q6-8H PRN (Reason: nausea and vomiting) Qty: 7 0RF metronidazole 500 mg tablet 500 mg PO BID 7 Days Qty: 14 0RF fluconazole [Diflucan] 150 mg tablet 150 mg PO Q3D Qty: 2 0RF Rx Instructions: may repeat second dose 72 hrs after first dose if symptoms persist cetirizine 10 mg tablet 10 mg PO DAILY norgestimate-ethinyl estradiol 0.25-35 mg-mcg tablet 1 tab PO DAILY clonidine HCl 0.1 mg tablet 0.1 mg PO BID Referrals: [facility] [Primary Care Provider] - 2 days Evan Simmons MD [Physician] - 1 day Stand Alone Forms: Work/School Release
[2023-02-22 20:37] LABS: MANUAL DIFF FLAG NO
[2023-02-22 20:41] LABS: Basophils Absolute Auto 0.1 X10*3/uL (0.0-0.2); Basophils Percent Auto 0.6 % (0-2); Eosinophils Absolute Auto 0.2 X10*3/uL (0.0-0.4); Eosinophils Percent Auto 2.3 % (0-4); Hematocrit 37.3 % (37.0-47.0); Hemoglobin 12.6 g/dl (12.0-16.0); Imm Gran Abs Auto 0.01 X10*3/uL (0.00-0.03); Imm Gran Pct Auto 0.1 % (0.0-0.4); Lymphocytes Absolute Auto 2.3 X10*3/uL (1.2-4.9); Mean Corpuscular HGB Conc 33.8 g/dl (31.0-35.0); Mean Corpuscular Hemoglobin 26.4 pg (27.0-33.0); Mean Corpuscular Volume 78.2 fL (80.0-98.0); Mean Platelet Volume 9.7 fL (9.4-12.3); Monocytes Absolute Auto 0.5 X10*3/uL (0.1-1.2); Monocytes Percent Auto 5.4 % (2-11); Neutrophils Absolute Auto 5.5 x10*3/uL (2.0-8.3); Neutrophils Percent Auto 64.6 % (45-73); Platelet Count 213 X10*3/uL (160-400); Red Blood Count 4.77 X10*6/uL (4.20-5.50); Red Cell Distribution Width 13.6 % (11.0-16.0); White Blood Count 8.5 X10*3/uL (4.8-10.8)
[2023-02-22 20:44] LABS: Appearance Urine Clear; Color Urine Yellow; Glucose Urine UA Negative (Negative); Leukocyte Esterase Urine Negative (Negative); Nitrite Urine Negative (Negative); Specific Gravity - Urine 1.015 (1.005-1.025); UMIC TRIGGER UACC YES; Urine Blood Small (1+) (Negative); Urine Ketones Negative (Negative); Urine Protein Negative (Neg-Trace)
[2023-02-22 20:45] LABS: UPreg QC Valid YES; Urine Pregnancy NEGATIVE (NEGATIVE)
[2023-02-22 20:48] LABS: INTERNATIONAL NORM RATIO 1.2 (0.9-1.1); Prothrombin Time 13.4 SEC (10.0-13.1)
[2023-02-22 20:56] LABS: Alanine Aminotransferase 8 U/L (0-31); Albumin Level 4.5 g/dL (3.5-5.0); Alkaline Phosphatase 60 U/L (39-117); Anion Gap 11 (12-20); Aspartate Amino Transferase 11 U/L (5-31); Bilirubin Direct 0.2 mg/dL (0.0-0.5); Bilirubin Total 0.7 mg/dL (0.0-1.0); Blood Urea Nitrogen 11 mg/dL (9-16); Calcium 9.7 mg/dL (8.4-10.2); Carbon Dioxide 27 mmol/L (22-29); Chloride 107 mmol/L (96-108); Creatinine Clr Calc Pharmacy 104.9; Estimated Glomerular Filt Rate > 60; Glucose Random 104 mg/dL (60-115); Potassium 4.1 mmol/L (3.3-5.1); Sodium 141 mmol/L (135-145); Total Protein 7.4 g/dL (6.5-8.0)
[2023-02-22 20:58] LABS: Bacteria Urine None Seen (None Seen); Hyaline Casts Urine 0-2 /LPF (0-2); WBC Urine 0-5 /HPF (0-5)
[2023-02-22 22:09] VITALS: BP 99/63; PULSE 84; RESP 16; TEMP 36.9; O2SAT 100
[2023-02-22 22:41] LABS: HCG Quantitative < 2 mIU/mL
[2023-02-23 00:44] LABS: MANUAL DIFF FLAG NO
[2023-02-23 00:45] LABS: Basophils Absolute Auto 0.1 X10*3/uL (0.0-0.2); Basophils Percent Auto 0.7 % (0-2); Eosinophils Absolute Auto 0.3 X10*3/uL (0.0-0.4); Eosinophils Percent Auto 3.1 % (0-4); Hematocrit 36.2 % (37.0-47.0); Imm Gran Abs Auto 0.02 X10*3/uL (0.00-0.03); Imm Gran Pct Auto 0.2 % (0.0-0.4); Lymphocytes Absolute Auto 3.1 X10*3/uL (1.2-4.9); Lymphocytes Percent Auto 34.6 % (20-40); Mean Corpuscular HGB Conc 33.1 g/dl (31.0-35.0); Mean Corpuscular Hemoglobin 25.9 pg (27.0-33.0); Mean Platelet Volume 9.6 fL (9.4-12.3); Monocytes Absolute Auto 0.5 X10*3/uL (0.1-1.2); Monocytes Percent Auto 5.5 % (2-11); Neutrophils Percent Auto 55.9 % (45-73); Platelet Count 214 X10*3/uL (160-400); Red Blood Count 4.64 X10*6/uL (4.20-5.50); Red Cell Distribution Width 13.8 % (11.0-16.0); White Blood Count 8.9 X10*3/uL (4.8-10.8)
[2023-02-23] MEDS: Ketorolac Tromethamine 15 MG/ML VIAL 30 MG IVPUSH (01:07)
[2023-02-23] MEDS: 0.9 % Sodium Chloride 1,000 ML 999 ML IV (01:09)
--- NOTE | 2023-02-23 01:48 | PC.NURSE ---
Addendum entered by Raquel Chin 02/23/23 01:52: assumed care to discharge for RN assigned Original Note: Discharge instructions given and explained to pt No apparent distress Ambulates safely and independently AOx4 IV cath tip intact upon removal
== END 2023-02-23 01:47 | disposition home or self-care (01) ==
PROVIDERS: Nurse Practitioner Family; Physician Assistant; Emergency Provider Internal Medicine
DX: N93.8 Other specified abnormal uterine and vaginal bleeding (principal)
CPT/HCPCS: 36415; 80048; 80076; 81001; 81025; 84702; 85025; 85610; 96374; 99284; J1885

== ENCOUNTER 2023-04-09 13:56 | Emergency (ER) | payer MEDICAID, SELFPAY ==
--- NOTE | ~2023-04-09 | CT_ITS ---
EXAMINATION: CT ANGIOGRAM OF THE CHEST WITH AND WITHOUT CONTRAST (CT PULMONARY ANGIOGRAM FOR PE) CLINICAL INFORMATION: Reason for Exam elevated d-dimer, pleuritic chest pain COMPARISON: None available. TECHNIQUE: Prior to contrast administration, noncontrast localization images were obtained. Subsequently, multidetector volumetric imaging was performed from the thoracic inlet to below the diaphragms following the administration of 80 mL Omnipaque 350 intravenous contrast. No contrast reaction reported Sagittal, coronal, and MIP oblique sagittal reformatted images were obtained on the CT workstation, uploaded to PACS, and reviewed. This CT examination was performed using dose optimization techniques as appropriate, variously including the following: *Automated exposure control *Adjustment of mA and/or kV according to patient size (this includes techniques or standardized protocols for targeted exams where dose is matched to indication/reason for exam; i.e. extremities or head) *Use of iterative reconstruction technique Total exam dose-length product 237 mGy-cm FINDINGS: QUALITY OF STUDY/CONTRAST BOLUS: Satisfactory. PULMONARY ARTERIES: No pulmonary emboli. THORACIC AORTA: No aneurysm. LUNG: No focal consolidation, nodules or masses. PLEURA: No pleural effusion or pneumothorax. MEDIASTINUM: Normal heart size. No pericardial effusion. No hilar or mediastinal lymphadenopathy. No evidence of septal bowing or right heart strain. CORONARY ARTERY CALCIFICATION: None visualized on this study. CHEST WALL/AXILLA: No axillary or internal mammary lymphadenopathy. OSSEOUS STRUCTURES: No acute or suspicious osseous abnormality. UPPER ABDOMEN: Unremarkable. No reflux of contrast into the hepatic veins to suggest elevated right heart pressures. CT/CT angio chest PE protocol IMPRESSION: No evidence of pulmonary embolism VTE: negative
--- NOTE | ~2023-04-09 | US_ITS ---
EXAMINATION: US ABDOMEN LIMITED CLINICAL INFORMATION: Epigastric pain. Left upper quadrant pain. COMPARISON: None available. TECHNIQUE: Real-time imaging of the pancreas, left kidney and spleen FINDINGS: PANCREAS: Normal. SPLEEN: Unremarkable. No mass or evidence of inflammation. Spleen measures 10.4 cm. LEFT KIDNEY: Normal. No hydronephrosis. No renal calculi or focal parenchymal lesions. The kidney measures 12.0 cm in maximum dimension. FREE FLUID: None. US/US abdomen limited IMPRESSION: Normal ultrasound of the left upper quadrant.
--- NOTE | ~2023-04-09 | XR_ITS ---
EXAMINATION: XR RIBS, LEFT CLINICAL INFORMATION: Left lower rib pain. COMPARISON: None available. TECHNIQUE: Frontal view of chest 3 views of the left ribs were obtained. FINDINGS: Lungs are clear. No consolidation, pneumothorax, or pleural effusion. The cardiomediastinal silhouette and pulmonary vasculature are normal. Osseous structures are unremarkable. Ribs are intact. No fractures are identified. XR/XR ribs LT min 3V w CXR1V IMPRESSION: Unremarkable examination.
--- NOTE | 2023-04-09 14:03 | ED.GENADULT ---
HPI - General Adult General Chief complaint: Abdominal Pain Stated complaint: L side pain Time Seen by Provider: 04/09/23 14:59 Source: patient, RN notes reviewed and old records reviewed Mode of arrival: ambulatory History of Present Illness HPI narrative: 22-year-old female with no significant past medical history presenting to ED complaining of intermittent LUQ abdominal pain and nausea x 2 weeks. Admits symptoms did start after a box falling on patient's left side. Patient reports pain is worse with movement, deep breathing, and eating. Denies fever/chills, abdominal pain, nausea/vomiting, pedal edema, hematuria/dysuria, CP/SOB Onset (ago): week(s) Related Data Home Medications Medication Instructions Recorded Confirmed cetirizine 10 mg tablet 10 mg PO DAILY 07/20/22 clonidine HCl 0.1 mg tablet 0.1 mg PO BID 07/20/22 norgestimate 0.25 mg-ethinyl 1 tab PO DAILY 07/20/22 estradiol 35 mcg tablet Previous Rx's Medication Instructions Recorded ondansetron 4 mg disintegrating 4 mg PO Q6-8H PRN nausea and 09/23/20 tablet vomiting #7 tabs metronidazole 500 mg tablet 500 mg PO BID 7 days #14 tabs 05/18/22 fluconazole 150 mg tablet 150 mg PO Q3D 2 doses #2 tabs 05/19/22 (Diflucan) ibuprofen 600 mg tablet 600 mg PO Q6H PRN fever or pain 04/09/23 #30 tabs Allergies Allergy/AdvReac Type Severity Reaction Status Date / Time grapefruit [GRAPEFRUIT] Allergy Unknown ITCHY MOUTH Verified 04/09/23 14:04 orange [ORANGE] Allergy Unknown ITCHY MOUTH Verified 04/09/23 14:04 nitrofurantoin Allergy Vomiting Verified 04/09/23 14:04 [From Macrobid] pineapple Allergy Itching Verified 04/09/23 14:04 Review of Systems Review of Systems: Constitutional: No Fever, No Chills ENT/Mouth: No Ear Pain, No Nasal Congestion, No sore throat, No Rhinorrhea, No Swallowing Difficulty Cardiovascular: + Chest Wall Pain, No SOB Respiratory: No Cough, No Sputum Gastrointestinal: + Nausea, No Vomiting, No Diarrhea, No Constipation, + Abdominal pain Genitourinary: No Dysuria, No Urinary Frequency, No Hematuria, No Urinary Incontinence/retention, No Flank Pain Musculoskeletal: No joint pain, No Myalgias, No Joint Swelling Skin: No Skin Lesions, No rash Neuro: No Weakness Yes all other systems are reviewed and are negative Constitutional: Constitutional: Reports as per [facility] Past Medical History Attestation statement: The following information was validated with the patient. Source: old records reviewed Medical History Depressed History of posttraumatic stress disorder (PTSD) Insomnia No known health problems Social phobia Social History Social History Alcohol intake: never Smoked in Last 30 Days: Yes Use of substances other than those prescribed or required for medical reasons: No Advance Directives: No Current occupation: [employer] Physical Exam ED Vital Signs: Vital Signs - 24 hr 04/09/23 14:04 04/09/23 16:11 04/09/23 18:55 Temperature 98.3 F Pulse Rate 78 75 62 Respiratory Rate 19 16 14 Blood Pressure 115/89 118/78 104/64 Pulse Oximetry 98 97 100 Oxygen Delivery Method Room Air Room Air Room Air BMI result Body Mass Index 28.2 Const General: cooperative, healthy appearing and no acute distress Orientation/consciousness: patient oriented x3 Limitations: no limitations HENMT Head: Yes normal to inspection and Yes atraumatic Ears: hearing grossly normal bilaterally General nose exam: Normal external nose present Face and sinus: Yes normal facial exam Eyes General: appearance normal, both eyes and all related structures EOM: EOMs intact bilaterally Neck Neck: Yes normal visual inspection and Yes no meningeal signs Chest Other: Left lower anterior rib tenderness to palpation. No erythema/ecchymosis or rash Chest palpation & inspection: normal inspection of the chest, no crepitus and tenderness Resp Effort & Inspection: normal respiratory effort and no respiratory distress Auscultation: clear to auscultation bilaterally, no crackles, no rales, no rhonchi and no wheezes Cardio Rate: regular rate Heart sounds: S1 normal heart sound present and S2 normal heart sound present GI Inspection: Yes normal to inspection Palpation (GI): Soft to palpation, Tenderness to palpation present (GI) in the epigastrum and in the LUQ; with no rebound tenderness, no guarding and not rigid General: Yes no CVA tenderness Back/Spine/Pelvis Back: no CVA tenderness Skin Rashes: no rashes Wounds: no wounds Neuro General: patient oriented x3, tone normal and no meningeal signs Gait exam (Neuro): Normal gait present Extrem General: Yes normal to inspection and Yes no pedal edema Course Course Course Narrative: This is an RME: Additional HPI, ROS, PE not included below will be deferred to primary provider. Patient is a 22 year old female presenting with left upper quadrant abdominal pain worsening for 2 weeks. Patient reports 7/10 pain that worsened last night. Patient reports nausea. Patient denies fever, chills, headache, vision changes, numbness, tingling, vomiting, coughing, shortness of breath. Plan: labs, urine -1610--no leukocytosis. D-dimer elevated > will obtain CTA to rule out PE -1630--ED care transferred to Dr. Travis pending troponin, x-ray, abdomen ultrasound, and CTA Medications Administered Discontinued Medications Generic Name Dose Route Start Last Admin Trade Name Raleighq PRN Reason Stop Dose Admin Al Hydroxide/Mg Hydroxide 30 ml 04/09/23 15:33 04/09/23 15:59 Magnesium Hydrox/Alum Hydrox 30 Ml Oral.Susp PO 04/09/23 15:34 30 ml ONCE ONE Administration Famotidine 20 mg 04/09/23 15:33 04/09/23 16:02 Famotidine/Pf 20 Mg/2 Ml Vial IVPUSH 04/09/23 15:34 20 mg ONCE ONE Administration Sodium Chloride 1,000 mls @ 999 mls/hr 04/09/23 15:15 04/09/23 17:44 Ns IV 04/09/23 16:15 Infused .Q1H1M DEACON Infusion Iohexol 100 ml 04/09/23 18:04 04/09/23 18:04 Iohexol 350 Mg/Ml 100 Ml Infus..Btl IV 04/09/23 18:05 65 ml ONCE ONE Administration Ketorolac Tromethamine 15 mg 04/09/23 15:33 04/09/23 15:59 Ketorolac Tromethamine 15 Mg/Ml Vial IVPUSH 04/09/23 15:34 15 mg ONCE ONE Administration Medical Decision Making Medical Decision Making MDM Narrative: 22-year-old female with no significant past medical history presenting to ED complaining of intermittent LUQ abdominal pain and nausea x 2 weeks. On exam vital signs stable, NAD, nontoxic appearing, abdomen soft with LUQ/epigastric tenderness, no rebound or guarding, mild left anterior lower rib and reproducible tenderness without evidence of trauma. No CVAT. Concern for pancreatitis vs costochondritis/rib contusion vs ? Renal stone/colic vs rib fracture vs PE. Lower suspicion for ACS, splenic injury/bleeding Plan: EKG, labs, rib x-ray, abdomen ultrasound, pain control Please refer to course for remaining clinical decision making, interpretation of labs/imaging results, and discussions with consultants and/or family members. Differential Diagnosis Differential Diagnoses: The differential diagnosis associated with the presentation includes As above Admission/Observation Consideration of admission/observation: Escalation of care including admission/observation considered Lab Data MDM Lab Attestation statement: I reviewed the patient's lab results. 04/09/23 14:25 04/09/23 14:25 Labs: Lab Results 04/09/23 04/09/23 04/09/23 Range/Units 14:25 14:25 14:25 WBC 8.5 (4.8-10.8) X10*3/uL RBC 4.61 (4.20-5.50) X10*6/uL Hgb 12.3 (12.0-16.0) g/dl Hct 36.8 L (37.0-47.0) % MCV 79.8 L (80.0-98.0) fL MCH 26.7 L (27.0-33.0) pg MCHC 33.4 (31.0-35.0) g/dl RDW 13.7 (11.0-16.0) % Plt Count 220 (160-400) X10*3/uL MPV 9.9 (9.4-12.3) fL Immature Gran % (Auto) 0.4 (0.0-0.4) % Neut % (Auto) 72.6 (45-73) % Lymph % (Auto) 19.3 L (20-40) % [place] % (Auto) 5.0 (2-11) % Eos % (Auto) 2.2 (0-4) % Baso % (Auto) 0.5 (0-2) % Lymph # (Auto) 1.6 (1.2-4.9) X10*3/uL [place] # (Auto) 0.4 (0.1-1.2) X10*3/uL Eos # (Auto) 0.2 (0.0-0.4) X10*3/uL Baso # (Auto) 0.0 (0.0-0.2) X10*3/uL Abs Immat Gran (auto) 0.03 (0.00-0.03) X10*3/uL Absolute Neuts (auto) 6.1 (2.0-8.3) x10*3/uL Absolute Nucleated RBC 0.000 (0.0-0.012) X10*3/uL Nucleated RBC % (auto) 0.0 (0.0-0.2) /100WBC D-Dimer High Sensitivty NG/ML Sodium 142 (135-145) mmol/L Potassium 4.2 (3.3-5.1) mmol/L Chloride 107 (96-108) mmol/L Carbon Dioxide 27 (22-29) mmol/L Anion Gap 12 (12-20) BUN 11 (9-16) mg/dL Creatinine 0.75 (0.5-1.4) mg/dL Estim Creat Clear Calc 108.6 Estimated GFR > 60 Random Glucose 90 (60-115) mg/dL Calcium 10.0 (8.4-10.2) mg/dL Magnesium 2.1 (1.6-2.6) mg/dL Total Bilirubin 0.4 (0.0-1.0) mg/dL AST 12 (5-31) U/L ALT 8 (0-31) U/L Alkaline Phosphatase 62 (39-117) U/L Troponin I High Sens (<3.5-17.0) ng/L Total Protein 7.8 (6.5-8.0) g/dL Albumin 4.3 (3.5-5.0) g/dL Lipase 26 (8-78) U/L Beta HCG, Quant < 2 mIU/mL Urine Color Urine Appearance Urine pH (5.0-9.0) Ur Specific [place] (1.005-1.025) Urine Protein (Neg-Trace) mg/dL Urine Glucose (UA) (Negative) mg/dL Urine Ketones (Negative) mg/dL Urine Blood (Negative) Urine Nitrite (Negative) Ur Leukocyte Esterase (Negative) 04/09/23 04/09/23 04/09/23 Range/Units 14:25 14:25 15:37 WBC (4.8-10.8) X10*3/uL RBC (4.20-5.50) X10*6/uL Hgb (12.0-16.0) g/dl Hct (37.0-47.0) % MCV (80.0-98.0) fL MCH (27.0-33.0) pg MCHC (31.0-35.0) g/dl RDW (11.0-16.0) % Plt Count (160-400) X10*3/uL MPV (9.4-12.3) fL Immature Gran % (Auto) (0.0-0.4) % Neut % (Auto) (45-73) % Lymph % (Auto) (20-40) % [place] % (Auto) (2-11) % Eos % (Auto) (0-4) % Baso % (Auto) (0-2) % Lymph # (Auto) (1.2-4.9) X10*3/uL [place] # (Auto) (0.1-1.2) X10*3/uL Eos # (Auto) (0.0-0.4) X10*3/uL Baso # (Auto) (0.0-0.2) X10*3/uL Abs Immat Gran (auto) (0.00-0.03) X10*3/uL Absolute Neuts (auto) (2.0-8.3) x10*3/uL Absolute Nucleated RBC (0.0-0.012) X10*3/uL Nucleated RBC % (auto) (0.0-0.2) /100WBC D-Dimer High Sensitivty 372 NG/ML Sodium (135-145) mmol/L Potassium (3.3-5.1) mmol/L Chloride (96-108) mmol/L Carbon Dioxide (22-29) mmol/L Anion Gap (12-20) BUN (9-16) mg/dL Creatinine (0.5-1.4) mg/dL Estim Creat Clear Calc Estimated GFR Random Glucose (60-115) mg/dL Calcium (8.4-10.2) mg/dL Magnesium (1.6-2.6) mg/dL Total Bilirubin (0.0-1.0) mg/dL AST (5-31) U/L ALT (0-31) U/L Alkaline Phosphatase (39-117) U/L Troponin I High Sens < 2.7 (<3.5-17.0) ng/L Total Protein (6.5-8.0) g/dL Albumin (3.5-5.0) g/dL Lipase (8-78) U/L Beta HCG, Quant mIU/mL Urine Color Yellow Urine Appearance Clear Urine pH 7.5 (5.0-9.0) Ur Specific [place] 1.015 (1.005-1.025) Urine Protein Negative (Neg-Trace) mg/dL Urine Glucose (UA) Negative (Negative) mg/dL Urine Ketones Negative (Negative) mg/dL Urine Blood Negative (Negative) Urine Nitrite Negative (Negative) Ur Leukocyte Esterase Negative (Negative) Independent Interpretation I performed an independent interpretation of an: EKG Radiology Impression Discussion of test interpretation with radiology: I have reviewed the radiologist's reading. Independent Historian Clinical information obtained from an independent historian. History obtained from or confirmed by: Parent External Record Review External record reviewed: Inpatient record, Office record, Outpatient record, Prior outpatient labs, Prior outpatient radiology, Primary care record and Outside ED record Tests considered The following testing was considered but not selected: CT considered but not needed at this time Prescription Management I considered prescription management with: Pain Medication Discharge Plan Discharge Clinical Impression: Contusion of rib on left side Patient Disposition: Home, Self-Care Instructions: Rib Contusion (ED) Additional Instructions: Take ibuprofen for pain The ultrasound and CT scans negative no rib fracture seen Prescriptions: New ibuprofen 600 mg tablet 600 mg PO Q6H PRN (Reason: fever or pain) Qty: 30 0RF No Action ondansetron 4 mg tablet,disintegrating 4 mg PO Q6-8H PRN (Reason: nausea and vomiting) Qty: 7 0RF metronidazole 500 mg tablet 500 mg PO BID 7 Days Qty: 14 0RF fluconazole [Diflucan] 150 mg tablet 150 mg PO Q3D Qty: 2 0RF Rx Instructions: may repeat second dose 72 hrs after first dose if symptoms persist cetirizine 10 mg tablet 10 mg PO DAILY norgestimate-ethinyl estradiol 0.25-35 mg-mcg tablet 1 tab PO DAILY clonidine HCl 0.1 mg tablet 0.1 mg PO BID Stand Alone Forms: Work/School Release
[2023-04-09 14:04] VITALS: BP 115/89; PULSE 78; RESP 19; TEMP 36.8; O2SAT 98; BMI 28.2
[2023-04-09 14:45] LABS: Alanine Aminotransferase 8 U/L (0-31); Albumin Level 4.3 g/dL (3.5-5.0); Alkaline Phosphatase 62 U/L (39-117); Anion Gap 12 (12-20); Aspartate Amino Transferase 12 U/L (5-31); Bilirubin Total 0.4 mg/dL (0.0-1.0); Blood Urea Nitrogen 11 mg/dL (9-16); Carbon Dioxide 27 mmol/L (22-29); Chloride 107 mmol/L (96-108); Creatinine Clr Calc Pharmacy 108.6; Estimated Glomerular Filt Rate > 60; Glucose Random 90 mg/dL (60-115); Lipase 26 U/L (8-78); Magnesium 2.1 mg/dL (1.6-2.6); Potassium 4.2 mmol/L (3.3-5.1); Sodium 142 mmol/L (135-145); Total Protein 7.8 g/dL (6.5-8.0)
--- NOTE | 2023-04-09 14:49 | PC.NURSE ---
pt reports 7/10 epigastric pain radiating to the left side. Mom at bedside.
--- NOTE | 2023-04-09 15:42 | PC.NURSE ---
pts fluids hung per order.
--- NOTE | 2023-04-09 16:09 | ECG_ITS ---
Test Reason : CP Blood Pressure : / mmHG Vent. Rate : 095 BPM Atrial Rate : 095 BPM P-R Int : 178 ms QRS Dur : 072 ms QT Int : 352 ms P-R-T Axes : 050 052 045 degrees QTc Int : 442 ms Normal sinus rhythm Normal ECG No previous ECGs available Referred By: Misti Bonilla Electronically Signed By:ROSENDO ROJAS
[2023-04-09 16:11] VITALS: BP 118/78; PULSE 75; RESP 16; O2SAT 97
[2023-04-09 18:55] VITALS: BP 104/64; PULSE 62; RESP 14; O2SAT 100
[2023-04-09 22:00] VITALS: BP 124/72; PULSE 75; RESP 16; TEMP 37.1; O2SAT 99
== END 2023-04-09 22:09 | disposition home or self-care (01) ==
PROVIDERS: Physician Assistant; Emergency Provider Emergency Medicine Emergency Medical Services
DX: S20.213A Contusion of bilateral front wall of thorax, initial encounter (principal); R10.12 Left upper quadrant pain; R07.81 Pleurodynia; R07.89 Other chest pain; Y29.XXXA Contact with blunt object, undetermined intent, initial encounter; Y93.9 Activity, unspecified; Y92.9 Unspecified place or not applicable; Y99.9 Unspecified external cause status; Z79.899 Other long term (current) drug therapy
CPT/HCPCS: 36415; 71101; 71275; 76705; 80053; 81003; 83690; 83735; 84484; 84702; 85025; 85379; 93005; 96361; 96374; 96375; 99284; 99285; J1885; Q9967

== ENCOUNTER 2023-04-23 18:16 | Outpatient (REF) | payer BC, SELFPAY | END 2023-04-23 18:17 | disposition home or self-care (01) | LOC: HO.HHCLNP 18:16 | PROVIDERS: Visit Provider Internal Medicine Geriatric Medicine | DX: Z13.89 Encounter for screening for other disorder (principal) | CPT/HCPCS: 0241U; 87070 ==

== ENCOUNTER 2023-04-23 19:46 | Outpatient (REF) | payer MEDICAID, SELFPAY ==
[2023-04-23 20:36] LABS: Influenza A PCR NEGATIVE (Negative); Influenza B PCR NEGATIVE (Negative); Resp Syncy Virus RNA Qual PCR NEGATIVE (Negative); SARS COV2 PCR INHOUSE NEGATIVE (Negative)
== END 2023-04-23 19:47 | disposition home or self-care (01) ==
LOC: HO.HHCLNP 19:46
PROVIDERS: Visit Provider Internal Medicine Geriatric Medicine
DX: Z20.822 Contact with and (suspected) exposure to COVID-19 (principal); J02.9 Acute pharyngitis, unspecified
CPT/HCPCS: 0241U; 87070

== ENCOUNTER 2023-05-15 21:21 | Emergency (ER) | payer MEDICAID, SELFPAY ==
[2023-05-15 21:39] VITALS: BP 110/84; PULSE 90; RESP 18; TEMP 36.9; O2SAT 100; BMI 28.3
--- NOTE | 2023-05-16 00:57 | ED.HA ---
HPI - Headache General Chief Complaint: Headache Stated Complaint: upper respiratory issues Time Seen by Provider: 05/16/23 00:46 Source: patient and family Mode of arrival: ambulatory Limitations: no limitations History of Present Illness HPI Narrative: 24-year-old female came in for evaluation of headache and coughing was upper respiratory symptoms for 3 days, patient was seen at urgent care yesterday and was diagnosed with URI came in today for persistent of the symptoms with facial pressure and headache, nasal congestion and patient unable to breathe from her nose. Had 1 time vomiting today. Related Data Home Medications Medication Instructions Recorded Confirmed cetirizine 10 mg tablet 10 mg PO DAILY 07/20/22 clonidine HCl 0.1 mg tablet 0.1 mg PO BID 07/20/22 norgestimate 0.25 mg-ethinyl 1 tab PO DAILY 07/20/22 estradiol 35 mcg tablet Previous Rx's Medication Instructions Recorded ondansetron 4 mg disintegrating 4 mg PO Q6-8H PRN nausea and 09/23/20 tablet vomiting #7 tabs metronidazole 500 mg tablet 500 mg PO BID 7 days #14 tabs 05/18/22 fluconazole 150 mg tablet 150 mg PO Q3D 2 doses #2 tabs 05/19/22 (Diflucan) ibuprofen 600 mg tablet 600 mg PO Q6H PRN fever or pain 04/09/23 #30 tabs amoxicillin 875 mg-potassium 1 tab PO BID #14 tabs 05/16/23 clavulanate 125 mg tablet Allergies Allergy/AdvReac Type Severity Reaction Status Date / Time grapefruit [GRAPEFRUIT] Allergy Unknown ITCHY MOUTH Verified 05/15/23 21:39 orange [ORANGE] Allergy Unknown ITCHY MOUTH Verified 05/15/23 21:39 nitrofurantoin Allergy Vomiting Verified 05/15/23 21:39 [From Macrobid] pineapple Allergy Itching Verified 05/15/23 21:39 Review of Systems Review of Systems: All other systems are reviewed and are negative Constitutional: Reports as per HPI and Reports no additional constitutional complaints Eyes: Reports as per HPI and Reports no additional eye complaints Reports system reviewed and no additional complaints, except as documented Cardiovascular: Reports as per HPI and Reports no additional cardiovascular complaints Respiratory: Reports as per HPI and Reports no additional respiratory complaints Gastrointestinal: Reports as per HPI and Reports no additional gastrointestinal complaints Genitourinary: Reports no additional female genitourinary complaints Musculoskeletal: Reports no additional musculoskeletal complaints Skin/Breast: Reports system reviewed and no additional complaints, except as docu Psychiatric: Reports no additional psychiatric complaints Endocrine: Reports no additional endocrine complaints Hematologic/Lymphatic: Reports no additional hematologic/lymphatic complaints Allergic/Immunologic: Reports no additional allergic/immunologic complaints Reports system reviewed and no additional complaints, except as documented and Reports Abnormal speech present [facility] Past Medical History Medical History Depressed History of posttraumatic stress disorder (PTSD) Insomnia No known health problems Social phobia Social History Social History Alcohol intake: never Advance Directives: No Advance Directives Information Provided: No Current occupation: [employer] Physical Exam Vital Signs: Vital Signs: Last Vital Signs Temp 98.4 F 05/15/23 21:39 Pulse 90 05/15/23 21:39 Resp 18 05/15/23 21:39 BP 110/84 05/15/23 21:39 Pulse Ox 100 05/15/23 21:39 O2 Del Method Room Air 05/15/23 21:39 BMI result Body Mass Index 28.3 Vital signs have been reviewed as appeared to be correct. Blood pressure normal. Heart rate normal. Respiration rate normal. Temperature normal. Oxygen saturation normal. Appearance: Alert. Oriented X3. No acute distress. Head: Normal external exam. Normocephalic. Atraumatic. No Rocha signs noted. No raccoon eyes noted Eyes: PERRLA. EOMI. Conjunctiva and sclera normal. Eyelids normal. ENT: TM's Normal. Pharynx normal. Uvula midline. Moist mucous membranes. No trismus noted. No drooling noted. No muffled voice noted. Tenderness with percussion on the left frontal and left maxillary sinuses, Neck: Normal inspection. Neck supple. FROM. No adenopathy. Thyroid Normal. No meningeal signs. No neck mass noted. CVS: Normal heart rate and rhythm. Heart sound normal. No murmurs noted. Pulses normal throughout. Respiratory: No respiratory distress. Painless inspiration. Breath sounds normal. No wheezes/rales/rhonchi noted. Chest nontender. No accessory muscle usage noted or decreased air movement noted. Abdomen: Soft, mild epigastric tenderness, no guarding, no rebound tenderness, no right lower quadrant tenderness. Bowel sounds normal in all 4 quadrants. No distention noted. No organomegaly noted. No visible injury noted. Back: No CVA tenderness. Full range of motion noted. Skin: Skin warm and dry. Normal skin color. Normal skin turgor. No rashes/lesions/lacerations noted. Extremities: No lower extremity edema. Extremities exhibit normal range of motion. Extremities nontender. Neuro: Oriented X 3. Cranial nerve exam: II-XII are grossly intact No motor deficit. No sensory deficit. Reflexes normal. Course Course Course Narrative: Acute sinusitis will start the patient on Augmentin for 7 days and follow-up with PCP. Medical Decision Making Differential Diagnosis Differential Diagnoses: The differential diagnosis associated with the presentation includes (URI, sinusitis, UR infection, migraine, UTI, .) Admission/Observation Consideration of admission/observation: Escalation of care including admission/observation considered Lab Data MDM Lab Attestation statement: I reviewed the patient's lab results. Discharge Plan Discharge Clinical Impression: Sinusitis Patient Disposition: Home, Self-Care Instructions: Sinusitis (ED) Prescriptions: New amoxicillin-pot clavulanate 875-125 mg tablet 1 tab PO BID Qty: 14 0RF No Action ondansetron 4 mg tablet,disintegrating 4 mg PO Q6-8H PRN (Reason: nausea and vomiting) Qty: 7 0RF metronidazole 500 mg tablet 500 mg PO BID 7 Days Qty: 14 0RF fluconazole [Diflucan] 150 mg tablet 150 mg PO Q3D Qty: 2 0RF Rx Instructions: may repeat second dose 72 hrs after first dose if symptoms persist ibuprofen 600 mg tablet 600 mg PO Q6H PRN (Reason: fever or pain) Qty: 30 0RF cetirizine 10 mg tablet 10 mg PO DAILY norgestimate-ethinyl estradiol 0.25-35 mg-mcg tablet 1 tab PO DAILY clonidine HCl 0.1 mg tablet 0.1 mg PO BID Referrals: [facility] [Primary Care Provider] -
[2023-05-16 00:58] VITALS: BP 112/62; PULSE 85; RESP 18; TEMP 37; O2SAT 100
[2023-05-16 01:30] LABS: IDNOW Serial# BCCEAD1C; Influenza A Negative (Negative)
[2023-05-16 01:31] LABS: COVID-19 Test Negative (Negative); IDNOW Serial# 08D9AD1C; Influenza B2 Negative (Negative)
[2023-05-16 01:32] LABS: Appearance Urine Clear; Color Urine Yellow; Glucose Urine UA Negative (Negative); Leukocyte Esterase Urine Negative (Negative); Nitrite Urine Negative (Negative); PH 6.5 (5.0-9.0); Urine Blood Negative (Negative); Urine Ketones Negative (Negative); Urine Protein Negative (Neg-Trace)
[2023-05-16 01:33] LABS: UPreg QC Valid YES; Urine Pregnancy NEGATIVE (NEGATIVE)
[2023-05-16] MEDS: Magnesium Hydrox/Alum Hydrox 30 ML ORAL.SUSP PO (01:36)
[2023-05-16] MEDS: ondansetron HCL 4 MG/2 ML VIAL IVPUSH (01:37)
[2023-05-16] MEDS: Amoxicillin/Potassium Clav 875 MG TABLET PO (01:37)
[2023-05-16] MEDS: 0.9 % Sodium Chloride 1,000 ML 999 ML IV (01:37)
--- NOTE | 2023-05-16 02:09 | PC.NURSE ---
Reviewed discharge instruction with pt, pt verbalized understanding, no sign of distress. Notified ANA PAULA Iraheta
== END 2023-05-16 02:16 | disposition home or self-care (01) ==
PROVIDERS: Physician Assistant Medical; Emergency Provider Emergency Medicine
DX: J32.9 Chronic sinusitis, unspecified (principal); R51.9 Headache, unspecified; R11.2 Nausea with vomiting, unspecified; Z20.822 Contact with and (suspected) exposure to COVID-19; Z20.828 Contact with and (suspected) exposure to other viral communicable diseases; Z79.899 Other long term (current) drug therapy
CPT/HCPCS: 81003; 81025; 87502; 87635; 96361; 96374; 99284; J2405

== ENCOUNTER 2023-06-25 19:42 | Emergency (ER) | payer MEDICAID, SELFPAY ==
[2023-06-25 20:04] VITALS: BP 113/81; PULSE 87; RESP 16; TEMP 36.9; O2SAT 96; BMI 30.2
--- NOTE | 2023-06-25 20:04 | ED.GENADULT ---
HPI - General Adult General Chief complaint: Urogenital-Female Stated complaint: Blood in urine Time Seen by Provider: 06/26/23 00:12 Source: patient, RN notes reviewed and old records reviewed Mode of arrival: ambulatory Limitations: no limitations History of Present Illness HPI narrative: 23-year-old female presents for evaluation of ?dark urine. ? Patient is concerned that she has a UTI. She went to urgent care and was given ?Diflucan and Pyridium. She is aware that the Pyridium may change the color of her urine She also endorses diarrhea and vomiting for the last 2 days Denies any fevers or chills She has some mild left lower abdominal pain Denies black or bloody stool Related Data Home Medications Medication Instructions Recorded Confirmed cetirizine 10 mg tablet 10 mg PO DAILY 07/20/22 clonidine HCl 0.1 mg tablet 0.1 mg PO BID 07/20/22 norgestimate 0.25 mg-ethinyl 1 tab PO DAILY 07/20/22 estradiol 35 mcg tablet Previous Rx's Medication Instructions Recorded ondansetron 4 mg disintegrating 4 mg PO Q6-8H PRN nausea and 09/23/20 tablet vomiting #7 tabs metronidazole 500 mg tablet 500 mg PO BID 7 days #14 tabs 05/18/22 fluconazole 150 mg tablet 150 mg PO Q3D 2 doses #2 tabs 05/19/22 (Diflucan) ibuprofen 600 mg tablet 600 mg PO Q6H PRN fever or pain 04/09/23 #30 tabs amoxicillin 875 mg-potassium 1 tab PO BID #14 tabs 05/16/23 clavulanate 125 mg tablet Allergies Allergy/AdvReac Type Severity Reaction Status Date / Time grapefruit [GRAPEFRUIT] Allergy Unknown ITCHY MOUTH Verified 06/25/23 20:04 orange [ORANGE] Allergy Unknown ITCHY MOUTH Verified 06/25/23 20:04 nitrofurantoin Allergy Vomiting Verified 06/25/23 20:04 [From Macrobid] pineapple Allergy Itching Verified 06/25/23 20:04 Review of Systems Constitutional: Constitutional: Denies chills, Denies fever(s) and Denies weakness Eyes: Eyes: Denies blurry vision ENT: Denies sore throat Cardiovascular: Cardiovascular: Denies chest pain, Denies rapid heart rate and Denies dyspnea Respiratory: Respiratory: Denies cough and Denies dyspnea Gastrointestinal: Gastrointestinal: Reports abdominal pain, Denies melena, Reports loose stools, Reports nausea and Reports vomiting Genitourinary: Genitourinary: Denies difficulty voiding Musculoskeletal: Musculoskeletal: Denies back pain Integumentary/Breasts: Skin/Breast: Denies rash Neurologic: Denies weakness PMFSH Past Medical History Medical History Depressed History of posttraumatic stress disorder (PTSD) Insomnia No known health problems Social phobia Social History Social History Alcohol intake: current Alcohol intake frequency: holidays/special occasions only Advance Directives: No Advance Directives Information Provided: Yes Current occupation: [employer] Physical Exam ED Vital Signs: Vital Signs - 24 hr 06/25/23 20:04 Temperature 98.5 F Pulse Rate 87 Respiratory Rate 16 Blood Pressure 113/81 Pulse Oximetry 96 Oxygen Delivery Method Room Air BMI result Body Mass Index 30.2 Const General: healthy appearing, comfortable, no acute distress, alert and awake Nutritional Appearance: well nourished Orientation/consciousness: patient oriented x3 HENMT Head: Yes normocephalic and Yes atraumatic Eyes Eyelids: Yes eyelids normal Conjunctivae: conjunctivae normal Sclerae: sclerae normal Corneas: corneas normal Pupils: Equal, round and reactive pupils present EOM: EOMs intact bilaterally Neck Neck: Yes full ROM Resp Effort & Inspection: normal respiratory effort, able to speak in complete sentences and not labored Cardio Rate: regular rate Rhythm: regular rhythm GI Inspection: No distended Palpation (GI): Soft to palpation, not firm, Tenderness to palpation present (GI) in the LLQ, no guarding and not rigid Skin General skin exam: elasticity normal Neuro General: patient oriented x3 Cranial nerves: Yes Equal, round and reactive pupils present and Yes Bilaterally intact EOM present Cognition (Neuro): normal cognition Extrem Other: Moving all extremities well without any obvious deformities Course Course Course Narrative: This is an RME: Additional HPI, ROS, PE not included below will be deferred to primary provider. 23 y o female presenting for evaluation of hematuria x2 days. Was seen at an urgent care today for vaginal pruritus and received an Rx today. Also reporting dysuria and associated increased urinary urgency and frequency. Denies fever, chills, nausea, vomiting, chest pain, shortness of breath and abdominal pain Plan: UA, labs Medical Decision Making Medical Decision Making [facility] Narrative: 23-year-old female presents for evaluation of lower abdominal pain and concern for UTI. She was given Diflucan and urgent care earlier. Her urine does not show bacteria or white cells. Not likely to be UTI. She reports having some vomiting and diarrhea earlier today, likely GI bug. Her abdominal exam is significant for mild left lower abdominal pain without guarding, no distention. She does have mild pancytopenia under hematology. Her white count is 4.0, her hemoglobin is 12.7 and her platelet count is 69 K. It is unclear ideology. She has a very mild transaminitis. These findings are possibly consistent with hepatitis-A. The patient reports that she has good follow-up. We considered CT imaging of the abdomen pelvis time, however after discussing risks and benefits the patient declined this and I feel it is appropriate. The patient will follow-up with her PCP to have repeat labs within 2 weeks Differential Diagnosis Differential Diagnoses: The differential diagnosis associated with the presentation includes Abdominal pain UTI Gastroenteritis Colitis Constipation Obstructive uropathy Lab Data [facility] Lab Attestation statement: I reviewed the patient's lab results. Mild pancytopenia as described above. No electrolyte abnormalities, normal renal function 06/25/23 20:18 06/25/23 20:18 Labs: Lab Results 06/25/23 Range/Units 20:18 WBC 4.0 L (4.8-10.8) X10*3/uL RBC 4.36 (4.20-5.50) X10*6/uL Hgb 11.7 L (12.0-16.0) g/dl Hct 35.1 L (37.0-47.0) % MCV 80.5 (80.0-98.0) fL MCH 26.8 L (27.0-33.0) pg MCHC 33.3 (31.0-35.0) g/dl RDW 13.6 (11.0-16.0) % Plt Count 69 L D (160-400) X10*3/uL MPV 10.9 (9.4-12.3) fL Immature Gran % (Auto) 0.5 H (0.0-0.4) % Neut % (Auto) 49.4 (45-73) % Lymph % (Auto) 39.2 (20-40) % [place] % (Auto) 8.9 (2-11) % Eos % (Auto) 1.5 (0-4) % Baso % (Auto) 0.5 (0-2) % Lymph # (Auto) 1.6 (1.2-4.9) X10*3/uL [place] # (Auto) 0.4 (0.1-1.2) X10*3/uL Eos # (Auto) 0.1 (0.0-0.4) X10*3/uL Baso # (Auto) 0.0 (0.0-0.2) X10*3/uL Abs Immat Gran (auto) 0.02 (0.00-0.03) X10*3/uL Absolute Neuts (auto) 2.0 (2.0-8.3) x10*3/uL Absolute Nucleated RBC 0.000 (0.0-0.012) X10*3/uL Nucleated RBC % (auto) 0.0 (0.0-0.2) /100WBC Smear Tech's Comments VERIFIED Sodium 140 (135-145) mmol/L Potassium 3.7 (3.3-5.1) mmol/L Chloride 106 (96-108) mmol/L Carbon Dioxide 25 (22-29) mmol/L Anion Gap 13 (12-20) BUN 8 L (9-16) mg/dL Creatinine 0.68 (0.5-1.4) mg/dL Estim Creat Clear Calc 123.0 Estimated GFR > 60 Random Glucose 83 (60-115) mg/dL Calcium 9.0 D (8.4-10.2) mg/dL Total Bilirubin 0.3 (0.0-1.0) mg/dL AST 63 H (5-31) U/L ALT 73 H (0-31) U/L Alkaline Phosphatase 58 (39-117) U/L Total Protein 7.1 (6.5-8.0) g/dL Albumin 4.0 (3.5-5.0) g/dL Urine Color Dark Yellow Urine Appearance Clear Urine pH 7.0 (5.0-9.0) Ur Specific [place] 1.015 (1.005-1.025) Urine Protein Negative (Neg-Trace) mg/dL Urine Glucose (UA) Negative (Negative) mg/dL Urine Ketones Negative (Negative) mg/dL Urine Blood Negative (Negative) Urine Nitrite Positive H (Negative) Ur Leukocyte Esterase Trace H (Negative) Urine RBC 0-2 (0-2) /HPF Urine WBC 0-5 (0-5) /HPF Ur Squamous Epith Cells 0-2 (0-2) /HPF Urine Bacteria None Seen (None Seen) Hyaline Casts 0-2 (0-2) /LPF Tests considered The following testing was considered but not selected: CT imaging of the abdomen pelvis was considered but ultimately declined Discharge Plan Discharge Clinical Impression: Abdominal pain Patient Disposition: Home, Self-Care Instructions: Abdominal Pain (ED) Additional Instructions: You do not appear to have a UTI, as there is no bacteria in your urine or white blood cells. Your pain is likely related to a stomach virus You have a mild pancytopenia. This means that your white blood cells, red blood cells and platelets are all slightly low. Follow this up with your primary doctor and have repeat labs in the next 1-2 weeks Return for new or worsening symptoms Prescriptions: No Action ondansetron 4 mg tablet,disintegrating 4 mg PO Q6-8H PRN (Reason: nausea and vomiting) Qty: 7 0RF metronidazole 500 mg tablet 500 mg PO BID 7 Days Qty: 14 0RF fluconazole [Diflucan] 150 mg tablet 150 mg PO Q3D Qty: 2 0RF Rx Instructions: may repeat second dose 72 hrs after first dose if symptoms persist ibuprofen 600 mg tablet 600 mg PO Q6H PRN (Reason: fever or pain) Qty: 30 0RF amoxicillin-pot clavulanate 875-125 mg tablet 1 tab PO BID Qty: 14 0RF cetirizine 10 mg tablet 10 mg PO DAILY norgestimate-ethinyl estradiol 0.25-35 mg-mcg tablet 1 tab PO DAILY clonidine HCl 0.1 mg tablet 0.1 mg PO BID Stand Alone Forms: Work/School Release
[2023-06-25 20:27] LABS: Basophils Percent Auto 0.5 % (0-2); Eosinophils Absolute Auto 0.1 X10*3/uL (0.0-0.4); Eosinophils Percent Auto 1.5 % (0-4); Hematocrit 35.1 % (37.0-47.0); Hemoglobin 11.7 g/dl (12.0-16.0); Imm Gran Abs Auto 0.02 X10*3/uL (0.00-0.03); Imm Gran Pct Auto 0.5 % (0.0-0.4); Lymphocytes Absolute Auto 1.6 X10*3/uL (1.2-4.9); Lymphocytes Percent Auto 39.2 % (20-40); MANUAL DIFF FLAG SCAN; Mean Corpuscular HGB Conc 33.3 g/dl (31.0-35.0); Mean Corpuscular Hemoglobin 26.8 pg (27.0-33.0); Mean Corpuscular Volume 80.5 fL (80.0-98.0); Mean Platelet Volume 10.9 fL (9.4-12.3); Monocytes Absolute Auto 0.4 X10*3/uL (0.1-1.2); Monocytes Percent Auto 8.9 % (2-11); Neutrophils Percent Auto 49.4 % (45-73); Red Blood Count 4.36 X10*6/uL (4.20-5.50); Red Cell Distribution Width 13.6 % (11.0-16.0); SCAN SMEAR FLAG 1
[2023-06-25 20:29] LABS: Appearance Urine Clear; Color Urine Dark Yellow; Glucose Urine UA Negative (Negative); Leukocyte Esterase Urine Trace (Negative); Nitrite Urine Positive (Negative); Specific Gravity - Urine 1.015 (1.005-1.025); UMIC TRIGGER UACC YES; Urine Blood Negative (Negative); Urine Ketones Negative (Negative); Urine Protein Negative (Neg-Trace)
[2023-06-25 20:33] LABS: Platelet Count 69 X10*3/uL (160-400)
[2023-06-25 20:40] LABS: Bacteria Urine None Seen (None Seen); Hyaline Casts Urine 0-2 /LPF (0-2); RBC Urine 0-2 /HPF (0-2); Squamous Epithelial Cell Urine 0-2 /HPF (0-2); UACC Culture Trigger YES; WBC Urine 0-5 /HPF (0-5)
[2023-06-25 20:42] LABS: Alanine Aminotransferase 73 U/L (0-31); Alkaline Phosphatase 58 U/L (39-117); Anion Gap 13 (12-20); Aspartate Amino Transferase 63 U/L (5-31); Bilirubin Total 0.3 mg/dL (0.0-1.0); Blood Urea Nitrogen 8 mg/dL (9-16); Carbon Dioxide 25 mmol/L (22-29); Chloride 106 mmol/L (96-108); Estimated Glomerular Filt Rate > 60; Glucose Random 83 mg/dL (60-115); Potassium 3.7 mmol/L (3.3-5.1); Sodium 140 mmol/L (135-145); Total Protein 7.1 g/dL (6.5-8.0)
[2023-06-25 20:46] LABS: SLIDE REVIEW VERIFIED
--- OUTSIDE RECORDS SUMMARY | 2023-06-25 23:04 | XMS_ITS | Continuity of Care Document ---
Author Name Unknown Organization [facility] ter Address [address] [place] [id number]- Care Team Providers Care Peanut Sheller Name Role Phone Quinton CHAO, Heidy Primary Care Physician [place] [facility] [place] - 12[place]13/[address] [address]- [facility] Attending Physician: Heidy Alcantara NP Allergies, Adverse Reactions, Alerts Substance Reaction Severity Status NKA Active Medications MiraLax See Instructions, 255, Gm, 0, 0, 02/25/08 22:37:26, put 1 capful in 2-4 oz of liquid and give dailyuntil stooling consistently, Print ALEJANDRA Number, ADS OPPTHS, Constant Indicator Start Date: 02/25/08 Status: Ordered penicillin V potassium 250 mg/5 ml oral 250, mg, 5, mL, By Mouth, 2 times a day, 120, mL, 0, 0, 02/25/08 22:16:07, Print ALEJANDRA Number, ADS OPPTHS, [id number], Constant Indicator Start Date: 02/25/08 Stop Date: 03/06/08 Status: Ordered
--- OUTSIDE RECORDS SUMMARY | 2023-06-25 23:04 | XMS_ITS | Continuity of Care Document ---
Author Name Unknown Organization [facility] ter Address [address] [place] [id number]- Care Team Providers Care Addressograph Operator Name Role Phone Not on Staff, PCP Primary Care Physician Unavail able [place] [facility] [place] 06/30/[address] [address]- Discharge Disposition: A-D/C Home Attending Physician: Adán Mcknight MD Admitting Physician: Adán Mcknight MD Referring Physician: Not on Staff, Referring MD Allergies, Adverse Reactions, Alerts Substance Reaction Severity [...] 02/25/08 22:16:07, Print ALEJANDRA Number, ADS OPPTHS, [id number], Constant Indicator Start Date: 02/25/08 Stop Date: 03/06/08 Status: Ordered Results Radiology Reports * Exam Date Time Procedure Performing Provider Status 06/30/21 4:58 AM Knee 1 or 2 Views Right Mukul Colby; Auth (Verified) Notes: (Knee 1 or 2 Views Right) Reason For Exam: Pain RESULT: Knee 1 or 2 Views Right Knee 1 or 2 Views Right, 2 views Hx of Present Illness: pt reports a sudden shooting pain in right knee that has caused her to be unable to bear weight or flex her knee. NKI; Reason: Pain; Clinical Question(s): Other: COMPARISON: None. FINDINGS: There is no evidence of acute or healing fracture, dislocation or bone lesion. No arthritic changes. No osteochondral defects or intra-articular loose bodies. No evidence of joint effusion. IMPRESSION: Normal. WSN: [id number] Ordering Physician: Nithin Fierro Dictated By: Tiffanie Hay MD Dictated Date/Time: 06/30/21 7:40 am Reviewed By: Tiffanie Hay MD Signed By: Tiffanie Hay MD Signed Date/Time: 06/30/21 7:40 am Transcribed By: MARCIA Transcribed Date/Time: 06/30/21 7:39 am Vital Signs Most recent to oldest [Reference Range]: 1 2 Oxygen Saturation [94-100 %] 100 % (06/30/21 6:43 AM) 100 % (06/30/21 3:49 AM) Pulse Rate [55-90 bpm] 87 bpm (06/30/21 6:43 AM) 94 bpm *H* (06/30/21 3:49 AM) Blood Pressure [90-138/55-84 mm Hg] 112/ 69mm Hg (06/30/21 6:43 AM) 116/76mm Hg (06/30/21 3:49 AM) Respiratory Rate [16-30 br/min] 16 br/mi n (06/30/21 6:43 AM) 16 br/min (06/30/21 3:49 AM) Temperature [96.8-100.4 DegF] 98.2 DegF (06/30/21 6:43 AM) 98.5 DegF (06/30/21 3:49 AM) Mode of Delivery (Oxygen) Room air (06/30/21 6:43 AM) Room air (06/30/21 3:49 AM) Blood pressure sites Arm, right (06/30/21 6:43 AM) Arm, right (06/30/21 3:49 AM) Temperature Route Oral (06/30/21 6:43 AM) Oral (06/30/21 3:49 AM)
--- OUTSIDE RECORDS SUMMARY | 2023-06-25 23:04 | XMS_ITS | Continuity of Care Document ---
Author Name Unknown Organization [facility] ter Address [address] [place] [id number]- Care Team Providers Care Wire Insulator Name Role Phone Quinton CHAO, Heidy Primary Care Physician [phone] [place] [facility] [place] 09/25/[address] [address]- [facility] Attending Physician: Heidy Alcantara NP Allergies, Adverse [...] 02/25/08 22:16:07, Print ALEJANDRA Number, ADS OPPTHS, [id number], Constant Indicator Start Date: 02/25/08 Stop Date: 03/06/08 Status: Ordered
== END 2023-06-26 01:46 | disposition home or self-care (01) ==
PROVIDERS: Physician Assistant; Emergency Provider Emergency Medicine
DX: R31.9 Hematuria, unspecified (principal); R10.9 Unspecified abdominal pain; Z79.899 Other long term (current) drug therapy
CPT/HCPCS: 36415; 80053; 81001; 85025; 87086; 99282; 99283

== ENCOUNTER 2023-07-07 | Outpatient (REF) | payer MEDICAID, SELFPAY | END 2023-07-07 00:01 | disposition home or self-care (01) | LOC: HO.HHCLNP | PROVIDERS: Visit Provider Internal Medicine | DX: J02.8 Acute pharyngitis due to other specified organisms (principal) | CPT/HCPCS: 0241U; 87070 ==

== ENCOUNTER 2023-07-20 18:31 | Outpatient (REF) | payer MEDICAID, SELFPAY | END 2023-07-20 18:32 | disposition home or self-care (01) | LOC: HO.HHCLNP 18:31 | PROVIDERS: Visit Provider Nurse Practitioner Family | DX: R07.0 Pain in throat (principal) | CPT/HCPCS: 87070 ==

== ENCOUNTER 2023-08-06 15:05 | Outpatient (REF) | payer MEDICAID, SELFPAY ==
--- NOTE | ~2023-08-06 | XR_ITS ---
EXAMINATION: XR KNEE, LEFT CLINICAL INFORMATION: Acute pain COMPARISON: 07/20/2022, 07/20/2022 and 06/16/2019 radiographs of the knees. TECHNIQUE: AP, sunrise and 2 lateral views of the left knee. FINDINGS: Mild medial joint space narrowing. No significant joint effusion. Bone mineralization is normal XR/XR knee LT 3V IMPRESSION: Mild medial joint space narrowing.
== END 2023-08-06 15:06 | disposition home or self-care (01) ==
LOC: HO.XRAY 15:05
PROVIDERS: PCP General Practice; Visit Provider Student in an Organized Health Care Education/Training Program
DX: M25.562 Pain in left knee (principal)
CPT/HCPCS: 73562

== ENCOUNTER 2023-10-23 21:48 | Emergency (ER) | payer OTHER, MEDICAID, SELFPAY ==
--- NOTE | ~2023-10-23 | XR_ITS ---
EXAMINATION: XR KNEE, LEFT CLINICAL INFORMATION: Pain and swelling COMPARISON: 08/06/2023 TECHNIQUE: Four views of the left knee. FINDINGS: No fracture or joint effusion. Alignment is anatomic. Joint spaces are maintained. Previously seen narrowing of the medial compartment not appreciated on this supine study compared to the prior upright exam. No abnormal soft tissue calcification. XR/XR knee LT 2V IMPRESSION: 1. No acute fracture or dislocation. 2. Previously seen narrowing of the medial compartment not appreciated on this supine study compared to the prior upright exam.
[2023-10-23 21:56] VITALS: BP 120/78; PULSE 97; RESP 18; TEMP 36.9; O2SAT 99; BMI 32.6
--- NOTE | 2023-10-23 22:31 | ED.LOWEXIN ---
HPI - Extremity Injury (Lower) General Chief Complaint: Extremity Injury, Lower Stated Complaint: sharp pain in the back of left leg Time Seen by Provider: 10/23/23 22:30 Source: patient Mode of arrival: ambulatory Limitations: no limitations History of Present Illness HPI Narrative: 23-year-old female with a past medical history of patellofemoral pain syndrome presents emergency department, with family, for complaints of left posterior leg pain starting yesterday. She states it feels as if her tendon is stretching and pain is exacerbated with weight-bearing and ambulation. She states pain begins mid posterior thigh and goes down to the foot. She denies any significant swelling in the calf but does report tenderness in the posterior lower leg with palpation. She reports that the injury occurred at work yesterday when she was told to push a heavy object with packages on it. She denies any noted trauma believes her pain is due to overuse or strain due to pushing this object. She reports her leg feels ?numb?. She denies any noted erythema or ecchymosis, shortness breath, chest pain, headache, vision changes. Pertinent positives and negatives discussed in HPI Related Data Home Medications Medication Instructions Recorded Confirmed cetirizine 10 mg tablet 10 mg PO DAILY 07/20/22 clonidine HCl 0.1 mg tablet 0.1 mg PO BID 07/20/22 norgestimate 0.25 mg-ethinyl 1 tab PO DAILY 07/20/22 estradiol 35 mcg tablet Previous Rx's Medication Instructions Recorded ondansetron 4 mg disintegrating 4 mg PO Q6-8H PRN nausea and 09/23/20 tablet vomiting #7 tabs metronidazole 500 mg tablet 500 mg PO BID 7 days #14 tabs 05/18/22 fluconazole 150 mg tablet 150 mg PO Q3D 2 doses #2 tabs 05/19/22 (Diflucan) ibuprofen 600 mg tablet 600 mg PO Q6H PRN fever or pain 04/09/23 #30 tabs amoxicillin 875 mg-potassium 1 tab PO BID #14 tabs 05/16/23 clavulanate 125 mg tablet Allergies Allergy/AdvReac Type Severity Reaction Status Date / Time grapefruit [GRAPEFRUIT] Allergy Unknown ITCHY MOUTH Verified 07/27/23 10:54 orange [ORANGE] Allergy Unknown ITCHY MOUTH Verified 07/27/23 10:54 nitrofurantoin Allergy Vomiting Verified 07/27/23 10:54 [From Macrobid] pineapple Allergy Itching Verified 07/27/23 10:54 Review of Systems Review of Systems: Yes all other systems are reviewed and are negative PMFSH Past Medical History Onset Date is defined in the Problem List Problems that require an onset date and time if occurred within 24 hrs of arrival to the ED Aortic Dissection and Rupture; Neurologic impairment; Cardiopulmonary Arrest; Endotracheal Intubation; Insertion or Replacement of Mechanical Circulatory Assist Device Medical History (Updated 10/23/23 @ 23:39 by Ariella Casas NP) History of posttraumatic stress disorder (PTSD) Social phobia Depressed Insomnia No known health problems Social History Social History (System 07/27/23 @ 10:54 by Kelsea Garcia) Alcohol intake: current Alcohol intake frequency: holidays/special occasions only Smoked in Last 30 Days: No Use of substances other than those prescribed or required for medical reasons: No Substance Use Type: Marijuana Advance Directives: No Advance Directives Information Provided: No Patient : No Current occupation: [employer] Physical Exam Vital Signs: Vital Signs: Last Vital Signs Temp 98.5 F 10/23/23 21:56 Pulse 97 10/23/23 21:56 Resp 18 10/23/23 21:56 BP 120/78 10/23/23 21:56 Pulse Ox 99 10/23/23 21:56 O2 Del Method Room Air 10/23/23 21:56 BMI result Body Mass Index 32.6 Nursing notes and vital signs reviewed. GENERAL APPEARANCE: A&0 x 4, generally well appearing, no acute distress HENMT: Normal to inspection, atraumatic, face symmetrical. Normal external ears, nose, and oropharynx clear. EYE: PERRLA, EOM intact, structures appear normal NECK: Supple without stiffness or restricted ROM. HEART: Normal rate and regular rhythm, normal S1/S2, no M/R/G LUNGS: LS CTA, moving air well. Able to speak in complete sentences. No crackles, wheezes, or rhonchi auscultated BACK: No CVAT, no obvious deformity EXTREMITIES: Discomfort in the LLE with active range of motion. No ecchymosis or erythema noted. Mild swelling noted on left lateral and posterior knee. Normal capillary refill. NEUROLOGICAL: Alert and oriented, moving all 4 extremities with equal strength. CN not formally tested but appearing grossly intact. Observed to ambulate with normal gait. Cognition normal SKIN: Warm and dry without any lesions, rash, or visible sores Course Course Course Narrative: Ultrasound unavailable at this time to further rule out DVT. D-dimer ordered Medications Administered Discontinued Medications Generic Name Dose Route Start Last Admin Trade Name Jill PRN Reason Stop Dose Admin Ibuprofen 600 mg 10/23/23 22:44 10/23/23 23:33 Ibuprofen 600 Mg Tablet PO 10/23/23 22:45 600 mg ONCE ONE Administration Medical Decision Making Medical Decision Making [facility] Narrative: Old records reviewed and patient assessed in the emergency department with no signs of acute distress or toxicity. I have independently interpreted the left knee x-ray is negative for acute fractures, dislocation, or joint effusions. Blood work unremarkable with no signs of infection, kidney dysfunction, electrolyte imbalance, or inflammation secondary to thrombosis. Patient's symptoms are consistent with acute left knee strain. Patient educated to rest, ice, compress, and elevate knee for comfort. Patient is safe for discharge at this time with plan for [id number] Tylenol and/or NSAID such as ibuprofen or naproxen for fever/discomfort with dosing as per packaging. HPI, PE, diagnostics, and plan discussed with patient and family with no unanswered questions at this time. Strict return precautions given to return to the emergency department with new, worsening, or concerning emergent symptoms. Recommended to follow-up with there primary care provider in 24-48 hours for further treatment and management. Differential Diagnosis Differential Diagnoses: The differential diagnosis associated with the presentation includes But not limited to strain, sprain, fracture, dislocation, joint effusion, septic joint, bursitis, Holland's cyst, DVT Lab Data 10/23/23 23:26 10/23/23 23:26 Labs: Lab Results 10/23/23 Range/Units 23:26 WBC 5.8 (4.8-10.8) X10*3/uL RBC 4.85 (4.20-5.50) X10*6/uL Hgb 13.1 (12.0-16.0) g/dl Hct 38.5 (37.0-47.0) % MCV 79.4 L (80.0-98.0) fL MCH 27.0 (27.0-33.0) pg MCHC 34.0 (31.0-35.0) g/dl RDW 12.8 (11.0-16.0) % Plt Count 192 D (160-400) X10*3/uL MPV 9.0 L (9.4-12.3) fL Immature Gran % (Auto) 0.2 (0.0-0.4) % Neut % (Auto) 43.5 L (45-73) % Lymph % (Auto) 45.7 H (20-40) % [place] % (Auto) 8.6 (2-11) % Eos % (Auto) 1.5 (0-4) % Baso % (Auto) 0.5 (0-2) % Lymph # (Auto) 2.7 (1.2-4.9) X10*3/uL [place] # (Auto) 0.5 (0.1-1.2) X10*3/uL Eos # (Auto) 0.1 (0.0-0.4) X10*3/uL Baso # (Auto) 0.0 (0.0-0.2) X10*3/uL Abs Immat Gran (auto) 0.01 (0.00-0.03) X10*3/uL Absolute Neuts (auto) 2.5 (2.0-8.3) x10*3/uL Absolute Nucleated RBC 0.000 (0.0-0.012) X10*3/uL Nucleated RBC % (auto) 0.0 (0.0-0.2) /100WBC D-Dimer High Sensitivty 387 NG/ML Sodium 142 (135-145) mmol/L Potassium 4.0 (3.3-5.1) mmol/L Chloride 105 (96-108) mmol/L Carbon Dioxide 28 (22-29) mmol/L Anion Gap 13 (12-20) BUN 8 L (9-16) mg/dL Creatinine 0.74 (0.5-1.4) mg/dL Estim Creat Clear Calc 112.9 Estimated GFR > 60 Random Glucose 81 (60-115) mg/dL Calcium 9.8 D (8.4-10.2) mg/dL Discharge Plan Discharge Clinical Impression: Muscle strain of left knee Patient Disposition: Home, Self-Care Instructions: Muscle Strain (ED), Knee Pain (ED), R.I.C.E. Treatment (ED) Additional Instructions: Your seen in the emergency department for concerns of left knee pain. An x-ray was done showing no evidence of fracture or dislocation and your symptoms are consistent with a muscle strain. Your blood work was unremarkable with no signs of infection, organ dysfunction, electrolyte imbalance, or inflammation related to blood clots. You are safe for discharge at this time with plan for management of fever or discomfort with [id number] Tylenol and/or NSAID such as ibuprofen or naproxen with dosing as per packaging. Please return to the emergency department with new, worsening, or concerning emergent symptoms. Recommended to follow-up with your primary care provider in 24-48 hours for further treatment and management. Thank you for choosing [facility]. Prescriptions: No Action ondansetron 4 mg tablet,disintegrating 4 mg PO Q6-8H PRN (Reason: nausea and vomiting) Qty: 7 0RF metronidazole 500 mg tablet 500 mg PO BID 7 Days Qty: 14 0RF fluconazole [Diflucan] 150 mg tablet 150 mg PO Q3D Qty: 2 0RF Rx Instructions: may repeat second dose 72 hrs after first dose if symptoms persist ibuprofen 600 mg tablet 600 mg PO Q6H PRN (Reason: fever or pain) Qty: 30 0RF amoxicillin-pot clavulanate 875-125 mg tablet 1 tab PO BID Qty: 14 0RF cetirizine 10 mg tablet 10 mg PO DAILY norgestimate-ethinyl estradiol 0.25-35 mg-mcg tablet 1 tab PO DAILY clonidine HCl 0.1 mg tablet 0.1 mg PO BID Referrals: [facility]geons [Provider Group] [facility] Pain Management [Provider Group] Natividad Allen MD [Primary Care Provider] - Stand Alone Forms: Work/School Release Print Language: Hungarian
[2023-10-23 23:32] LABS: Basophils Percent Auto 0.5 % (0-2); Eosinophils Absolute Auto 0.1 X10*3/uL (0.0-0.4); Eosinophils Percent Auto 1.5 % (0-4); Hematocrit 38.5 % (37.0-47.0); Hemoglobin 13.1 g/dl (12.0-16.0); Imm Gran Abs Auto 0.01 X10*3/uL (0.00-0.03); Imm Gran Pct Auto 0.2 % (0.0-0.4); Lymphocytes Absolute Auto 2.7 X10*3/uL (1.2-4.9); Lymphocytes Percent Auto 45.7 % (20-40); MANUAL DIFF FLAG NO; Mean Corpuscular Volume 79.4 fL (80.0-98.0); Monocytes Absolute Auto 0.5 X10*3/uL (0.1-1.2); Monocytes Percent Auto 8.6 % (2-11); Neutrophils Absolute Auto 2.5 x10*3/uL (2.0-8.3); Neutrophils Percent Auto 43.5 % (45-73); Platelet Count 192 X10*3/uL (160-400); Red Blood Count 4.85 X10*6/uL (4.20-5.50); Red Cell Distribution Width 12.8 % (11.0-16.0); White Blood Count 5.8 X10*3/uL (4.8-10.8)
[2023-10-23] MEDS: Ibuprofen 600 MG TABLET PO (23:33)
[2023-10-23 23:41] LABS: D Dimer High Sensitivity 387 NG/ML
[2023-10-23 23:45] LABS: Anion Gap 13 (12-20); Blood Urea Nitrogen 8 mg/dL (9-16); Calcium 9.8 mg/dL (8.4-10.2); Carbon Dioxide 28 mmol/L (22-29); Chloride 105 mmol/L (96-108); Creatinine Clr Calc Pharmacy 112.9; Estimated Glomerular Filt Rate > 60; Glucose Random 81 mg/dL (60-115); Sodium 142 mmol/L (135-145)
[2023-10-24 00:23] VITALS: BP 115/80; PULSE 80; RESP 12; TEMP 36.8; O2SAT 100
--- NOTE | 2023-10-24 00:24 | PC.NURSE ---
Ziggy wrap applied to left knee per provider verbal order. Pt tolerated well.
== END 2023-10-24 00:25 | disposition home or self-care (01) ==
PROVIDERS: Nurse Practitioner Family; Emergency Provider Emergency Medicine; PCP General Practice
DX: S39.012A Strain of muscle, fascia and tendon of lower back, initial encounter (principal); X50.9XXA Other and unspecified overexertion or strenuous movements or postures, initial encounter; M79.662 Pain in left lower leg; Y93.89 Activity, other specified; Y92.59 Other trade areas as the place of occurrence of the external cause; Y99.0 Civilian activity done for income or pay
CPT/HCPCS: 36415; 73560; 80048; 85025; 85379; 99283; 99284

== ENCOUNTER 2023-11-12 11:09 | Outpatient (REF) | payer OTHER, MEDICAID, SELFPAY ==
[2023-11-12 14:00] LABS: Alanine Aminotransferase 12 U/L (0-31); Albumin Level 4.4 g/dL (3.5-5.0); Alkaline Phosphatase 53 U/L (39-117); Anion Gap 12 (12-20); Aspartate Amino Transferase 12 U/L (5-31); Bilirubin Total 0.4 mg/dL (0.0-1.0); Blood Urea Nitrogen 12 mg/dL (9-16); Calcium 9.6 mg/dL (8.4-10.2); Carbon Dioxide 29 mmol/L (22-29); Chloride 104 mmol/L (96-108); Estimated Glomerular Filt Rate > 60; Glucose Random 73 mg/dL (60-115); Potassium 3.9 mmol/L (3.3-5.1); Sodium 141 mmol/L (135-145); Total Protein 7.1 g/dL (6.5-8.0)
[2023-11-12 14:20] LABS: TSH reflex Free T4 1.25 uIU/mL (0.32-4.0)
[2023-11-12 15:02] LABS: Estimated Average Glucose 94 mg/dL; Hemoglobin A1c % 4.9 % (<6.0)
== END 2023-11-12 11:10 | disposition home or self-care (01) ==
LOC: HO.HHCL 11:09
PROVIDERS: Visit Provider General Practice
DX: E66.3 Overweight (principal)
CPT/HCPCS: 36415; 80053; 83036; 84443

== ENCOUNTER 2023-12-26 18:54 | Emergency (ER) | payer OTHER, SELFPAY ==
--- NOTE | ~2023-12-26 | XR_ITS ---
EXAMINATION: XR SHOULDER, LEFT CLINICAL INFORMATION: Acute pain COMPARISON: None available. TECHNIQUE: AP external rotation, Grashey, scapular Y, and axillary views of the left shoulder. FINDINGS: The bones and soft tissues are normal. No fracture. Glenohumeral and acromioclavicular alignment is anatomic with normal joint space. No abnormal soft tissue calcifications. XR/XR shoulder LT min 2V IMPRESSION: Normal left shoulder.
[2023-12-26 19:19] VITALS: BP 111/67; PULSE 97; RESP 18; TEMP 36.8; O2SAT 96; BMI 34.2
--- NOTE | 2023-12-26 19:48 | ED_ITS ---
HPI - Extremity Problem General Chief complaint: Extremity Injury, Upper Stated complaint: hurt left should around 4:30 @work Time Seen by Provider: 12/26/23 19:27 Source: patient Mode of arrival: ambulatory Limitations: no limitations History of Present Illness HPI Narrative: 23 year old female with pmhx significant for depression, PTSD, and patella- femoral syndrome presents to the ED today for evaluation of left shoulder pain x3.5 hours. 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 She continued moving boxes to finish her tasks and then once she began to rest, she felt the pain worsening. 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 Denies numbness/tingling/weakness of the extremity. Denies blunt trauma to the shoulder. Denies any other injury. Related Data Home Medications Medication Instructions Recorded Confirmed cetirizine 10 mg tablet 10 mg PO DAILY 07/20/22 clonidine HCl 0.1 mg tablet 0.1 mg PO BID 07/20/22 norgestimate 0.25 mg-ethinyl 1 tab PO DAILY 07/20/22 estradiol 35 mcg tablet Previous Rx's Medication Instructions Recorded ondansetron 4 mg disintegrating 4 mg PO Q6-8H PRN nausea and 09/23/20 tablet vomiting #7 tabs metronidazole 500 mg tablet 500 mg PO BID 7 days #14 tabs 05/18/22 fluconazole 150 mg tablet 150 mg PO Q3D 2 doses #2 tabs 05/19/22 (Diflucan) ibuprofen 600 mg tablet 600 mg PO Q6H PRN fever or pain 04/09/23 #30 tabs amoxicillin 875 mg-potassium 1 tab PO BID #14 tabs 05/16/23 clavulanate 125 mg tablet lidocaine 5 % topical patch 1 patch topical DAILY #15 ea 12/26/23 (Lidoderm) naproxen 500 mg tablet 500 mg PO Q8-12H PRN pain (scale 12/26/23 score 4-6) #10 tabs Allergies Allergy/AdvReac Type Severity Reaction Status Date / Time grapefruit [GRAPEFRUIT] Allergy Unknown ITCHY MOUTH Verified 12/26/23 19:22 orange [ORANGE] Allergy Unknown ITCHY MOUTH Verified 12/26/23 19:22 nitrofurantoin Allergy Vomiting Verified 12/26/23 19:22 [From Macrobid] pineapple Allergy Itching Verified 12/26/23 19:22 Review of Systems Review of Systems: Constitutional: No fever, chills, fatigue, night sweats, weight changes ENT/Mouth: No ear pain, hearing loss, nasal congestion, sinus pain, rhinorrhea, sore throat Eyes: No eye pain, swelling, redness, vision changes, discharge Cardio: No chest pain, palpitations, PHELAN, orthopnea, peripheral edema Pulm: No SOB, cough, sputum, wheezing, dyspnea, hemoptysis GI: No nausea, vomiting, hematemesis, abdominal pain, diarrhea, constipation, hematochezia, melena : No irregular bleeding, dysuria, frequency, urgency, hesitancy, hematuria, flank pain, urinary flow changes, urinary incontinence or retention MSK: No back pain, neck pain, joint pain, myalgias, +left shoulder pain Skin: No lesions, rashes Neuro: No weakness, numbness, paresthesias, LOC, dizziness, headache Psych: No anxiety/panic, depression, SI/HI, AH/VH All other systems reviewed and are negative. [facility] Past Medical History Attestation statement: The following information was validated with the patient. Source: old records reviewed and nursing notes reviewed Medical History History of posttraumatic stress disorder (PTSD) Social phobia Depressed Insomnia No known health problems Social History Social History Alcohol intake: current Alcohol intake frequency: holidays/special occasions only Substance Use Type: Marijuana Advance Directives: No Advance Directives Information Provided: No Current occupation: [employer] Physical Exam Vital Signs: Vital Signs: Last Vital Signs Temp 98.2 F 12/26/23 21:43 Pulse 97 12/26/23 21:43 Resp 18 12/26/23 21:43 BP 111/67 12/26/23 21:43 Pulse Ox 96 12/26/23 21:43 O2 Del Method Room Air 12/26/23 21:43 BMI result Body Mass Index 34.2 vital signs stable Const: General: cooperative, healthy appearing, comfortable and no acute distress Nutritional Appearance: average body habitus Orientation/consciousness: patient oriented x3 Limitations: no limitations HEENT: Head: Yes normal to inspection, Yes No palpable skull fracture present, Yes normocephalic and Yes atraumatic Eyes: General: appearance normal, both eyes and all related structures Conjunctivae: conjunctivae normal Sclerae: sclerae normal Pupils: Equal, round and reactive pupils present EOM: EOMs intact bilaterally Neck: Neck: Yes normal visual inspection, Yes full ROM and Yes no lymphadenopathy Resp: Effort & Inspection: normal respiratory effort and able to speak in complete sentences Auscultation: clear to auscultation bilaterally Cardio: Rate: regular rate Rhythm: regular rhythm Back/Spine/Pelvis: Other: No midline spinous tenderness or step off deformity. No paraspinal muscle tenderness. Skin: General skin exam: no rashes or lesions noted Neuro: General: patient oriented x3, gait normal and no focal motor deficits Cranial nerves: Yes Equal, round and reactive pupils present Gait exam (Neuro): Normal gait present Motor exam (neuro): 5/5 motor strength present throughout Pupils: Normal pupillary reactivity/response: bilateral Extrem: Other: + no overlying deformity or skin changes to left shoulder. full ROM intact to le ft shoulder. slight discomfort to anterior left shoulder with abduction. strength 5/5 intact against resistance. TTP over the anterior AC joint without palpable deformity. 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 sensation intact. 2+ radial and ulnar pulses. General: Yes normal to inspection, Yes full ROM and Yes capillary refill normal Course Course Course Narrative: 2101-- x-rays do not demonstrate acute fracture or dislocation. i suspect pain is muscular in etiology given mechanism of action. will send patient home with naproxen and lidocaine patches. advised to follow up with PCP if pain persists. supplied her with shoulder sling. She has remained stable throughout ED visit today. Discussed worrisome signs and symptoms and when to return to the ED. All questions answered at this time. Patient is agreeable with disposition and stable for discharge. Medications Administered Discontinued Medications Generic Name Dose Route Start Last Admin Trade Name Freq PRN Reason Stop Dose Admin Ketorolac Tromethamine 30 mg 12/26/23 19:53 12/26/23 20:16 Ketorolac Tromethamine 30 Mg/Ml Vial IM 12/26/23 19:54 30 mg ONCE ONE Administration Lidocaine 1 patch 12/26/23 19:53 12/26/23 20:14 Lidocaine 4 % Patch Adh..Patch TRANSDERMA 12/26/23 19:54 1 patch ONCE ONE Administration Protocol Medical Decision Making Medical Decision Making MDM Narrative: 23 year old female with pmhx significant for depression, PTSD, and patella- femoral syndrome presents to the ED today for evaluation of left shoulder pain x3.5 hours. Vital signs stable. She is nontoxic appearing and in NAD. Sitting comfortably on the exam bed. On exam, no overlying deformity or skin changes to left shoulder. full ROM intact to left shoulder. slight discomfort to anterior left shoulder with abduction. full ROM intact to left elbow, left wrist. Strength 5/5 intact against resistance. TTP over the anterior AC joint without palpable deformity. 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 sensation intact. 2+ radial and ulnar pulses. Ambulating with steady gait. Differential diagnosis includes muscular sprain/ strain, contusion, fracture, dislocation, cervical radiculopathy, arthritis. Unlikely NV compromise, compartment syndrome, threat to limb. Plan for imaging, pain control, and re-evaluation. Differential Diagnosis Differential Diagnoses: The differential diagnosis associated with the presentation includes as above. Admission/Observation Not indicated Independent Interpretation I performed an independent interpretation of an: Plain X-Ray Interpretation: I have personally reviewed xray of left shoulder and agree with radiologist's interpretation. Radiology Impression Discussion of test interpretation with radiology: I have reviewed the radiologist's reading. Radiologist Impression: EXAMINATION: XR SHOULDER, LEFT CLINICAL INFORMATION: Acute pain COMPARISON: None available. TECHNIQUE: AP external rotation, Grashey, scapular Y, and axillary views of the left shoulder. FINDINGS: The bones and soft tissues are normal. No fracture. Glenohumeral and acromioclavicular alignment is anatomic with normal joint space. No abnormal soft tissue calcifications. XR/XR shoulder LT min 2V IMPRESSION: Normal left shoulder. External Record Review External record reviewed: Inpatient record, Office record, Outpatient record, Prior outpatient labs, Prior outpatient radiology, Primary care record and Outside ED record Prescription Management I considered prescription management with: Other (naproxen, lidocaine patches) Social Determinants Patient?s care significantly limited by Social Determinants of Health including: Other Social Determinant of Health Procedures Orthopedic Splinting/Casting Injury #1: Side: left Upper Extremity Injury Location: shoulder Upper Extremity Immobilizer: sling/shoulder immobilizer Critical Care Time Critical Care Time Critical Care Time: Yes Total Critical Care Time: 37 Attestation: Critical care time in the amount of 37 minutes has been provided to the patient in terms of direct patient care, frequent reevaluation, review and interpretation of medical data and results, and management of potentially life- threatening conditions. This is all outside of any medical procedures. Discharge Plan Discharge Clinical Impression: Left shoulder strain Patient Disposition: Home, Self-Care Instructions: Muscle Strain (ED), How to Use a Sling (ED) Additional Instructions: Your imaging studies today did not show acute fracture. or dislocation. Your pain is likely musculoskeletal. Avoid lifting. Use ice several times per day for 20 minutes at a time for the next 48 hours and then change to heat. Naproxen is an anti-inflammatory / pain medication. Take with food. Do not take this with Ibuprofen. Lidoderm patches are numbing patches. Apply to painful areas. In addition you may take Tylenol at home. Follow up with your primary care provider as needed If your pain worsens, if you develop new numbness, tingling, weakness, loss of bowel or bladder function call 911 or return to the ER immediately for evaluation. As this was a work-related injury, you have been provided with contact information for [facility]: [phone] Prescriptions: New lidocaine [Lidoderm] 5 % adhesive patch,medicated 1 patch topical DAILY Qty: 15 0RF Rx Instructions: leave on most painful area for up to 12 hrs naproxen 500 mg tablet 500 mg PO Q8-12H PRN (Reason: pain (scale score 4-6)) Qty: 10 0RF No Action ondansetron 4 mg tablet,disintegrating 4 mg PO Q6-8H PRN (Reason: nausea and vomiting) Qty: 7 0RF metronidazole 500 mg tablet 500 mg PO BID 7 Days Qty: 14 0RF fluconazole [Diflucan] 150 mg tablet 150 mg PO Q3D Qty: 2 0RF Rx Instructions: may repeat second dose 72 hrs after first dose if symptoms persist ibuprofen 600 mg tablet 600 mg PO Q6H PRN (Reason: fever or pain) Qty: 30 0RF amoxicillin-pot clavulanate 875-125 mg tablet 1 tab PO BID Qty: 14 0RF cetirizine 10 mg tablet 10 mg PO DAILY norgestimate-ethinyl estradiol 0.25-35 mg-mcg tablet 1 tab PO DAILY clonidine HCl 0.1 mg tablet 0.1 mg PO BID Referrals: [facility] [Outside] Stand Alone Forms: Work/School Release Interventions: ED Discharge Assessment Last Done: 12/26/23 21:43 Discharge Date/Time: 12/26/23 21:44
[2023-12-26] MEDS: Lidocaine 4 % Patch ADH..PATCH 1 PATCH TRANSDERMA (20:14)
[2023-12-26] MEDS: Ketorolac Tromethamine 30 MG/ML VIAL IM (20:16)
[2023-12-26 21:43] VITALS: BP 111/67; PULSE 97; RESP 18; TEMP 36.8; O2SAT 96
== END 2023-12-26 21:44 | disposition home or self-care (01) ==
PROVIDERS: Emergency Provider Emergency Medicine; PCP General Practice
DX: S46.912A Strain of unspecified muscle, fascia and tendon at shoulder and upper arm level, left arm, initial encounter (principal); X50.0XXA Overexertion from strenuous movement or load, initial encounter; Y93.9 Activity, unspecified; Y92.89 Other specified places as the place of occurrence of the external cause; Y99.0 Civilian activity done for income or pay
CPT/HCPCS: 73030; 96372; 99283; 99284; J1885

== ENCOUNTER 2024-02-11 21:21 | Emergency (ER) | payer MEDICAID, SELFPAY ==
[2024-02-11 21:44] VITALS: BP 112/67; PULSE 90; RESP 16; TEMP 36.7; O2SAT 98; BMI 34.2
[2024-02-11 21:57] LABS: MANUAL DIFF FLAG NO
[2024-02-11 21:59] LABS: Basophils Absolute Auto 0.1 X10*3/uL (0.0-0.2); Basophils Percent Auto 0.6 % (0-2); Eosinophils Absolute Auto 0.2 X10*3/uL (0.0-0.4); Eosinophils Percent Auto 1.9 % (0-4); Hematocrit 37.9 % (37.0-47.0); Hemoglobin 13.1 g/dl (12.0-16.0); Imm Gran Abs Auto 0.02 X10*3/uL (0.00-0.03); Imm Gran Pct Auto 0.2 % (0.0-0.4); Lymphocytes Absolute Auto 3.2 X10*3/uL (1.2-4.9); Lymphocytes Percent Auto 29.6 % (20-40); Mean Corpuscular HGB Conc 34.6 g/dl (31.0-35.0); Mean Corpuscular Hemoglobin 28.4 pg (27.0-33.0); Mean Corpuscular Volume 82.2 fL (80.0-98.0); Mean Platelet Volume 9.6 fL (9.4-12.3); Monocytes Absolute Auto 0.6 X10*3/uL (0.1-1.2); Monocytes Percent Auto 5.1 % (2-11); Neutrophils Absolute Auto 6.7 x10*3/uL (2.0-8.3); Neutrophils Percent Auto 62.6 % (45-73); Platelet Count 189 X10*3/uL (160-400); Red Blood Count 4.61 X10*6/uL (4.20-5.50); Red Cell Distribution Width 12.3 % (11.0-16.0); White Blood Count 10.7 X10*3/uL (4.8-10.8)
[2024-02-11 22:00] LABS: Appearance Urine Clear; Color Urine Yellow; Glucose Urine UA Negative (Negative); Leukocyte Esterase Urine Negative (Negative); Nitrite Urine Negative (Negative); UPreg QC Valid YES; Urine Blood Negative (Negative); Urine Ketones Negative (Negative); Urine Protein Negative (Neg-Trace)
[2024-02-11 22:01] LABS: Urine Pregnancy NEGATIVE (NEGATIVE)
[2024-02-11 22:18] LABS: Alanine Aminotransferase 15 U/L (0-31); Albumin Level 4.4 g/dL (3.5-5.0); Alkaline Phosphatase 54 U/L (39-117); Anion Gap 14 (12-20); Aspartate Amino Transferase 13 U/L (5-31); Bilirubin Total 0.3 mg/dL (0.0-1.0); Blood Urea Nitrogen 13 mg/dL (9-16); Calcium 9.7 mg/dL (8.4-10.2); Carbon Dioxide 27 mmol/L (22-29); Chloride 105 mmol/L (96-108); Creatinine Clr Calc Pharmacy 98.4; Estimated Glomerular Filt Rate > 60; Glucose Random 92 mg/dL (60-115); Potassium 3.8 mmol/L (3.3-5.1); Sodium 142 mmol/L (135-145); Total Protein 7.2 g/dL (6.5-8.0)
[2024-02-11 22:27] VITALS: BP 113/76; PULSE 77; RESP 16; TEMP 36.4; O2SAT 100
--- NOTE | 2024-02-11 22:27 | ED_ITS ---
HPI - Female Genitourinary General Chief complaint: Urogenital-Female Stated complaint: Flank pain Time Seen by Provider: 02/11/24 22:22 Source: patient Mode of arrival: ambulatory Limitations: no limitations History of Present Illness HPI Narrative: Patient with left lower back pain since yesterday does not remember any injury denies any urinary complaints had history of UTI with similar pain in the past in his sharp in character radiates to the left leg gets worse on ambulation no hematuria no history of kidney stone no nausea no vomiting Related Data Home Medications ?Medication ?Instructions ?Recorded ?Confirmed cetirizine 10 mg tablet 10 mg PO DAILY 07/20/22 clonidine HCl 0.1 mg tablet 0.1 mg PO BID 07/20/22 norgestimate 0.25 mg-ethinyl 1 tab PO DAILY 07/20/22 estradiol 35 mcg tablet Previous Rx's ?Medication ?Instructions ?Recorded ondansetron 4 mg disintegrating 4 mg PO Q6-8H PRN nausea and 09/23/20 tablet vomiting #7 tabs metronidazole 500 mg tablet 500 mg PO BID 7 days #14 tabs 05/18/22 fluconazole 150 mg tablet 150 mg PO Q3D 2 doses #2 tabs 05/19/22 (Diflucan) ibuprofen 600 mg tablet 600 mg PO Q6H PRN fever or pain 04/09/23 #30 tabs amoxicillin 875 mg-potassium 1 tab PO BID #14 tabs 05/16/23 clavulanate 125 mg tablet lidocaine 5 % topical patch 1 patch topical DAILY #15 ea 12/26/23 (Lidoderm) naproxen 500 mg tablet 500 mg PO Q8-12H PRN pain (scale 12/26/23 score 4-6) #10 tabs cyclobenzaprine 10 mg tablet 10 mg PO Q8H #20 tabs 02/11/24 ibuprofen 600 mg tablet 600 mg PO Q6H PRN fever or pain 02/11/24 #30 tabs Allergies Allergy/AdvReac Type Severity Reaction Status Date / Time grapefruit [GRAPEFRUIT] Allergy Unknown ITCHY MOUTH Verified 02/11/24 21:45 orange [ORANGE] Allergy Unknown ITCHY MOUTH Verified 02/11/24 21:45 nitrofurantoin Allergy Vomiting Verified 02/11/24 21:45 [From Macrobid] pineapple Allergy Itching Verified 02/11/24 21:45 Review of Systems 2 Review of Systems: Yes all other systems are reviewed and are negative [facility] Past Medical History Medical History History of posttraumatic stress disorder (PTSD) Social phobia Depressed Insomnia No known health problems Social History Social History Alcohol intake: current Alcohol intake frequency: a few times a month Smoked in Last 30 Days: Yes Use of substances other than those prescribed or required for medical reasons: Yes Substance Use Type: Marijuana Substance Use Frequency: Occasionally Last Used Substance: Days (ago) Advance Directives: No Advance Directives Information Provided: No Current occupation: [employer] Physical Exam 2 Vital Signs: Vital Signs: Last Vital Signs Temp 97.6 F 02/11/24 22:27 Pulse 77 02/11/24 22:27 Resp 16 02/11/24 22:27 BP 113/76 02/11/24 22:27 Pulse Ox 100 02/11/24 22:27 O2 Del Method Room Air 02/11/24 22:27 BMI result Body Mass Index 34.2 Appearance: Alert. Oriented X3. No acute distress. ENT: Pharynx normal. Oral Mucosa moist Neck: Normal inspection. Neck supple. CVS: Normal heart rate and rhythm. Pulses normal. Respiratory: No respiratory distress. Equal air entry bilateral, no wheezing/rales/rhonchi Abdomen: Soft and nontender. Bowel sounds are present, no mass palpable, no CVA tenderness back: No midline tenderness tenderness in the left paraspinal area no midline tenderness, SLR negative bilaterally Skin: Skin warm and dry. Normal skin color. Normal skin turgor. Extremities: No lower extremity edema. No calf tenderness Neuro: Oriented X 3. No motor deficit. No sensory deficit. Medical Decision Making Medical Decision Making MDM Narrative: Patient with left musculoskeletal pain lower back workup negative for any kidney infection or stone Differential Diagnosis Differential Diagnoses: The differential diagnosis associated with the presentation includes UTI/pyelonephritis/kidney stone/musculoskeletal pain Lab Data [facility] Lab Attestation statement: I reviewed the patient's lab results. 02/11/24 21:49 02/11/24 21:49 Labs: Lab Results 02/11/24 Range/Units 21:49 WBC 10.7 (4.8-10.8) X10*3/uL RBC 4.61 (4.20-5.50) X10*6/uL Hgb 13.1 (12.0-16.0) g/dl Hct 37.9 (37.0-47.0) % MCV 82.2 (80.0-98.0) fL MCH 28.4 (27.0-33.0) pg MCHC 34.6 (31.0-35.0) g/dl RDW 12.3 (11.0-16.0) % Plt Count 189 (160-400) X10*3/uL MPV 9.6 (9.4-12.3) fL Immature Gran % (Auto) 0.2 (0.0-0.4) % Neut % (Auto) 62.6 (45-73) % Lymph % (Auto) 29.6 (20-40) % [place] % (Auto) 5.1 (2-11) % Eos % (Auto) 1.9 (0-4) % Baso % (Auto) 0.6 (0-2) % Lymph # (Auto) 3.2 (1.2-4.9) X10*3/uL [place] # (Auto) 0.6 (0.1-1.2) X10*3/uL Eos # (Auto) 0.2 (0.0-0.4) X10*3/uL Baso # (Auto) 0.1 (0.0-0.2) X10*3/uL Abs Immat Gran (auto) 0.02 (0.00-0.03) X10*3/uL Absolute Neuts (auto) 6.7 (2.0-8.3) x10*3/uL Absolute Nucleated RBC 0.000 (0.0-0.012) X10*3/uL Nucleated RBC % (auto) 0.0 (0.0-0.2) /100WBC Sodium 142 (135-145) mmol/L Potassium 3.8 (3.3-5.1) mmol/L Chloride 105 (96-108) mmol/L Carbon Dioxide 27 (22-29) mmol/L Anion Gap 14 (12-20) BUN 13 (9-16) mg/dL Creatinine 0.87 (0.5-1.4) mg/dL Estim Creat Clear Calc 98.4 Estimated GFR > 60 Random Glucose 92 (60-115) mg/dL Calcium 9.7 (8.4-10.2) mg/dL Total Bilirubin 0.3 (0.0-1.0) mg/dL AST 13 (5-31) U/L ALT 15 (0-31) U/L Alkaline Phosphatase 54 (39-117) U/L Total Protein 7.2 (6.5-8.0) g/dL Albumin 4.4 (3.5-5.0) g/dL Urine Color Yellow Urine Appearance Clear Urine pH 6.0 (5.0-9.0) Ur Specific [place] 1.020 (1.005-1.025) Urine Protein Negative (Neg-Trace) mg/dL Urine Glucose (UA) Negative (Negative) mg/dL Urine Ketones Negative (Negative) mg/dL Urine Blood Negative (Negative) Urine Nitrite Negative (Negative) Ur Leukocyte Esterase Negative (Negative) Urine Test NEGATIVE (NEGATIVE) Discharge Plan Discharge Clinical Impression: Acute lumbar myofascial strain Patient Disposition: Home, Self-Care Instructions: Low Back Strain (ED) Additional Instructions: Apply ice Rest Ibuprofen for pain Flexeril for muscle relaxation Follow with PCP as needed Prescriptions: New cyclobenzaprine 10 mg tablet 10 mg PO Q8H Qty: 20 0RF ibuprofen 600 mg tablet 600 mg PO Q6H PRN (Reason: fever or pain) Qty: 30 0RF No Action ondansetron 4 mg tablet,disintegrating 4 mg PO Q6-8H PRN (Reason: nausea and vomiting) Qty: 7 0RF metronidazole 500 mg tablet 500 mg PO BID 7 Days Qty: 14 0RF fluconazole [Diflucan] 150 mg tablet 150 mg PO Q3D Qty: 2 0RF Rx Instructions: may repeat second dose 72 hrs after first dose if symptoms persist lidocaine [Lidoderm] 5 % adhesive patch,medicated 1 patch topical DAILY Qty: 15 0RF Rx Instructions: leave on most painful area for up to 12 hrs naproxen 500 mg tablet 500 mg PO Q8-12H PRN (Reason: pain (scale score 4-6)) Qty: 10 0RF ibuprofen 600 mg tablet 600 mg PO Q6H PRN (Reason: fever or pain) Qty: 30 0RF amoxicillin-pot clavulanate 875-125 mg tablet 1 tab PO BID Qty: 14 0RF cetirizine 10 mg tablet 10 mg PO DAILY norgestimate-ethinyl estradiol 0.25-35 mg-mcg tablet 1 tab PO DAILY clonidine HCl 0.1 mg tablet 0.1 mg PO BID Print Language: Irish
[2024-02-11] MEDS: Ibuprofen 600 MG TABLET PO (22:44)
[2024-02-11] MEDS: Cyclobenzaprine HCl 10 MG TABLET PO (22:44)
[2024-02-11 22:52] VITALS: BP 113/76; PULSE 77; RESP 16; TEMP 36.4; O2SAT 100
== END 2024-02-11 22:53 | disposition home or self-care (01) ==
PROVIDERS: Emergency Provider Internal Medicine; PCP General Practice
DX: S39.012A Strain of muscle, fascia and tendon of lower back, initial encounter (principal); R10.2 Pelvic and perineal pain; X58.XXXA Exposure to other specified factors, initial encounter; Y93.9 Activity, unspecified; Y92.9 Unspecified place or not applicable; Y99.8 Other external cause status; Z79.899 Other long term (current) drug therapy
CPT/HCPCS: 36415; 80053; 81003; 81025; 85025; 99283; 99284

== ENCOUNTER 2024-02-15 11:04 | Outpatient (REF) | payer MEDICAID, SELFPAY | END 2024-02-15 11:05 | disposition home or self-care (01) | LOC: HO.HOSX 11:04 | PROVIDERS: Visit Provider Physician Assistant | DX: Z13.89 Encounter for screening for other disorder (principal) ==

== ENCOUNTER 2024-03-20 11:08 | Outpatient (REF) | payer MEDICAID, SELFPAY ==
[2024-03-20 13:27] LABS: MANUAL DIFF FLAG NO
[2024-03-20 13:41] LABS: Basophils Percent Auto 0.5 % (0-2); Eosinophils Absolute Auto 0.2 X10*3/uL (0.0-0.4); Eosinophils Percent Auto 2.1 % (0-4); Hematocrit 38.2 % (37.0-47.0); Hemoglobin 12.8 g/dl (12.0-16.0); Imm Gran Abs Auto 0.02 X10*3/uL (0.00-0.03); Imm Gran Pct Auto 0.3 % (0.0-0.4); Lymphocytes Absolute Auto 2.3 X10*3/uL (1.2-4.9); Lymphocytes Percent Auto 30.3 % (20-40); Mean Corpuscular HGB Conc 33.5 g/dl (31.0-35.0); Mean Corpuscular Hemoglobin 27.8 pg (27.0-33.0); Mean Platelet Volume 9.9 fL (9.4-12.3); Monocytes Absolute Auto 0.4 X10*3/uL (0.1-1.2); Monocytes Percent Auto 5.4 % (2-11); Neutrophils Absolute Auto 4.6 x10*3/uL (2.0-8.3); Neutrophils Percent Auto 61.4 % (45-73); Platelet Count 209 X10*3/uL (160-400); Red Cell Distribution Width 12.5 % (11.0-16.0); White Blood Count 7.5 X10*3/uL (4.8-10.8)
[2024-03-20 14:07] LABS: Anion Gap 11 (12-20); Blood Urea Nitrogen 9 mg/dL (9-16); Calcium 9.8 mg/dL (8.4-10.2); Carbon Dioxide 27 mmol/L (22-29); Chloride 107 mmol/L (96-108); Estimated Glomerular Filt Rate > 60; Glucose Random 88 mg/dL (60-115); Sodium 141 mmol/L (135-145)
== END 2024-03-20 11:09 | disposition home or self-care (01) ==
LOC: HO.HHCL 11:08
PROVIDERS: Visit Provider Internal Medicine
DX: R19.7 Diarrhea, unspecified (principal)
CPT/HCPCS: 36415; 80048; 85025

== ENCOUNTER 2024-05-09 18:45 | Outpatient (REF) | payer MEDICAID, SELFPAY ==
[2024-05-10 11:25] LABS: Bacterial Vaginosis PCR POSITIVE (Negative); Candida Group PCR DETECTED (Not Detect); Candida glab krusei PCR NOT DETECTED (Not Detect); Trichomonas vaginalis PCR NOT DETECTED (Not Detect)
[2024-05-10 12:17] LABS: CT PCR NOT DETECTED (Not Detect.); NG PCR NOT DETECTED (Not Detect.)
== END 2024-05-09 18:46 | disposition home or self-care (01) ==
LOC: HO.HHCLNP 18:45
PROVIDERS: Visit Provider Internal Medicine Geriatric Medicine
DX: N92.1 Excessive and frequent menstruation with irregular cycle (principal)
CPT/HCPCS: 0352U; 87491; 87591

== ENCOUNTER 2024-08-10 10:49 | Outpatient (REF) | payer MEDICAID, SELFPAY ==
[2024-08-10 14:05] LABS: Estimated Average Glucose 100 mg/dL; Hemoglobin A1C 101.8654 umol/L; Hemoglobin A1c % 5.1 % (<6.0); Total Hemoglobin (HGBA1C) 3195.5923 umol/L
[2024-08-10 14:12] LABS: TSH reflex Free T4 1.32 uIU/mL (0.32-4.0)
== END 2024-08-10 10:50 | disposition home or self-care (01) ==
LOC: HO.HHCL 10:49
PROVIDERS: Visit Provider General Practice
DX: E66.3 Overweight (principal)
CPT/HCPCS: 36415; 83036; 84443

== ENCOUNTER 2024-10-04 22:34 | Emergency (ER) | payer MEDICAID, SELFPAY ==
[2024-10-04 22:36] VITALS: BP 108/76; PULSE 111; RESP 20; TEMP 36.8; O2SAT 99; BMI 34.0
[2024-10-04] MEDS: 0.9 % Sodium Chloride 1,000 ML 999 ML IV (23:55)
[2024-10-04] MEDS: ondansetron HCL 4 MG/2 ML VIAL IVPUSH (23:56)
[2024-10-04 23:58] LABS: Basophils Percent Auto 0.3 % (0-2); Eosinophils Percent Auto 0.4 % (0-4); Hematocrit 36.1 % (37.0-47.0); Hemoglobin 12.7 g/dl (12.0-16.0); Imm Gran Abs Auto 0.04 X10*3/uL (0.00-0.03); Imm Gran Pct Auto 0.4 % (0.0-0.4); Lymphocytes Absolute Auto 0.7 X10*3/uL (1.2-4.9); Lymphocytes Percent Auto 6.8 % (20-40); MANUAL DIFF FLAG NO; Mean Corpuscular HGB Conc 35.2 g/dl (31.0-35.0); Mean Corpuscular Hemoglobin 28.2 pg (27.0-33.0); Mean Platelet Volume 9.4 fL (9.4-12.3); Monocytes Absolute Auto 0.3 X10*3/uL (0.1-1.2); Monocytes Percent Auto 3.1 % (2-11); Neutrophils Absolute Auto 9.7 x10*3/uL (2.0-8.3); Platelet Count 241 X10*3/uL (160-400); Red Blood Count 4.51 X10*6/uL (4.20-5.50); Red Cell Distribution Width 12.2 % (11.0-16.0); White Blood Count 10.9 X10*3/uL (4.8-10.8)
[2024-10-05] VITALS: BP 97/62; PULSE 115; RESP 18; TEMP 38.4; O2SAT 100
[2024-10-05] MEDS: Acetaminophen 1,000 MG/100 ML PIGGYBACK 400 MG IV (00:18)
[2024-10-05 00:20] LABS: Alanine Aminotransferase 15 U/L (0-31); Albumin Level 4.1 g/dL (3.5-5.0); Alkaline Phosphatase 60 U/L (39-117); Anion Gap 15 (12-20); Aspartate Amino Transferase 28 U/L (5-31); Bilirubin Total 0.8 mg/dL (0.0-1.0); Blood Urea Nitrogen 11 mg/dL (9-16); Calcium 8.6 mg/dL (8.4-10.2); Carbon Dioxide 22 mmol/L (22-29); Chloride 105 mmol/L (96-108); Creatinine Clr Calc Pharmacy 124.5; Estimated Glomerular Filt Rate > 60; Glucose Random 113 mg/dL (60-115); HCG Quantitative < 2 mIU/mL; Lipase 17 U/L (8-78); Magnesium 1.8 mg/dL (1.6-2.6); Potassium 4.7 mmol/L (3.3-5.1); Sodium 137 mmol/L (135-145); Total Protein 7.3 g/dL (6.5-8.0)
--- NOTE | 2024-10-05 00:51 | ED_ITS ---
HPI - Nausea/Vomiting/Diarrhea General Chief complaint: Nausea/Vomiting/Diarrhea Stated complaint: Vomiting Diarrhea Time Seen by Provider: 10/04/24 23:02 Source: patient Limitations: no limitations History of Present Illness ED Provider: Dora Brown PA-C HPI Narrative: 24-year-old otherwise healthy female presents with the acute onset nausea vomiting diarrhea. Associated abdominal cramping, with body aches. No known sick contacts with same symptoms. No use of antibiotics, recent travel or hospitalizations. Associated nausea: Yes Related Data Home Medications ?Medication ?Instructions ?Recorded ?Confirmed cetirizine 10 mg tablet 10 mg PO DAILY 07/20/22 clonidine HCl 0.1 mg tablet 0.1 mg PO BID 07/20/22 norgestimate 0.25 mg-ethinyl 1 tab PO DAILY 07/20/22 estradiol 35 mcg tablet Previous Rx's ?Medication ?Instructions ?Recorded ondansetron 4 mg disintegrating 4 mg PO Q6-8H PRN nausea and 09/23/20 tablet vomiting #7 tabs metronidazole 500 mg tablet 500 mg PO BID 7 days #14 tabs 05/18/22 fluconazole 150 mg tablet 150 mg PO Q3D 2 doses #2 tabs 05/19/22 (Diflucan) ibuprofen 600 mg tablet 600 mg PO Q6H PRN fever or pain 04/09/23 #30 tabs amoxicillin 875 mg-potassium 1 tab PO BID #14 tabs 05/16/23 clavulanate 125 mg tablet lidocaine 5 % topical patch 1 patch topical DAILY #15 ea 12/26/23 (Lidoderm) naproxen 500 mg tablet 500 mg PO Q8-12H PRN pain (scale 12/26/23 score 4-6) #10 tabs cyclobenzaprine 10 mg tablet 10 mg PO Q8H #20 tabs 02/11/24 ibuprofen 600 mg tablet 600 mg PO Q6H PRN fever or pain 02/11/24 #30 tabs dicyclomine 20 mg tablet 20 mg PO BID diarrhea #7 tabs 10/05/24 ondansetron HCl 4 mg tablet 4 mg PO Q8H PRN nausea and 10/05/24 vomiting #10 tabs Allergies Allergy/AdvReac Type Severity Reaction Status Date / Time grapefruit [GRAPEFRUIT] Allergy Unknown ITCHY MOUTH Verified 10/04/24 22:37 orange [ORANGE] Allergy Unknown ITCHY MOUTH Verified 10/04/24 22:37 nitrofurantoin Allergy Vomiting Verified 10/04/24 22:37 [From Macrobid] pineapple Allergy Itching Verified 10/04/24 22:37 Review of Systems 2 Review of Systems: Yes all other systems are reviewed and are negative Constitutional: Constitutional: Reports fatigue, Denies fever(s) and Reports malaise Cardiovascular: Cardiovascular: Denies chest pain and Denies dyspnea Respiratory: Respiratory: Denies cough and Denies dyspnea Gastrointestinal: Gastrointestinal: Reports GI cramping, Reports diarrhea, Reports nausea and Reports vomiting Endocrine: Endocrine: Reports fatigue PMF Past Medical History Attestation statement: The following information was validated with the patient. Medical History History of posttraumatic stress disorder (PTSD) Social phobia Depressed Insomnia No known health problems Social History Social History Alcohol intake: current Alcohol intake frequency: holidays/special occasions only Alcohol type: wine Smoked in Last 30 Days: Yes Use of substances other than those prescribed or required for medical reasons: No Substance Use Type: Marijuana Advance Directives: No Advance Directives Information Provided: Yes Patient : No Current occupation: [employer] Physical Exam 2 Vital Signs: Vital Signs: Last Vital Signs Temp 101.2 F H 10/05/24 00:00 Pulse 115 H 10/05/24 00:00 Resp 18 10/05/24 00:00 BP 97/62 10/05/24 00:00 Pulse Ox 100 10/05/24 00:00 O2 Del Method Room Air 10/05/24 00:00 BMI result Body Mass Index 34.0 Const: Other: Alert Orientation/consciousness: patient oriented x3 Resp: Effort & Inspection: normal respiratory effort Cardio: Other: Normal peripheral perfusion GI: Other: Abdomen is soft, nontender nondistended Skin: Other: Warm dry no rash Neuro: General: patient oriented x3, no focal motor deficits and CN's II-XI intact bilaterally Psych: Other: Calm cooperative Medications Administered Discontinued Medications Generic Name Dose Route Start Last Admin Trade Name Freq PRN Reason Stop Dose Admin Sodium Chloride 1,000 mls @ 999 mls/hr 10/04/24 23:15 10/04/24 23:55 Ns IV 10/05/24 00:15 999 mls/hr .Q1H1M DEACON Administration Acetaminophen 1,000 mg in 100 mls @ 400 mls/hr 10/05/24 00:14 10/05/24 00:18 Ofirmev IV 10/05/24 00:28 400 mls/hr ONCE ONE Administration Ondansetron HCl 4 mg 10/04/24 23:03 10/04/24 23:56 Ondansetron Hcl 4 Mg/2 Ml Vial IVPUSH 10/04/24 23:04 4 mg ONCE ONE Administration Medical Decision Making Medical Decision Making [facility] Narrative: 24-year-old otherwise healthy female presents with the acute onset nausea vomiting diarrhea. Associated abdominal cramping, with body aches. No known sick contacts with same symptoms. No use of antibiotics, recent travel or hospitalizations. No chronic issues History: Per patient I have considered the following differential diagnoses: Viral gastroenteritis, acute intra-abdominal pathology, C diff, traveler's diarrhea Plan: Given abrupt onset without abdominal pain, this is viral gastroenteritis, such illness has been prevalent within the community. We will be obtaining screening labs to assess for electrolyte abnormality, giving IV fluid and Zofran. She has no risk factors for C diff or traveler's diarrhea. She has no focal pain on exam to suggest an acute infection imaging not warranted at this time. She also just spiked a temperature here, we will be giving Tylenol. I have independently reviewed the following tests: Labs: Slight leukocytosis, not anemic, no electrolyte abnormality noted, viral panel negative Lab Data 10/04/24 23:53 10/04/24 23:53 Labs: Lab Results 10/04/24 10/05/24 Range/Units 23:53 00:11 WBC 10.9 H (4.8-10.8) X10*3/uL RBC 4.51 (4.20-5.50) X10*6/uL Hgb 12.7 (12.0-16.0) g/dl Hct 36.1 L (37.0-47.0) % MCV 80.0 (80.0-98.0) fL MCH 28.2 (27.0-33.0) pg MCHC 35.2 H (31.0-35.0) g/dl RDW 12.2 (11.0-16.0) % Plt Count 241 (160-400) X10*3/uL MPV 9.4 (9.4-12.3) fL Immature Gran % (Auto) 0.4 (0.0-0.4) % Neut % (Auto) 89.0 H (45-73) % Lymph % (Auto) 6.8 L (20-40) % Blackford % (Auto) 3.1 (2-11) % Eos % (Auto) 0.4 (0-4) % Baso % (Auto) 0.3 (0-2) % Lymph # (Auto) 0.7 L (1.2-4.9) X10*3/uL Blackford # (Auto) 0.3 (0.1-1.2) X10*3/uL Eos # (Auto) 0.0 (0.0-0.4) X10*3/uL Baso # (Auto) 0.0 (0.0-0.2) X10*3/uL Abs Immat Gran (auto) 0.04 H (0.00-0.03) X10*3/uL Absolute Neuts (auto) 9.7 H (2.0-8.3) x10*3/uL Absolute Nucleated RBC 0.000 (0.0-0.012) X10*3/uL Nucleated RBC % (auto) 0.0 (0.0-0.2) /100WBC Sodium 137 (135-145) mmol/L Potassium 4.7 (3.3-5.1) mmol/L Chloride 105 (96-108) mmol/L Carbon Dioxide 22 (22-29) mmol/L Anion Gap 15 (12-20) BUN 11 (9-16) mg/dL Creatinine 0.68 (0.5-1.4) mg/dL Estim Creat Clear Calc 124.5 Estimated GFR > 60 Random Glucose 113 (60-115) mg/dL Calcium 8.6 D (8.4-10.2) mg/dL Magnesium 1.8 (1.6-2.6) mg/dL Total Bilirubin 0.8 (0.0-1.0) mg/dL AST 28 (5-31) U/L ALT 15 (0-31) U/L Alkaline Phosphatase 60 (39-117) U/L Total Protein 7.3 (6.5-8.0) g/dL Albumin 4.1 (3.5-5.0) g/dL Lipase 17 (8-78) U/L Beta HCG, Quant < 2 mIU/mL Influenza Type A (PCR) NEGATIVE (Negative) Influenza Type B (PCR) NEGATIVE (Negative) RSV RNA Qual (PCR) NEGATIVE (Negative) SARS-CoV-2 RNA (RT-PCR) NEGATIVE (Negative) Discharge Plan Discharge Clinical Impression: Viral gastroenteritis Patient Disposition: Home, Self-Care Instructions: Gastroenteritis (ED) Additional Instructions: You have a virus causing your symptoms. Such illness has been prevalent within the community. See home care instructions. Uses Zofran as needed for nausea, use the dicyclomine as needed for abdominal cramping and diarrhea. Follow up with your primary care provider as needed. You can use [id number] ibuprofen 600 mg taken every 6 hours with food, alternated with [id number] Tylenol 1000 mg taken every 8 hours, as needed for body aches and fever. Prescriptions: New ondansetron HCl 4 mg tablet 4 mg PO Q8H PRN (Reason: nausea and vomiting) Qty: 10 0RF dicyclomine 20 mg tablet 20 mg PO BID Qty: 7 0RF No Action ondansetron 4 mg tablet,disintegrating 4 mg PO Q6-8H PRN (Reason: nausea and vomiting) Qty: 7 0RF metronidazole 500 mg tablet 500 mg PO BID 7 Days Qty: 14 0RF fluconazole [Diflucan] 150 mg tablet 150 mg PO Q3D Qty: 2 0RF Rx Instructions: may repeat second dose 72 hrs after first dose if symptoms persist lidocaine [Lidoderm] 5 % adhesive patch,medicated 1 patch topical DAILY Qty: 15 0RF Rx Instructions: leave on most painful area for up to 12 hrs naproxen 500 mg tablet 500 mg PO Q8-12H PRN (Reason: pain (scale score 4-6)) Qty: 10 0RF cyclobenzaprine 10 mg tablet 10 mg PO Q8H Qty: 20 0RF ibuprofen 600 mg tablet 600 mg PO Q6H PRN (Reason: fever or pain) Qty: 30 0RF ibuprofen 600 mg tablet 600 mg PO Q6H PRN (Reason: fever or pain) Qty: 30 0RF amoxicillin-pot clavulanate 875-125 mg tablet 1 tab PO BID Qty: 14 0RF cetirizine 10 mg tablet 10 mg PO DAILY norgestimate-ethinyl estradiol 0.25-35 mg-mcg tablet 1 tab PO DAILY clonidine HCl 0.1 mg tablet 0.1 mg PO BID Print Language: Niuean
[2024-10-05 00:56] LABS: Influenza A PCR NEGATIVE (Negative); Influenza B PCR NEGATIVE (Negative); Resp Syncy Virus RNA Qual PCR NEGATIVE (Negative); SARS COV2 PCR INHOUSE NEGATIVE (Negative)
[2024-10-05 01:01] VITALS: TEMP 37.2
[2024-10-05 01:11] VITALS: BP 103/62; PULSE 95; RESP 18; TEMP 37.7; O2SAT 97
== END 2024-10-05 01:14 | disposition home or self-care (01) ==
PROVIDERS: Emergency Provider Internal Medicine; PCP General Practice
DX: A08.4 Viral intestinal infection, unspecified (principal); R11.2 Nausea with vomiting, unspecified; F12.90 Cannabis use, unspecified, uncomplicated; Z03.818 Encounter for observation for suspected exposure to other biological agents ruled out
CPT/HCPCS: 0241U; 36415; 80053; 83690; 83735; 84702; 85025; 96361; 96374; 96375; 99284; J0131; J2405

== ENCOUNTER 2025-02-07 14:11 | Outpatient (REF) | payer OTHER, MEDICAID, SELFPAY ==
--- NOTE | ~2025-02-07 | XR_ITS ---
EXAMINATION: XR FOOT 3 OR MORE VIEWS LEFT HISTORY: crush injury to top of foot 24 hours ago COMPARISON: Comparison is made with the prior examination dated 03/22/2021. FINDINGS: Three views of the left foot are submitted. Osseous mineralization is normal. There is no fracture or dislocation. The joint spaces are preserved. The soft tissues are unremarkable. XR/XR foot LT min 3V IMPRESSION: Unremarkable examination of the left foot. Electronically signed by: Kd Ferrell MD 02/07/2025 02:39 PM EDT
--- OUTSIDE RECORDS SUMMARY | 2025-02-07 15:23 | XMS_ITS | Encounter Summary ---
Author Organization [facility] Address [address] [place] [address] Phone Care Team Providers Care Media Sales Consultant Name Role Phone Provider, Fracisco MALIK Primary Care Provider [phone] Encounter Details Date Type Department Care Team (Late st Contact Info) Description 06/12/2016 Documentation [facility] [place] Family Medicine [address] [place] [address] Family Medicine, Physician [address] [phone] Social History Tobacco Use Types Packs/Day Years Used Date Smoking Tobacco: Never Assessed Comments Unknown Sex and Gender Information Value Date Recorded Sex Assigned at Not on file Legal Sex Female 5:17 PM EDT Gender Identity Not on file Sexual Orientation Not on file documented as of this encounter Plan of Treatment Not on file documented as of this encounter Visit Diagnoses Not on filedocumented in this encounter Care Teams Media Sales Consultant Relationship Specialty Start Date End Date Provider, MD Fracisco [address] [place] [address] PCP - General Pediatrics 07/02/21 11/05/21 documented as of this encounter
--- OUTSIDE RECORDS SUMMARY | 2025-02-07 15:23 | XMS_ITS | Encounter Summary ---
Author Organization [employer] Address [address] [place] [address] [address] [place] [address] Care Team Providers Care Global Expansion Sales Director Name Role Phone Natividad Allen MD Primary Care Provider [phone] Reason for Visit * Reason Comments Med Refill Encounter Details Date Type Department Care Team (Late st Contact Info) Description 02/23/2023 Refill [facility] MEDICINE [address] [place] [address] [phone] Natividad Allen MD [address] [place] [address] [phone] Social History Tobacco Use Types Packs/Day Years Used Date Smoking Tobacco: Never Smokeless Tobacco: Current Comments:everyday Alcohol Use Standard Drinks/Week Comments Never 0 (1 standard drink = 0.6 oz pur e alcohol) Depression Answer Date Recorded Patient Health Questionnaire-9 Score 24 11/06/2022 Depression Answer Date Recorded Patient Health Questionnaire-2 Score 6 11/06/2022 Comments Unknown Sex and Gender Information Value Date Recorded Sex Assigned at Female 08/03/2022 10:23 AM EDT Legal Sex Female 10:23 AM EDT Gender Identity Female 08/03/2022 10:23 AM EDT Sexual Orientation Bisexual 08/03/2022 10 :23 AM EDT documented as of this encounter Plan of Treatment Upcoming Encounters Date Type Department Care Team (Late st Contact Info) Description 02/09/2025 10:30 AM EDT Office Visit [facility] MED[facility]INE [address] [place] [address] [phone] Natividad Allen MD [address] [place] [address] [phone] documented as of this encounter Visit Diagnoses Not on filedocumented in this encounter Additional Health Concerns Assessment Noted Time PHQ-9 Depression Total Score: 24 023 11:28 AM EST documented as of this encounter Care Teams Global Expansion Sales Director Relationship Specialty Start Date End Date Natividad Allen MD [address] [place] [address] PCP - General Family Medicine 05/28/22 documented as of this encounter
--- OUTSIDE RECORDS SUMMARY | 2025-02-07 15:23 | XMS_ITS | Encounter Summary ---
Author Organization [facility] Address [address] [place] [address] Phone Care Team Providers Care Boston Cutter Name Role Phone Provider, Fracisco MALIK Primary Care Provider [phone] Encounter Details Date Type Department Care Team (Late st Contact Info) Description 10/28/2010 Documentation [facility] [place] Family Medicine [address] [place] [address] Family Medicine, Physician [address] [phone] Social History Tobacco Use Types Packs/Day Years [...] on filedocumented in this encounter Care Teams Boston Cutter Relationship Specialty Start Date End Date Provider, MD Fracisco [address] [place] [phone] PCP - General Pediatrics 07/02/21 11/05/21 documented as of this encounter
--- OUTSIDE RECORDS SUMMARY | 2025-02-07 15:23 | XMS_ITS | Encounter Summary ---
Author Organization [facility] Address [address] [place] [address] Phone Care Team Providers Care Disc Pad Plate Filler Name Role Phone Provider, Fracisco MALIK Primary Care Provider [phone] Reason for Visit * Reason Comments Med Refill Encounter Details Date Type Department Care Team (Late st Contact Info) Description 07/13/2019 Refill [facility] [place] [address] [place] [address] Real Schneider MD [address] [place] [address] Dermatitis Social History Tobacco Use Types Packs/Day Years Used Date Smoking Tobacco: Never Smokeless Tobacco: Never Comments:Never smoker, secon d hand smoke exposure Alcohol Use Standard Drinks/Week Comments No 0 (1 standard drink = 0.6 oz pur e alcohol) Hunger/Food Answer Date Recorded No 10/19/2018 Stable Housing Answer Date Recorded 0 10/19/2018 Transportation Concerns Answer Date Rec orded Yes 10/19/2018 Hazards in Home Answer Date Recorded No 10/19/2018 Financing Utilities Answer Date Recorde d No 10/19/2018 Safety at Home Answer Date Recorded No 10/19/2018 Outside Support Answer Date Recorded No 10/19/2018 Understanding Health Concerns Answer Da te Recorded No 10/19/2018 Financing Health Concerns Answer Date R ecorded No 10/19/2018 Missing School or Work Answer Date Kimo rded No 10/19/2018 Comments No Sex and Gender Information Value Date Recorded Sex Assigned at Not on file Legal Sex Female 5:17 PM EDT Gender Identity Not on file Sexual Orientation Not on file documented as of this encounter Miscellaneous Notes * Telephone Encounter - Mendy Goldberg LPN - 07/19/2019 1:15 PM EDT [facility] PCP BLL: Pt returning call to office, updated her phone number. Pt states she is also taking sertaline 50mg and trazadone (unsure of dose), these meds are prescribed by psych. Pt asking if Rx for cetirizine can now be sent. As Nat and DB not in office, will ask another provider to send. EH * Telephone Encounter - Mendy Goldberg LPN - 07/19/2019 12:52 PM EDT 2nd request received refill cetirizine. 2nd VM left asking pt to call see earlier phone notes. EH * Telephone Encounter - Mendy Goldberg LPN - 07/13/2019 11:00 AM EDT Per DB, VM left asking pt to call. Dr. Bond is asking if pt is on any other meds. EH * Telephone Encounter - Stacy Pace LPN - 07/13/2019 7:27 AM EDT PT of [facility]- Refill request for Cetirizine. Last PE 08/23/18, has pending PE appt on 08/15/19/KASHMIR documented in this encounter Plan of Treatment Not on file documented as of this encounter Visit Diagnoses Diagnosis Dermatitis Contact dermatitis and other eczema, due to unspecified cause documented in this encounter Care Teams Disc Pad Plate Filler Relationship Specialty Start Date End Date Provider, MD Fracisco [address] [place] [phone] PCP - General Pediatrics 07/02/21 11/05/21 documented as of this encounter
--- OUTSIDE RECORDS SUMMARY | 2025-02-07 15:23 | XMS_ITS | Encounter Summary ---
Author Organization [facility] Address [address] [place] [phone] Phone Care Team Providers Care Dump Grounds Checker Name Role Phone Provider, Fracisco MALIK Primary Care Provider [phone] Encounter Details Date Type Department Care Team (Late st Contact Info) Description 12/11/2014 Documentation [facility] [place] Family Medicine [address] [place] [address] Family Medicine, Physician [address] [place] [phone] Social History Tobacco Use Types Packs/Day Years [...] on filedocumented in this encounter Care Teams Dump Grounds Checker Relationship Specialty Start Date End Date Provider, MD Fracisco [address] [place] [phone] PCP - General Pediatrics 07/02/21 11/05/21 documented as of this encounter
--- OUTSIDE RECORDS SUMMARY | 2025-02-07 15:23 | XMS_ITS | Encounter Summary ---
Author Organization [facility] Address [address] [place] [address] Phone Care Team Providers Care Railroad Car Repair Supervisor Name Role Phone Provider, Fracisco MALIK Primary Care Provider [phone] Encounter Details Date Type Department Care Team (Late st Contact Info) Description 05/20/2017 Conversion Encounter [facility] [place] [address] [place] [address] Social History Tobacco Use Types Packs/Day Years Used Date Smoking Tobacco: Never Comments:Never smoker Comments Unknown Sex and Gender Information Value Date Recorded Sex Assigned at Not on file Legal Sex Female 5:17 PM EDT Gender Identity Not on file Sexual Orientation Not on file documented as of this encounter Plan of Treatment Not on file documented as of this encounter Visit Diagnoses Not on filedocumented in this encounter Care Teams Railroad Car Repair Supervisor Relationship Specialty Start Date End Date Provider, MD Fracisco [address] [place] [phone] PCP - General Pediatrics 07/02/21 11/05/21 documented as of this encounter
--- OUTSIDE RECORDS SUMMARY | 2025-02-07 15:23 | XMS_ITS | Encounter Summary ---
Author Organization [facility] Address [address] [place] [phone] Phone Care Team Providers Care Gambling Box Person Name Role Phone Provider, Fracisco MALIK Primary Care Provider [phone] Reason for Visit * Reason Comments Med Refill Encounter Details Date Type Department Care Team (Late st Contact Info) Description 02/11/2020 Refill [facility] [place] [address] [place] [address] Soliatrio Faria MD [address] [place] [address] Dermatitis Social History Tobacco Use Types Packs/Day Years Used Date Smoking Tobacco: Never Smokeless Tobacco: Never Comments:Never smoker, secon d hand smoke exposure Alcohol Use Standard Drinks/Week Comments No 0 (1 standard drink = 0.6 oz pur e alcohol) Hunger/Food Answer Date Recorded In the last 12 months, did y ou or your family ever eat less than you felt you should because there wasn't enough money for food? No 09/25/2019 Stable Housing Answer Date Recorded Are you worried that in the next 2 months you may not have stable housing? No 09/25/2019 Transportation Concerns Answer Date Rec orded In the last 12 months, have you or your family ever had to go without healthcare because you didn't have a way to get there? No 09/25/2019 Hazards in Home Answer Date Recorded Think about the place you li ve. Do you have problems with any of the following? Pests (mice or roaches), mold, no/not working smoke detectors, water leaks, no window guards. Yes 2018 Financing Utilities Answer Date Recorde d In the last 12 months, has t he electric, gas, oil, or water company threatened to shut off your services in your home? No 09/25/2019 Safety at Home Answer Date Recorded Are you or your family worried about feeling saf e in your home? No 09/25/2019 Outside Support Answer Date Recorded Do you feel that you need mo re support from other people or programs to help you care for yourself or your family? No 09/25/2019 Understanding Health Concerns Answer Da te Recorded Do you need help understandi ng your or your child's healthcare needs (diagnosis, medications, plan, etc.)? No 09/25/2019 Financing Health Concerns Answer Date R ecorded In the last 12 months, was t here a time when your child needed to see a doctor or get medications or supplies but could not because of cost? No 09/25/2019 Missing School or Work Answer Date Kimo rded Did you or your child miss s chool or work because of a health problem that could have been avoided? No 09/25/2019 Comments No Sex and Gender Information Value Date Recorded Sex Assigned at Not on file Legal Sex Female 5:17 PM EDT Gender Identity Not on file Sexual Orientation Not on file documented as of this encounter Miscellaneous Notes * Telephone Encounter - Stacy Pace LPN - 02/12/2020 10:48 AM EDT Pt of [facility]- refill request for Ceterizine. Last pe 09/25/19/KASHMIR documented in this encounter Plan of Treatment Not on file documented as of this encounter Visit Diagnoses Diagnosis Dermatitis Contact dermatitis and other eczema, due to unspecified cause documented in this encounter Care Teams Gambling Box Person Relationship Specialty Start Date End Date Provider, MD Fracisco [address] [place] [phone] PCP - General Pediatrics 07/02/21 11/05/21 documented as of this encounter
--- OUTSIDE RECORDS SUMMARY | 2025-02-07 15:23 | XMS_ITS | Encounter Summary ---
Author Organization [facility] Address [address] [place] [address] Phone Care Team Providers Care Case Therapist Name Role Phone Provider, Fracisco MALIK Primary Care Provider [phone] Encounter Details Date Type Department Care Team (Late st Contact Info) Description 10/21/2011 Documentation [facility] [place] [address] [place] [address] Family Medicine, Physician [address] [place], [place] [phone] Social History Tobacco Use Types Packs/Day Years [...] on filedocumented in this encounter Care Teams Case Therapist Relationship Specialty Start Date End Date Provider, MD Fracisco [address] [place] [phone] PCP - General Pediatrics 07/02/21 11/05/21 documented as of this encounter
--- OUTSIDE RECORDS SUMMARY | 2025-02-07 15:23 | XMS_ITS | Encounter Summary ---
Author Organization [facility] Address [address] [place] [address] Phone Care Team Providers Care Delivery Driver/Customer Service Name Role Phone Provider, Fracisco MALIK Primary Care Provider [phone] Encounter Details Date Type Department Care Team (Late st Contact Info) Description 11/15/2014 Documentation [facility] [place] Family Medicine [address] [place] [address] Family Medicine, Physician [address], [place] [phone] Social History Tobacco Use Types Packs/Day Years [...] on filedocumented in this encounter Care Teams Delivery Driver/Customer Service Relationship Specialty Start Date End Date Provider, MD Fracisco [address] [place] [phone] PCP - General Pediatrics 07/02/21 11/05/21 documented as of this encounter
--- OUTSIDE RECORDS SUMMARY | 2025-02-07 15:24 | XMS_ITS | Clinical Summary ---
Author Organization [employer] Address [address] [place] [address] [address] [place] [address] Care Team Providers Care Stump Shooter Name Role Phone Natividad Allen MD Primary Care Provider [phone] Allergies Active Allergy Reactions Criticality Noted Date Comments Grapefruit Extract 01/27/2022 Other reaction(s): Facial swelling Nitrofurantoin Hives 10/30/2022 Calumet Oil Swelling 01/27/2022 Pineapple 11/02/2022 Medications EPINEPHrine (Epipen) 0.3 MG/0.3ML injection syringe inject 0.3 milliliter by intramuscular route once as needed for anaphylaxis, then call 911 immediately 01/29/20 22 Active Ventolin HFA 108 (90 Base) MCG/ACT inhalerIndica tions:Wheezin g INHALE 2 PUFFS EVERY 6 HOURS IF NEEDED FOR WHEEZING. 18 g 1 10/25/19 24 Active ibuprofen 600 MG tablet Take 1 tablet by mouth every 6 (six) hours if needed. 10/13/19 24 Active atomoxetine (Strattera) 60 MG capsule Take 60 mg by mouth Once per day. 05/03/20 24 Active norgestimate- ethinyl estradiol (Ortho-Cyclen ) 0.25-35 MG-MCG tablet Take 1 tablet by mouth Once per day. 07/17/20 24 Active QUEtiapine (SEROquel) 25 MG tablet Take 25 mg by mouth in the evening. 05/03/20 24 Active Acetaminophen Extra Strength 500 MG tablet Take 1 tab po TID prn headache/fever/c hills/body aches/pain 30 tablet 09/19/20 24 Active cetirizine (ZyrTEC) 10 MG tablet TAKE 1 TABLET BY MOUTH EVERY DAY 90 tablet 3 12/12/19 25 Active lamoTRIgine (LaMICtal) 200 MG tablet TAKE 1 TABLET (200 MG) BY MOUTH ONCE PER DAY. 90 tablet 01/16/20 25 Active fluticasone (Flonase) 50 MCG/ACT nasal spray ADMINISTER 1 SPRAY INTO EACH NOSTRIL ONCE PER DAY. 48 mL 01/16/20 25 025 Active ibuprofen 600 MG tabletIndicat ions:Swelling of left foot,Injury of left foot, initial encounter Take 1 tablet (600 mg) by mouth every 8 (eight) hours if needed for moderate pain or fever. 30 tablet 02/07/20 25 025 Active fluticasone (Flonase) 50 MCG/ACT nasal spray ADMINISTER 1 SPRAY INTO EACH NOSTRIL ONCE PER DAY. 48 mL 10/11/19 25 025 Discontinued lamoTRIgine (LaMICtal) 200 MG tablet TAKE 1 TABLET (200 MG) BY MOUTH ONCE PER DAY. 90 tablet 10/11/19 25 025 Discontinued Active Problems Problem Noted Date Diagnosed Date Swelling of left foot 02/06/2025 Assessment & Plan (02/06/2025 4:24 PM EDT): Reports injury yesterday to left dorsum foot. Has mild ecchymosis, swelling and tenderness on exam. -ordered XR of left foot 02/06/25 -prescribed ibuprofen 600 MG -recommended rest, elevation, ice and compression. Subacute maxillary sinusitis 09/19/2024 Assessment & Plan (09/19/2024 3:05 PM EST): Rapid viral tests are NEG today Rx Augmentin x 7d Rest (sleep at least 8 hours a night). Out of work x 2d , back on 09/21. Hydrate with plenty of water (avoid caffeine and alcohol). Use saline nose drops to loosen mucus + Floanse nasal daily x 7d Take Acetaminophen (Tylenol??)/Ibuprofen as needed to reduce fever, headache, body aches or discomfort Gargle with salt water and use throat sprays/lozenges for throat pain. Use heated, humidified air. If you do not have a humidifier, take hot showers. Cover coughs and sneezes using the crook of your elbow. If you have a fever, stay home and away from others (self isolation) until fever-free for 72 hours (temperature should be less than 100??F without medication). Amenorrhea 09/19/2024 Assessment & Plan (09/19/2024 3:05 PM EST): HCG is neg today, she should fu with PCP on that regard, it could be related to stress, change on meds Continue OCPs. Overweight 11/15/2023 Left knee pain 08/08/2023 Assessment & Plan (08/08/2023 11:36 AM EST): Will need to r/o patellar fracture -NSAIDS,tylenol prn -rest, ice -gave excuse letter for work for 3 days for now -XR left knee- if fx will need to refer to ortho -if not better to reasses here may need MRI ,ortho -has a knee brace at home -advised to used it -gave today crutches here to avoid weight bearing Mood disorder 01/28/2022 Assessment & Plan (09/19/2024 3:14 PM EST): Rx Lamictal 200mg daily as she was taken before, rx sent to pharmacy, she needs to fu with PCP and call [facility] to be assigned with a new prescriber. Continue Seroquel, she doesn't seem to be taking Straterra, she will fu with PCP and bring all her meds. Assessment & Plan (11/15/2023 11:26 AM EST): Continue f/u with psychiatrist and therapist Assessment & Plan (11/08/2022 8:10 AM EST): Refer to [facility] to re-engage therapy, aid in diagnostic clarity prescriber for aid in prescribing meds Sickle cell trait 01/28/2022 Posttraumatic stress disorder 01/28/2022 Social phobia 01/28/2022 Anxiety 08/18/2017 Poor concentration 08/18/2017 Depression 08/18/2017 Sleep pattern disturbance 08/18/2017 Resolved Problems Problem Noted Date Diagnosed Date Resolved Date Examination, routine, over 18 years of age 0211/15/2023 08/02/2024 Assessment & Plan (11/15/2023 11:26 AM EST): Discuss with [facility] about changing contraceptives, continue Pap services there if wanted Labs for weight are normal Imms UTD Wheezing 07/26/2023 08/02/2024 Assessment & Plan (07/26/2023 5:16 PM EDT): She seems to have asthma exacerbation Use albuterol inh q4h x 2-3d then prn Order PFTs in 1-2m and fu with PCP Non-recurrent acute serous o titis media of right ear 07/26/2023 08/02/2024 Assessment & Plan (07/26/2023 5:17 PM EDT): Use Flonase nasal spray daily x 2w Take tylenol prn ear pain or apply heat to affected area. Counseled to quit smoking Viral syndrome 06/03/2023 08/02/2024 Assessment & Plan (06/03/2023 3:08 PM EDT): COVID test done at the office is negative Drink plenty of fluids rest Acetaminophen PRN Adolescent behavior problem 08/18/2017 08/02/2024 Encounters Date Type Department Care Team Description 02/06/2025 4:20 PM EDT Office Visit [facility] [address] [place] [phone] Cyndy Chatterjee MD Swelling of left foot (Primary Dx); Injury of left foot, initial encounter 02/02/2025 Patient Outreach [facility] [address] [place] [phone] Natividad Allen MD Pre-visit Planning (SDOH screening negative and Tobacco screening negative) 01/13/2025 Refill [facility] [address] [place] [phone] Natividad Allen MD 12/15/2024 Population Health Risk Score [facility] ([facility] Department [address] [place] [phone] Provider, Population Health Generic 12/13/[address] [phone] Natividad Allen MD No Show 12/10/[address] [phone] Natividad Allen MD 12/06/2024 Patient Outreach [address] [phone] Natividad Allen MD Pre-visit Planning ((Unable to reach for PVP screening, LVM)) 11/23/[address] [phone] Natividad Allen MD recall from Last 3 Months Immunizations Name Administration Dates Next Due DTaP, 5 pertussis antigens 06/10/2005,,2001,08/30,2001 HPV, Quadrivalent 07/18/2014,07/18/2013,07/25/20 12 Hep A, ped/adol, 2 dose 10/17/2015,07/18/2014 Hep B, Adolescent or Pediatric 2001,2000,2001 Hib (PRP-T) 07/25/2002, 2,2001,06/29 IPV 06/10/2005, 2,2001,06/29 Influenza Injectable Quadriv alant Preservative Free IIV4 MDCK 10/09/2022 Influenza injectable quadriv alent IIV4 with preservative 08/03/2016,07/30/2015 Influenza injectable quadriv alent preservative free 10/07/2023,09/25/2019,08/18/2017,07/18 Influenza, IIV3, injectable 07/01/2009, 8,07/18/2008 Influenza, Split (incl. gris fied surface antigen) 07/18/2013,07/07/2012 Influenza, live, intranasal 06/19/2011, 0 MMR 06/10/2005,04/24/2002 Meningococcal MCV4P [id number] 08/18/2017,07/25/20 12 Moderna Covid-19 Vaccine 6+ Bivalent 10/09/2022 Novel [id number], all formulations 11/04/2009 Pfizer Covid-19 Vaccine 12+ 03/29/2021, Pneumococcal Conjugate PCV 7 04/23/2003, 2001,2001,06/29 Tdap 03/22/2021,07/25/2012 Varicella 05/10/2007,04/24/2002 Social History Tobacco Use Types Packs/Day Years Used Date Smoking Tobacco: Never Passive Smoke Exposure: Never Smokeless Tobacco: Never Tobacco Cessation:Counseling Given: Not Answered Comments:everyday Alcohol Use Standard Drinks/Week Comments Never 0 (1 standard drink = 0.6 oz pur e alcohol) Alcohol Answer Date Recorded Frequency of Alcohol Consumption Not on file 11/12/2023 Average Number of Drinks Not on file 024 Frequency of Binge Drinking Not on file 06/2024 Score 0 11/12/2023 Depression Answer Date Recorded Patient Health Questionnaire-9 Score 24 11/06/2022 Housing Stability Answer Date Recorded What is your housing situation today? I have roxanne che 02/02/[address] you li ve. Do you have problems with any of the following? None of the above 02/02/2025 Food Insecurity Answer Date Recorded Within the past 12 months, y ou worried that your food would run out before you got money to buy more: Never True 02/02/2025 Within the past 12 months,th e food you bought just didn't last and you didn't have enough money to get more: Never True 11/2024 Transportation Answer Date Recorded In the past 12 months, has l ack of transportation kept you from medical appts, meetings, work or from getting things needed for daily living? No 02/02/2025 Utilities Answer Date Recorded In the past 12 months, has t he electric, gas, oil or water company threatened to shut off services in your home? No 02/02/2025 Depression Answer Date Recorded Patient Health Questionnaire-2 Score 6 11/06/2022 Internet Access Answer Date Recorded Internet Access Q1 Yes 02/02/2025 Internet Access Q2 Not on file 02/02/2025 Comments Unknown Sex and Gender Information Value Date Recorded Sex Assigned at Female 08/03/2022 10:23 AM EDT Legal Sex Female 10:23 AM EDT Gender Identity Female 08/03/2022 10:23 AM EDT Sexual Orientation Bisexual 08/03/2022 10 :23 AM EDT Last Filed Vital Signs Vital Sign Reading Time Taken Comments Blood Pressure 132/73 02/06/2025 4:17 PM EDT Pulse 85 02/06/2025 4:17 PM EDT Temperature 37.2 ??C (98.9 ??F) 02/06/2025 4:17 PM ED T Respiratory Rate 20 02/06/2025 4:17 PM EDT Oxygen Saturation 98% 02/06/2025 4:17 PM EDT Inhaled Oxygen Concentration - - Weight 86.7 kg (191 lb 3.2 oz) 02/06/2025 4:17 P M EDT Height 157.5 cm (5' 2 ) 08/02/2024 3:58 PM EDT Body Mass Index 34.97 08/02/2024 3:58 PM EDT Plan of Treatment Upcoming Encounters Date Type Department Care Team (Late st Contact Info) Description 02/09/2025 10:30 AM EDT Office Visit [facility] [address] [place] [address] Natividad Allen MD [address] [place] [address] Health Maintenance Due Date Last Done Comments Alcohol/Substance Use Screening 2013 Family Planning (PISQ) 2016 Pap Smear 2022 Depression Screening 11/06/2023 11/06/2022, 11/06/19 23 COVID-19 Vaccine ( season) 2024 10/07/2023, 10/09/2022, 10/06/2021, Additional history exists Influenza Vaccine (#1) 2024 , 10/09/2022, 09/25/2019, Additional history exists Chlamydia and Gonorrhea Screening 05/09/2025 05/09/2024 SDOH Screening 02/02/2026 02/02/2025 Tobacco Screening 02/06/2026 02/06/2025 DTaP/Tdap/Td Vaccines (8 - Td or Tdap) 03/22/2031 03/22/2021, 07/25/2012, 06/10/2005, Additional history exists Zoster Vaccines (1 of 2) 2051 RSV Patients and Patients Aged 60 years or older (1 - 1-dose 75+ series) 2076 Hepatitis B Vaccines Completed 2001, 2001, 2001 HIB Vaccines Completed 07/25/2002, 11/05, 2001, Additional history exists Pneumococcal Vaccine: Pediatrics (0 to 5 Years) and At-Risk Patients (6 to 49) Years) Aged Out 04/23/2003, 2001, 2001, Additional history exists No longer eligible based on patient's age to complete this topic IPV Vaccines Completed 06/10/2005, 04/04, 2001, Additional history exists HPV Vaccines Completed 07/18/2014, 07/04, 07/25/2012 Hepatitis A Vaccines Completed 10/17/2015, 07/18/20 14 Meningococcal Vaccine Completed 08/18/2017, 012 HIV Screening Completed 01/27/2022 Hepatitis C Screening Completed 01/27/2022 RSV under 20 months Aged Out No longe r eligible based on patient's age to complete this topic Rotavirus Vaccines Aged Out No longer eligible based on patient's age to complete this topic Procedures Procedure Name Priority Date/Time Associated Diagnosis Comments XR FOOT 3+ VIEWS LEFT Routine 02/07/2025 2:11 PM EDT Swelling of left foot Injury of left foot, initial encounter CHLAMYDIA/N. GONORRHOEAE RNA, TMA, UROGENITAL Routine 05/09/2024 2:58 PM EDT Menorrhagia with irregular cycle ZZZ HISTORICAL HEPATITIS C AB W/REFL TO HCV RNA, QN, PCR Routine 01/27/2022 2:42 PM EDT HIV 1/2 ANTIGEN/ANTIBODY, FOURTH GENERATION W/RFL Routine 01/27/2022 2:42 PM EDT from Last 3 Months or Most Recently Relevant to Health Maintenance Results * XR Foot 3+ Views Left (02/07/2025 2:11 PM EDT) Anatomical Region Laterality Modality Lower Extremities, Foot Left Radiogra phic Imaging 02/07/2025 2:11 PM EDT Narrative 02/07/2025 2:42 PM EDT ?[facility] ?[address] ?[place] [address] ?XRay Report ? Signed ? Patient: Harrell Colon,Charito ?MR#: [id number] ?? [id number] ? : 2000 ?Acct:[id number] ? Age/Sex: 24 / F ?ADM Date: 02/07/25 ? Loc: HO.HHCX ? Attending Dr: Cyndy Chatterjee MD ? Ordering Physician: Cyndy Chatterjee MD ?? Date of Service: 02/07/25 ?? Procedure(s): XR foot LT min 3V ?? Accession Number(s): [id number] ? cc: Cyndy Chatterjee MD ? EXAMINATION: ??XR FOOT 3 OR MORE VIEWS LEFT ? HISTORY: crush injury to top of foot 24 hours ago ? COMPARISON: Comparison is made with the prior examination dated ?? 03/22/2021. ? FINDINGS: ? Three views of the left foot are submitted. ??Osseous mineralization is ?? normal. ??There is no fracture or dislocation. ??The joint spaces are ?? preserved. ??The soft tissues are unremarkable. ? XR/XR foot LT min 3V ?? IMPRESSION: ? Unremarkable examination of the left foot. ? Electronically signed by: ??Kd Ferrell MD ??02/07/2025 02:39 PM EDT ?? RP ? Dictated By: ?Kd Ferrell MD ? Signed By: ?<Electronically signed by Kd Ferrell MD in OV> ?02/07/25 1439 ? DD/ 1411 ? TD/TT: 02/07/25 1435 ? Director Of Women'S Services: ? Procedure Note Jesi Coe - 02/07/2025 [facility] [address] [place] [address] XRay Report Signed Patient: Shiraz Elder#: [id number] : 2000Acct:[id number] Age/Sex: 24 / FADM Date: 02/07/25 Loc: HO.HHCX Attending Dr: Cyndy Chatterjee MD Ordering Physician: Cyndy Chatterjee MD Date of Service: 02/07/25 Procedure(s): XR foot LT min 3V Accession Number(s): [id number] cc: Cyndy Chatterjee MD EXAMINATION: XR FOOT 3 OR MORE VIEWS LEFT HISTORY: crush injury to top of foot 24 hours ago COMPARISON: Comparison is made with the prior examination dated 03/22/2021. FINDINGS: Three views of the left foot are submitted. Osseous mineralization is normal. There is no fracture or dislocation. The joint spaces are preserved. The soft tissues are unremarkable. XR/XR foot LT min 3V IMPRESSION: Unremarkable examination of the left foot. Electronically signed by: Kd Ferrell MD 02/07/2025 02:39 PM EDT Dictated By: Kd Ferrell MD Signed By: <Electronically signed by Kd Ferrell MD in OV> 02/07/25 1439 DD/ 1411 TD/TT: 02/07/25 1435 Director Of Women'S Services: Cyndy Chattereje MD IMG XR PROCEDURES Final Re sult * Chlamydia/N. Gonorrhoeae RNA, TMA, Urogenitial (05/09/2024 2:58 PM EDT) [facility] CT PCR NOT DETECTED Not Detect. [facility] Comment:A not detected test result does not exclude the possibilityof infection because test results can be affected byimproper specimen collection, concurrent antibiotic therapy,or the number of organisms in the specimen which may bebelow the sensitivity of the test. As with many diagnostictests, results from the Xpert CT/NG assay should beinterpreted in conjunction with other laboratory andclinical data available to the clinician.Xpert CT/NG performance has not been evaluated in patientsless than 14 years of age. The assay should not be used forthe evaluationof suspected sexual abuse or for other medico-legalindications. Additional testing is recommended in anycircumstance when false positive or false negative resultscould lead to adverse medical, social or psychologicalconsequences. NG PCR NOT DETECTED Not Detect. [facility] Comment:A not detected test result does not exclude the possibilityof infection because test results can be affected byimproper specimen collection, concurrent antibiotic therapy,or the number of organisms in the specimen which may bebelow the sensitivity of the test. As with many diagnostictests, results from the Xpert CT/NG assay should beinterpreted in conjunction with other laboratory andclinical data available to the clinician.Xpert CT/NG performance has not been evaluated in patientsless than 14 years of age. The assay should not be used forthe evaluationof suspected sexual abuse or for other medico-legalindications. Additional testing is recommended in anycircumstance when false positive or false negative resultscould lead to adverse medical, social or psychologicalconsequences. Swab (Vaginal Swab) 05/09/2024 2:58 PM EDT 05/09/2024 6:47 PM EDT Narrative [facility] - 05/10/2024 12:17 PM EDT Vaginal Bright aWrner MD LAB MICROBIOLOGY - GENERAL ORDER COLIN Final Result [facility] [address] [place] [phone] * HEPATITIS C AB W/REFL TO HCV RNA, QN, PCR (01/27/2022 2:42 PM EDT) HEPATITIS C ANTIBODY NON-REACT TEE NON-REACT TEE [facility] INDEX 0.01 <1.00 [facility] Comment: ?? HCV antibody was non-reactive. There is no laboratory ?? evidence of HCV infection. ?? In most cases, no further action is required. However, if recent HCV exposure is suspected, a test for HCV RNA (test code 02922) is suggested. ?? For additional information please refer to http://education.[employer]/faq/CNI86g2 (This link is being provided for informational/ educational purposes only.) ?? 01/27/2022 2:42 PM EDT Myrtle Holland NP HISTORICAL/NON ORDERABLE LABS F inal Result Performing Organization Address [facility] de Phone Number [facility] [address] * HIV 1/2 ANTIGEN/ANTIBODY,FOURTH GENERATION W/RFL (01/27/2022 2:42 PM EDT) HIV-1/2 ANTIGEN AND ANTIBODIES, 4TH GENERATION W/ REFLEX NON-REACT TEE NON-REACT TEE [facility] Comment: HIV-1 antigen and HIV-1/HIV-2 antibodies were not detected. There is no laboratory evidence of HIV infection. ?? PLEASE NOTE: This information has been disclosed to you from records whose confidentiality may be protected by state law. ??If your state requires such protection, then the state law prohibits you from making any further disclosure of the information without the specific written consent of the person to whom it pertains, or as otherwise permitted by law. A general authorization for the release of medical or other information is NOT sufficient for this purpose. ? For additional information please refer to http://education.[employer]/faq/PGK354 (This link is being provided for informational/ educational purposes only.) ? The performance of this assay has not been clinically validated in patients less than 2 years old. ?? 01/27/2022 2:42 PM EDT Myrtle Holland NP LAB BLOOD ORDERABLES Final Resu lt Performing Organization Address [facility] de Phone Number [facility] [address] from Last 3 Months or Most Recently Relevant to Health Maintenance Insurance [facility] C3 Care Teams Stump Shooter Relationship Specialty Start Date End Date Natividad Allen MD [address] [place] [phone] PCP - General Family Medicine 05/28/22
--- OUTSIDE RECORDS SUMMARY | 2025-02-07 15:24 | XMS_ITS | Encounter Summary ---
Author Organization [facility] Address [address] [place] [phone] Phone Care Team Providers Care Bmw Sales Consultant Name Role Phone Provider, Fracisco MALIK Primary Care Provider [phone] Encounter Details Date Type Department Care Team (Late st Contact Info) Description 01/04/2014 Documentation [facility] Family Medicine [address] [place] [address] Family Medicine, Physician [address] [place], [place] [phone] Social History Tobacco Use Types Packs/Day Years [...] on filedocumented in this encounter Care Teams Bmw Sales Consultant Relationship Specialty Start Date End Date Provider, MD [address]acisco [address] [place] [phone] PCP - General Pediatrics 07/02/21 11/05/21 documented as of this encounter
--- OUTSIDE RECORDS SUMMARY | 2025-02-07 15:24 | XMS_ITS | Encounter Summary ---
Author Organization [facility] Address [address] [place] [phone] Phone Care Team Providers Care Stone Fabricator Name Role Phone Provider, Fracisco MALIK Primary Care Provider [phone] Encounter Details Date Type Department Care Team (Late st Contact Info) Description 11/16/2012 Documentation [facility] [place] [facility] [address] [place] [address] Family Medicine, Physician [address] [phone] Social History Tobacco Use Types Packs/Day Years [...] on filedocumented in this encounter Care Teams Stone Fabricator Relationship Specialty Start Date End Date Provider, MD Fr[address]isco [address] [place] [phone] PCP - General Pediatrics 07/02/21 11/05/21 documented as of this encounter
--- OUTSIDE RECORDS SUMMARY | 2025-02-07 15:24 | XMS_ITS | Clinical Summary ---
Author Organization [facility] Address [address] [place] [address] Phone Care Team Providers Care Traffic Counter Name Role Phone Unavailable Primary Care Provider Unavailabl e Allergies No known active allergies Medications cloNIDine 0.1 MG tablet TAKE 1/2 TO 1 TABLET BY MOUTH EVERY NIGHT 1 11/30/2019 Active sertraline 50 MG tablet TAKE 1 AND 1/2 TABLET BY MOUTH EVERY MORNING 1 11/25/2019 Active cetirizine 10 MG tabletIndicatio ns:Dermatitis TAKE 1 TABLET BY MOUTH EVERY DAY 90 tablet 5 09/01/2021 Active Active Problems Problem Noted Date Diagnosed Date Poor concentration 08/18/2017 Anxiety 08/18/2017 Adolescent behavior problem 08/18/2017 Vision changes 08/18/2017 Sleep pattern disturbance 08/18/2017 Depression 08/18/2017 Overweight child with body mass index (BMI) > 99 % for age 0906/10/2010 Resolved Problems Problem Noted Date Diagnosed Date Resolved Date Encounter for routine child health examination with abnormal findings 08/18/201708/15 Immunizations Immunization Administration Dates Next Due DTaP 5 06/10/2005, 3,2001,08/30,2001 H1N1 11/04/2009 HPV, Quadrivalent 07/18/2014,07/18/2013,07/25/20 12 Hep A, ped/adol 10/17/2015,07/18/2014 Hep B, ped/adol 2001,2001,2001 Hib (PRP-T) 07/25/2002, 2,2001,06/29 IPV 06/10/2005, 2,2001,06/29 Influenza Split 07/18/2013,07/07/2012 Influenza, injectable, quadrivalent 08/03/2016,1 Influenza, injectable, quadr ivalent, preservative free 09/25/2019,08/18/2017,07/18/2014 Influenza, injectable, trivalent 07/01/2009,08/04,07/18/2008 Influenza, intranasal, trivalent 06/19/2011,04/2010 MMR 06/10/2005,04/24/2002 Meningococcal Conj (Menactra) MCV4P 08/18/2017,1 Pneumococcal Conjugate 04/23/2003,2001,2001,06/29 Tdap 03/22/2021,07/25/2012 Varicella 05/10/2007,04/24/2002 Family History Medical History Relation Name Comments Diabetes Father Stroke Maternal Grandfather Alzheimer's disease Maternal Grandmother Asthma Maternal Grandmother Depression Maternal Grandmother Diabetes Maternal Grandmother Anxiety disorder Mother Jayne Asthma Mother Jayne Depression Mother Jayne Diabetes Mother Jayne Diabetes Paternal Grandfather Hypertension Paternal Grandfather Diabetes Paternal Grandmother Hypertension Paternal Grandmother Relation Name Status Comments Father Alive Father: Sickle Cell, Asthma Maternal Grandfather Materna l grandfather: Diabetes mellitus Maternal Grandmother Alive Materna l grandmother: Diabetes mellitus Mother Jayne Alive Mother: asthma, Type II DM, Hypo thyro Other Family history of Asthma, Family history of *Heart Disease, Family history of Hyperlipidemia, Family history of *CVA/Stroke, Family history of Migraines, Family history of Obesity, No family history of Developmental dislocation of hip, No family history of Cancer, No family history of Strabismus, No family history of Deafness, Family history of *Thrombophilia, Family history of Seizure disorder, Family history of ADD/ADHD, No family history of *Sudden /CT under 55 Paternal Grandfather Alive Paterna l grandfather: Diabetes mellitus Paternal Grandmother Alive Paterna l grandmother: Diabetes mellitus Social History Tobacco Use Types Packs/Day Years [...] on file Sexual Orientation Not on file Last Filed Vital Signs Vital Sign Reading Time Taken Comments Blood Pressure 114/80 12/13/2019 11:10 AM EDT Pulse 93 12/13/2019 11:10 AM EDT Temperature 37.3 ??C (99.1 ??F) 12/13/2019 11:10 AM E DT Respiratory Rate - - Oxygen Saturation - - Inhaled Oxygen Concentration - - Weight 83.1 kg (183 lb 3.2 oz) 12/13/2019 11:10 AM EDT Height 156.2 cm (5' 1.5 ) 09/25/2019 1:42 PM EST Body Mass Index 34.05 09/25/2019 1:42 PM EST Plan of Treatment Health Maintenance Due Date Last Done Comments Men B Vaccine (1 of 2 - Standard) 2017 Influenza Vaccines (#1) 2024 09/25/20 19, 08/18/2017, 08/03/2016, Additional history exists COVID-19 Vaccine (2023-2 5 season) 2024 10/06/2021, 03/29/2021, 03/08/2021 DTaP,Tdap,and Td Vaccines (8 - Td or Tdap) 03/22/2031 03/22/2021, 07/25/2012, 06/10/2005, Additional history exists Hepatitis B Vaccines Completed 2001, 2001, 2001 HIB Vaccines Completed 07/25/2002, 11/05, 2001, Additional history exists Pneumococcal Vaccine Completed 04/23/2003, 2001, 2001, Additional history exists IPV Vaccines Completed 06/10/2005, 04/04, 2001, Additional history exists MMR Vaccines Completed 06/10/2005, 04/24/2002 Varicella Vaccines Completed 05/10/2007, 04/24/2002 HPV Vaccines Completed 07/18/2014, 07/04, 07/25/2012 Hepatitis A Vaccines Completed 10/17/2015, 07/18/20 14 Meningococcal Vaccine Completed 08/18/2017, 012 Procedures * Due to [place] law, this organization might not be sharing sensitive test results. Procedure Name Priority Date/Time Associated Diagnosis Comments CHLAMYDIA AND GONORRHEA, AMPLIFIED Routine 12/13/2019 11:24 AM EDT Screening examination for bacterial and spirochetal disease from Last 3 Months or Most Recently Relevant to Health Maintenance Results * Due to [place] law, this organization might not be sharing sensitive test results. * Chlamydia and Gonorrhoea, Amplified (12/13/2019 11:24 AM EDT) Chlamydia Trachomatis, DNA Probe NEGATIVE (NEG) [facility] Comment: No Chlamydia Trachomatis RNA detected in this patient's sample ? (REFERENCE RANGE/NORMAL VALUE: NOT DETECTED) ? Note: This test uses research chef- mediated amplification method to detect rRNA from C. Trachomatis URINE GC AMP PROBE NEGATIVE (NEG) [facility] Comment: No Neisseria Gonorrhoeae RNA detected in this patient's sample ? (REFERENCE RANGE/NORMAL VALUE: NOT DETECTED) ? NOTE: This test uses research chef-mediated amplification method to detect rRNA from N.Gonorrhoeae. A negative result does not preclude infection. In the case of a negative urine result, testing of an endocervical(female) or urethral (male) specimen is recommended if there is high clinical suspicion of infection. Due to very high sensitivity of Nucleic Acid Amplification Test, false positive results may occur. Therefore, specimen handling is extremely important. In patients in whom the disease is unlikely, additional sample for testing should be considered after an initial positive result. The performance characteristics of this test have not been evaluated in children. The Aptima Combo2 assay is not intended for the evaluation of suspected sexual abuse or for other medico-legal indications. The ordering provider should assess if the patient had consensual sex without risk of sexual abuse. Consult the [facility] if needed. Contact phone number . Therapeutic failure or success cannot be determined with the Aptima Combo2 assay since nucleic acid may persist following appropriate antimicrobial therapy. The Centers for Disease Control and Prevention (CDC) recommends confirmatory retesting using culture or a different nucleic acid amplification test when positive results occur, if indicated. Testing performed or reported by [facility], a Service of [facility], [facility] [address], [place] [address] Orlando Brown MD, Airplane Fueler Urine 12/13/2019 11:2 4 AM EDT 12/13/2019 7:20 PM EDT Irina Alcantara NP LAB MICROBIOLOGY - GENERAL OR DERABLES Final Result [facility] from Last 3 Months or Most Recently Relevant to Health Maintenance Insurance [facility] NON PCC
--- OUTSIDE RECORDS SUMMARY | 2025-02-07 15:24 | XMS_ITS | Encounter Summary ---
Author Organization [facility] Address [address] [place] [address] Phone Care Team Providers Care Fourdrinier Machine Operator Name Role Phone Provider, Fracisco MALIK Primary Care Provider [phone] Encounter Details Date Type Department Care Team (Late st Contact Info) Description 07/12/2012 Documentation [facility] Family Medicine [address] [place] [address] Family Medicine, Physician [address] [place] [place] [phone] Social History Tobacco Use Types Packs/Day Years [...] on filedocumented in this encounter Care Teams Fourdrinier Machine Operator Relationship Specialty Start Date End Date Provider, MD [address] [place] [phone] PCP - General Pediatrics 07/02/21 11/05/21 documented as of this encounter
--- OUTSIDE RECORDS SUMMARY | 2025-02-07 15:24 | XMS_ITS | Encounter Summary ---
Author Organization [facility] Address [address] [place] [address] Phone Care Team Providers Care Assistant Clinical Director Name Role Phone Provider, Fracisco MALIK Primary Care Provider [phone] Encounter Details Date Type Department Care Team (Late st Contact Info) Description 02/25/2012 Documentation [facility] Family Medicine [address] [place] [address] Family Medicine, Physician [address] [place] [phone] Social History Tobacco Use Types Packs/Day Years [...] on filedocumented in this encounter Care Teams Assistant Clinical Director Relationship Specialty Start Date End Date Provider, MD [address] [place] [phone] PCP - General Pediatrics 07/02/21 11/05/21 documented as of this encounter
--- OUTSIDE RECORDS SUMMARY | 2025-02-07 15:24 | XMS_ITS | Encounter Summary ---
Author Organization [employer] Address [address] [place] [address] [address] [place] [address] Care Team Providers Care Time Study Analyst Name Role Phone Natividad Allen MD Primary Care Provider Reason for Visit * Reason Comments Pre-visit Planning SDOH screening negat amanda and Tobacco screening negative Encounter Details Date Type Department Care Team ([facility] st Contact Info) Description 02/02/2025 Patient Outreach [facility] [address] [place] [address] Natividad Allen MD [address] [place] [address] Pre-visit Planning (SDOH screening negative and Tobacco screening negative) Social History Tobacco Use Types Packs/Day Years Used Date Smoking Tobacco: Never Passive Smoke Exposure: Never Smokeless Tobacco: Never Comments:everyday Alcohol Use Standard Drinks/Week Comments Never [...] AM EDT documented as of this encounter Progress Notes * Kj Aldridge - 02/02/2025 1:53 PM EDT CC Kj Santillan placed successful outbound call to patient for pre-visit planning. Patient name and confirmed. Patient confirms appt date and time, and has transportation arrangements. Biggest concern for appointment at this time is no concerns. Patient advised to bring to appointment a photo id and insurance card. Appropriate screenings completed in anticipation of appointment. documented in this encounter Plan of Treatment Upcoming Encounters Date Type Department Care Team (Late st Contact Info) Description 02/09/2025 10:30 AM EDT Office Visit [facility] [address] [place] [address] Natividad Allen MD [address] [place] [address] documented as of this encounter Visit Diagnoses Not on filedocumented in this encounter Additional Health Concerns Assessment Noted Time PHQ-9 Depression Total Score: 24 023 11:28 AM EST documented as of this encounter Care Teams Time Study Analyst Relationship Specialty Start Date End Date Natividad Allen MD [address] [place] [address] PCP - General Family Medicine 05/28/22 documented as of this encounter
--- OUTSIDE RECORDS SUMMARY | 2025-02-07 15:24 | XMS_ITS | Encounter Summary ---
Author Organization [facility] Address [address] [place] [address] Phone Care Team Providers Care Coordinator Cardiopulmonary Services Name Role Phone Provider, Fracisco MALIK Primary Care Provider [phone] Encounter Details Date Type Department Care Team (Late st Contact Info) Description 12/04/2011 Documentation [facility] Family Medicine [address] [place] [address] Family Medicine, Physician [address] [phone] Social History Tobacco Use Types Packs/Day Years [...] on filedocumented in this encounter Care Teams Coordinator Cardiopulmonary Services Relationship Specialty Start Date End Date Provider, MD [address] [place] [phone] PCP - General Pediatrics 07/02/21 11/05/21 documented as of this encounter
--- OUTSIDE RECORDS SUMMARY | 2025-02-07 15:24 | XMS_ITS | Encounter Summary ---
Author Organization [employer] [facility] Address [address] [facility] [address] [place] [address] Care Team Providers Care Database Tester Name Role Phone Natividad Allen MD Primary Care Provider [phone] Reason for Visit * Reason Comments left foot pain Encounter Details Date Type Department Care Team (Late st Contact Info) Description 02/06/2025 4:20 PM EDT Office Visit [facility] [address] [place] [address] Cyndy Chatterjee MD [address] [place] [address] Swelling of left foot (Primary Dx); Injury of left foot, initial encounter Social History Tobacco Use Types Packs/Day Years [...] AM EDT documented as of this encounter Last Filed Vital Signs Vital Sign Reading [...] oz) 02/06/2025 4:17 P M EDT Height - - Body Mass Index 34.97 08/02/2024 3:58 PM EDT documented in this encounter Progress Notes * Boo Richey - 02/06/2025 4:20 PM EDT Images from the original note were not included. Subjective Patient ID: Charito Arita is a 24 y.o. female who presents to walk in clinic for left foot pain. Pt reports she hurt her left foot yesterday when her coworker hit her foot with a cart and she cannot bend her toes down. Review of Systems Constitutional: Negative for fever and unexpected weight change. Respiratory: Negative for shortness of breath. Cardiovascular: Negative for chest pain. Gastrointestinal: Negative for abdominal pain. Genitourinary: Negative for difficulty urinating. Musculoskeletal: Foot pain Objective Visit Vitals BP 132/73 (BP Location: Left arm, Patient Position: Sitting, BP Cuff Size: Adult) Pulse 85 Temp 98.9 ??F (37.2 ??C) (Temporal) Resp 20 Body mass index is 34.97 kg/m??. Physical Exam Constitutional: Appearance: Normal appearance. Cardiovascular: Rate and Rhythm: Normal rate and regular rhythm. Heart sounds: Normal heart sounds. Pulmonary: Effort: Pulmonary effort is normal. Breath sounds: Normal breath sounds. Musculoskeletal: Cervical back: Normal range of motion and neck supple. Feet: Comments: Left foot: mild ecchymosis, tenderness and swelling over dorsum of left foot. Neurological: General: No focal deficit present. Mental Status: She is alert. Psychiatric: Behavior: Behavior normal. Problem List Items Addressed This Visit Swelling of left foot - Primary Reports injury yesterday to left dorsum foot. Has mild ecchymosis, swelling and tenderness on exam. -ordered XR of left foot 02/06/25 -prescribed ibuprofen 600 MG -recommended rest, elevation, ice and compression. Relevant Medications ibuprofen 600 MG tablet Other Relevant Orders XR Foot 3+ Views Left Other Visit Diagnoses Injury of left foot, initial encounter Relevant Medications ibuprofen 600 MG tablet Other Relevant Orders XR Foot 3+ Views Left -No evidence of acute disease process. Suspect left foot soft tissue injury versus fracture. Symptoms mild. -Will treat with analgesic/anti-inflammatory and ordered XR. -ER precautions discussed. -Seek medical attention for worsening symptoms. I, Boo Richey, am serving as a scribe to document services personally performed by Dr. Jauregui, based on the patient's response to questions by provider and providers statements to me. documented in this encounter Miscellaneous Notes * Assessment & Plan Note - oBo Richey - 02/06/2025 4:24 PM EDTAssociated Problem(s): Swelling of left foot Reports injury yesterday to left dorsum foot. Has mild ecchymosis, swelling and tenderness on exam. -ordered XR of left foot 02/06/25 -prescribed ibuprofen 600 MG -recommended rest, elevation, ice and compression. documented in this encounter Plan of Treatment Upcoming Encounters Date Type Department Care Team (Late st Contact Info) Description 02/09/2025 10:30 AM EDT Office Visit [facility] [address] [place] [address] Natividad Allen MD [address] [facility] [place] [address] documented as of this encounter Procedures Procedure Name Priority Date/Time Associated Diagnosis Comments XR FOOT 3+ VIEWS LEFT Routine 02/07/2025 2:11 PM EDT Swelling of left foot Injury of left foot, initial encounter documented in this encounter Results * XR Foot 3+ Views Left (02/07/2025 2:11 PM EDT) Anatomical Region Laterality Modality Lower Extremities, Foot Left [facility] 02/07/2025 2:11 PM EDT Narrative 02/07/2025 2:42 PM EDT ?[facility] ?[address] ?[place] [address] ?XRay Report ? Signed ? Patient: Harrell Colon,Charito ?MR#: [id number] ? : 2000 ?Acct:[id number] ? Age/Sex: 24 / F ?ADM Date: 02/07/25 ? Loc: HO.HHCX ? Attending Dr: Cyndy Chatterjee MD ? Ordering Physician: Cyndy Chatterjee MD ?? Date of Service: 02/07/25 ?? Procedure(s): XR foot LT min 3V ?? Accession Number(s): [id number] ? cc: Cyndy Chatterjee MD ? EXAMINATION: [...] DD/ 1411 ? TD/TT: 02/07/25 1435 ? Gameplay Programmer: ? Procedure Note Saravanan, Image - 02/07/[address] [address] XRay Report Signed Patient: Charito EdlerMR#: [id number] : 2000Acct:[id number] Age/Sex: 24 / FADM Date: 02/07/25 Loc: HO.HHCX Attending Dr: Cyndy Chatterjee MD Ordering Physician: Cyndy Chatterjee MD Date of Service: 02/07/25 Procedure(s): XR foot LT min 3V Accession Number(s): [id number] cc: Cyndy Chatterjee MD EXAMINATION: XR FOOT [...] 02/07/25 1439 DD/ 1411 TD/TT: 02/07/25 1435 Gameplay Programmer: Cyndy Chatterjee MD IMG XR PROCEDURES Final Re sult documented in this encounter Visit Diagnoses Diagnosis Swelling of left foot- Primary Injury of left foot, initial encounter documented in this encounter Additional Health Concerns Assessment Noted Time PHQ-9 Depression Total Score: 24 023 11:28 AM EST documented as of this encounter Care Teams Database Tester Relationship Specialty Start Date End Date Natividad Allen MD [address] [place] [address] PCP - General Family Medicine 05/28/22 documented as of this encounter
== END 2025-02-07 14:12 | disposition home or self-care (01) ==
LOC: HO.HHCX 14:11
PROVIDERS: Visit Provider Family Medicine
DX: S99.922A Unspecified injury of left foot, initial encounter (principal); R60.0 Localized edema
CPT/HCPCS: 73630

== ENCOUNTER → 2025-02-07 14:11 | Outpatient (BNV) | payer OTHER, SELFPAY | PROVIDERS: Visit Provider Radiology Diagnostic Radiology | DX: S97.82XA Crushing injury of left foot, initial encounter (principal) | CPT/HCPCS: 73630 ==

== ENCOUNTER 2025-02-26 16:28 | Emergency (ER) | payer MEDICAID, SELFPAY ==
--- NOTE | ~2025-02-26 | US_ITS ---
CLINICAL HISTORY: RUQ pain --- Additional Notes or Special Instructions: GB and CBD please US abdomen limited Comparison: Ultrasound of the abdomen (limited) from 04/09/2023 Findings: The majority of the pancreas is obscured. Hepatopetal flow in the imaged main portal vein. Periportal echoes in the partially imaged liver. Kidney, aorta, and IVC or obscured. No gallbladder wall thickening or pericholecystic fluid. Gallbladder is partly obscured. Gallbladder is underdistended at the time of the imaging. Sonographic Rivera's sign is not elicited by the technologist. Imaged CBD is nondilated measuring 0.5 cm maximum diameter. No right upper quadrant ascites or right pleural effusion in the [id number]. IMPRESSION: 1. No ultrasound findings of acute cholecystitis at this time. 2. Imaged CBD is nondilated This document has been electronically signed by: Carlos Machado MD on 02/26/2025 18:24:03
[2025-02-26 16:36] VITALS: BP 113/71; PULSE 90; RESP 18; TEMP 36.6; O2SAT 98; BMI 34.9
--- NOTE | 2025-02-26 16:36 | ED_ITS ---
HPI - General Adult General Chief complaint: Abdominal Pain Stated complaint: vomiting Time Seen by Provider: 02/26/25 18:52 Source: patient Limitations: no limitations History of Present Illness ED Provider: Dora Brown PA-C HPI narrative: 24-year-old female presents with abdominal discomfort for a year. Patient states she frequently develops acute onset diarrhea every time she attempts to eat. At times, attempts to eat cause her to become nauseous, she feels as if she can not swallow the food. Patient has not followed up with her primary care provider. No change in symptoms. No true abdominal discomfort. Denies recent use of antibiotics, travel or hospitalization. No fevers. Related Data Home Medications ?Medication ?Instructions ?Recorded ?Confirmed cetirizine 10 mg tablet 10 mg PO DAILY 07/20/22 clonidine HCl 0.1 mg tablet 0.1 mg PO BID 07/20/22 norgestimate 0.25 mg-ethinyl 1 tab PO DAILY 07/20/22 estradiol 0.035 mg tablet Previous Rx's ?Medication ?Instructions ?Recorded ondansetron 4 mg disintegrating 4 mg PO Q6-8H PRN nausea and 09/23/20 tablet vomiting #7 tabs metronidazole 500 mg tablet 500 mg PO BID 7 days #14 tabs 05/18/22 fluconazole 150 mg tablet 150 mg PO Q3D 2 doses #2 tabs 05/19/22 (Diflucan) ibuprofen 600 mg tablet 600 mg PO Q6H PRN fever or pain 04/09/23 #30 tabs amoxicillin 875 mg-potassium 1 tab PO BID #14 tabs 05/16/23 clavulanate 125 mg tablet lidocaine 5 % topical patch 1 patch topical DAILY #15 ea 12/26/23 (Lidoderm) naproxen 500 mg tablet 500 mg PO Q8-12H PRN pain (scale 12/26/23 score 4-6) #10 tabs cyclobenzaprine 10 mg tablet 10 mg PO Q8H #20 tabs 02/11/24 ibuprofen 600 mg tablet 600 mg PO Q6H PRN fever or pain 02/11/24 #30 tabs dicyclomine 20 mg tablet 20 mg PO BID diarrhea #7 tabs 10/05/24 ondansetron HCl 4 mg tablet 4 mg PO Q8H PRN nausea and 10/05/24 vomiting #10 tabs dicyclomine 20 mg tablet 20 mg PO QID PRN abdominal pain 02/26/25 #14 tabs metoclopramide HCl 10 mg tablet 10 mg PO Q6H PRN nausea and 02/26/25 (Reglan) vomiting #14 tabs Allergies Allergy/AdvReac Type Severity Reaction Status Date / Time grapefruit [GRAPEFRUIT] Allergy Unknown ITCHY MOUTH Verified 02/26/25 16:38 orange [ORANGE] Allergy Unknown ITCHY MOUTH Verified 02/26/25 16:38 nitrofurantoin Allergy Vomiting Verified 02/26/25 16:38 [From Macrobid] pineapple Allergy Itching Verified 02/26/25 16:38 Review of Systems 2 Review of Systems: Yes all other systems are reviewed and are negative Constitutional: Constitutional: Denies fatigue and Denies fever(s) Cardiovascular: Cardiovascular: Denies chest pain and Denies dyspnea Respiratory: Respiratory: Denies dyspnea Gastrointestinal: Gastrointestinal: Denies abdominal pain, Denies constipation, Reports diarrhea, Reports nausea and Denies vomiting Endocrine: Endocrine: Denies fatigue PMFSH Past Medical History Attestation statement: The following information was validated with the patient. Medical History History of posttraumatic stress disorder (PTSD) Social phobia Depressed Insomnia No known health problems Social History Social History Alcohol intake: current Alcohol intake frequency: holidays/special occasions only Alcohol type: wine Substance Use Type: Marijuana Advance Directives: No Advance Directives Information Provided: No Do you have a plan to hurt others: No Plan Current occupation: [employer] Physical Exam ED Vital Signs: Vital Signs - 24 hr 02/26/25 16:36 02/26/25 17:57 02/26/25 18:37 Temperature 98 F 98.1 F 98.2 F Pulse Rate 90 72 75 Respiratory Rate 18 16 14 Blood Pressure 113/71 102/58 L 104/67 Pulse Oximetry 98 99 100 Oxygen Delivery Method Room Air Room Air Room Air 02/26/25 20:03 02/26/25 21:06 Temperature 98.2 F 98.0 F Pulse Rate 90 97 Respiratory Rate 16 16 Blood Pressure 99/69 113/75 Pulse Oximetry 97 98 Oxygen Delivery Method Room Air Room Air BMI result Body Mass Index 34.9 Const Other: Alert well-appearing Orientation/consciousness: patient oriented x3 Resp Effort & Inspection: normal respiratory effort Cardio Other: Normal peripheral perfusion Skin Other: Warm dry no rash Neuro General: patient oriented x3, gait normal, no focal motor deficits and CN's II- XI intact bilaterally Psych Other: Calm cooperative Course Course Course Narrative: RME, this is a rapid medical exam performed by Vadim Ramsey please refer to primary provider for complete H&P- 24 year old female presents for evaluation upper abdominal pain, nausea and vomiting. Symptoms are worse after eating.Plan for labs, ultrasound Medications Administered Discontinued Medications Generic Name Dose Route Start Last Admin Trade Name Freq PRN Reason Stop Dose Admin Dicyclomine HCl 20 mg 02/26/25 20:52 02/26/25 21:07 Dicyclomine Hcl 10 Mg Capsule PO 02/26/25 20:53 20 mg ONCE ONE Administration Sodium Chloride 1,000 mls @ 999 mls/hr 02/26/25 19:00 02/26/25 20:30 Ns IV 02/26/25 20:00 Infused .Q1H1M DEACON Infusion Metoclopramide HCl 10 mg 02/26/25 20:52 02/26/25 21:08 Metoclopramide Hcl 10 Mg Tablet PO 02/26/25 20:53 10 mg ONCE ONE Administration Ondansetron HCl 4 mg 02/26/25 18:51 02/26/25 18:57 Ondansetron Hcl 4 Mg/2 Ml Vial IVPUSH 02/26/25 18:52 4 mg ONCE ONE Administration Medical Decision Making Medical Decision Making [facility] Narrative: 24-year-old female presents with abdominal discomfort for a year. Patient states she frequently develops acute onset diarrhea every time she attempts to eat. At times, attempts to eat cause her to become nauseous, she feels as if she can not swallow the food. Patient has not followed up with her primary care provider. No change in symptoms. No true abdominal discomfort. Denies recent use of antibiotics, travel or hospitalization. No fevers. Problem: Chronic dietary issues History: Per patient I have considered the following differential diagnoses: Biliary colic, cholecystitis, gastritis, poorly controlled GERD, pancreatitis, pancreatic enzyme insufficiency, celiac Plan: Screening labs including an ultrasound of the upper abdomen were obtained from triage everything is negative. The patient could have dietary enzyme deficiencies, IBS etc., she needs an outpatient workup in Gastroenterology consult. We will be sending with dicyclomine and Reglan. Given duration of symptoms with normal labs, hemodynamically stable vitals and no abdominal pain I am not obtaining a CT scan of the abdomen as it is not clinically warranted. I have independently reviewed the following tests: Labs: No leukocytosis, not anemic, no electrolyte abnormality noted, not , LFTs are normal, viral panel negative, urine negative Ultrasound abdomen:MPRESSION: 1. No ultrasound findings of acute cholecystitis at this time. 2. Imaged CBD is nondilated Lab Data 02/26/25 17:50 02/26/25 17:49 Labs: Lab Results 02/26/25 02/26/25 02/26/25 Range/Units 17:49 17:50 17:56 WBC 9.5 (4.8-10.8) X10*3/uL RBC 4.59 (4.20-5.50) X10*6/uL Hgb 11.9 L (12.0-16.0) g/dl Hct 36.3 L (37.0-47.0) % MCV 79.1 L (80.0-98.0) fL MCH 25.9 L (27.0-33.0) pg MCHC 32.8 (31.0-35.0) g/dl RDW 13.0 (11.0-16.0) % Plt Count 255 (160-400) X10*3/uL MPV 9.4 (9.4-12.3) fL Immature Gran % (Auto) 0.4 (0.0-0.4) % Neut % (Auto) 65.4 (45-73) % Lymph % (Auto) 27.4 (20-40) % Howell % (Auto) 4.8 (2-11) % Eos % (Auto) 1.5 (0-4) % Baso % (Auto) 0.5 (0-2) % Lymph # (Auto) 2.6 (1.2-4.9) X10*3/uL Howell # (Auto) 0.5 (0.1-1.2) X10*3/uL Eos # (Auto) 0.1 (0.0-0.4) X10*3/uL Baso # (Auto) 0.1 (0.0-0.2) X10*3/uL Abs Immat Gran (auto) 0.04 H (0.00-0.03) X10*3/uL Absolute Neuts (auto) 6.2 (2.0-8.3) x10*3/uL Absolute Nucleated RBC 0.000 (0.0-0.012) X10*3/uL Nucleated RBC % (auto) 0.0 (0.0-0.2) /100WBC Sodium 139 (135-145) mmol/L Potassium 4.2 (3.3-5.1) mmol/L Chloride 106 (96-108) mmol/L Carbon Dioxide 27 (22-29) mmol/L Anion Gap 10 L (12-20) BUN 10 (9-16) mg/dL Creatinine 0.59 (0.5-1.4) mg/dL Estim Creat Clear Calc 145.6 Estimated GFR > 60 Random Glucose 94 (60-115) mg/dL Calcium 9.2 D (8.4-10.2) mg/dL Magnesium 2.1 (1.6-2.6) mg/dL Total Bilirubin 0.4 (0.0-1.0) mg/dL AST 19 (5-31) U/L ALT 17 (0-31) U/L Alkaline Phosphatase 55 (39-117) U/L Total Protein 7.0 (6.5-8.0) g/dL Albumin 4.3 (3.5-5.0) g/dL Lipase 47 (8-78) U/L Beta HCG, Quant < 2 mIU/mL Urine Color Yellow Urine Appearance Clear Urine pH 7.5 (5.0-9.0) Ur Specific Vida 1.010 (1.005-1.025) Urine Protein Negative (Neg-Trace) mg/dL Urine Glucose (UA) Negative (Negative) mg/dL Urine Ketones Negative (Negative) mg/dL Urine Blood Negative (Negative) Urine Nitrite Negative (Negative) Ur Leukocyte Esterase Negative (Negative) Urine RBC 0-2 (0-2) /HPF Urine WBC 0-5 (0-5) /HPF Ur Squamous Epith Cells 3-5 (0-2) /HPF Urine Bacteria 1+ (None Seen) Hyaline Casts 0-2 (0-2) /LPF Influenza Type A (PCR) NEGATIVE (Negative) Influenza Type B (PCR) NEGATIVE (Negative) RSV RNA Qual (PCR) NEGATIVE (Negative) SARS-CoV-2 RNA (RT-PCR) NEGATIVE (Negative) Discharge Plan Discharge Clinical Impression: Nausea, Diarrhea Patient Disposition: Home, Self-Care Instructions: Irritable Bowel Syndrome (ED), Chronic Diarrhea (ED) Additional Instructions: All of your screening labs were normal. The ultrasound of the upper abdomen was normal as well. You could have a digestive enzymes insufficiency causing your symptoms, you could also have celiac disease, you could have IBS. There are numerous dietary issues that could be causing your symptoms, you require an outpatient workup by primary care, with likely Gastroenterology consult. Use the Reglan as needed for nausea, use the dicyclomine as needed for abdominal discomfort and/or diarrhea. Prescriptions: New dicyclomine 20 mg tablet 20 mg PO QID PRN (Reason: abdominal pain) Qty: 14 0RF metoclopramide HCl [Reglan] 10 mg tablet 10 mg PO Q6H PRN (Reason: nausea and vomiting) Qty: 14 0RF No Action ondansetron 4 mg tablet,disintegrating 4 mg PO Q6-8H PRN (Reason: nausea and vomiting) Qty: 7 0RF metronidazole 500 mg tablet 500 mg PO BID 7 Days Qty: 14 0RF fluconazole [Diflucan] 150 mg tablet 150 mg PO Q3D Qty: 2 0RF Rx Instructions: may repeat second dose 72 hrs after first dose if symptoms persist lidocaine [Lidoderm] 5 % adhesive patch,medicated 1 patch topical DAILY Qty: 15 0RF Rx Instructions: leave on most painful area for up to 12 hrs naproxen 500 mg tablet 500 mg PO Q8-12H PRN (Reason: pain (scale score 4-6)) Qty: 10 0RF cyclobenzaprine 10 mg tablet 10 mg PO Q8H Qty: 20 0RF ibuprofen 600 mg tablet 600 mg PO Q6H PRN (Reason: fever or pain) Qty: 30 0RF ondansetron HCl 4 mg tablet 4 mg PO Q8H PRN (Reason: nausea and vomiting) Qty: 10 0RF dicyclomine 20 mg tablet 20 mg PO BID Qty: 7 0RF ibuprofen 600 mg tablet 600 mg PO Q6H PRN (Reason: fever or pain) Qty: 30 0RF amoxicillin-pot clavulanate 875-125 mg tablet 1 tab PO BID Qty: 14 0RF cetirizine 10 mg tablet 10 mg PO DAILY norgestimate-ethinyl estradiol 0.25-35 mg-mcg tablet 1 tab PO DAILY clonidine HCl 0.1 mg tablet 0.1 mg PO BID Print Language: Panamanian
[2025-02-26 17:56] LABS: MANUAL DIFF FLAG NO
[2025-02-26 17:57] VITALS: BP 102/58; PULSE 72; RESP 16; TEMP 36.7; O2SAT 99
[2025-02-26 18:00] LABS: Basophils Absolute Auto 0.1 X10*3/uL (0.0-0.2); Basophils Percent Auto 0.5 % (0-2); Eosinophils Absolute Auto 0.1 X10*3/uL (0.0-0.4); Eosinophils Percent Auto 1.5 % (0-4); Hematocrit 36.3 % (37.0-47.0); Hemoglobin 11.9 g/dl (12.0-16.0); Imm Gran Abs Auto 0.04 X10*3/uL (0.00-0.03); Imm Gran Pct Auto 0.4 % (0.0-0.4); Lymphocytes Absolute Auto 2.6 X10*3/uL (1.2-4.9); Lymphocytes Percent Auto 27.4 % (20-40); Mean Corpuscular HGB Conc 32.8 g/dl (31.0-35.0); Mean Corpuscular Hemoglobin 25.9 pg (27.0-33.0); Mean Corpuscular Volume 79.1 fL (80.0-98.0); Mean Platelet Volume 9.4 fL (9.4-12.3); Monocytes Absolute Auto 0.5 X10*3/uL (0.1-1.2); Monocytes Percent Auto 4.8 % (2-11); Neutrophils Absolute Auto 6.2 x10*3/uL (2.0-8.3); Neutrophils Percent Auto 65.4 % (45-73); Platelet Count 255 X10*3/uL (160-400); Red Blood Count 4.59 X10*6/uL (4.20-5.50); White Blood Count 9.5 X10*3/uL (4.8-10.8)
[2025-02-26 18:05] LABS: Appearance Urine Clear; Color Urine Yellow; Glucose Urine UA Negative (Negative); Leukocyte Esterase Urine Negative (Negative); Nitrite Urine Negative (Negative); PH 7.5 (5.0-9.0); Urine Blood Negative (Negative); Urine Ketones Negative (Negative); Urine Protein Negative (Neg-Trace)
[2025-02-26 18:08] LABS: Bacteria Urine 1+ (None Seen); Hyaline Casts Urine 0-2 /LPF (0-2); RBC Urine 0-2 /HPF (0-2); WBC Urine 0-5 /HPF (0-5)
[2025-02-26 18:12] LABS: Alanine Aminotransferase 17 U/L (0-31); Albumin Level 4.3 g/dL (3.5-5.0); Alkaline Phosphatase 55 U/L (39-117); Anion Gap 10 (12-20); Aspartate Amino Transferase 19 U/L (5-31); Bilirubin Total 0.4 mg/dL (0.0-1.0); Blood Urea Nitrogen 10 mg/dL (9-16); Calcium 9.2 mg/dL (8.4-10.2); Carbon Dioxide 27 mmol/L (22-29); Chloride 106 mmol/L (96-108); Creatinine Clr Calc Pharmacy 145.6; Estimated Glomerular Filt Rate > 60; Glucose Random 94 mg/dL (60-115); Lipase 47 U/L (8-78); Magnesium 2.1 mg/dL (1.6-2.6); Potassium 4.2 mmol/L (3.3-5.1); Sodium 139 mmol/L (135-145)
[2025-02-26 18:22] LABS: HCG Quantitative < 2 mIU/mL
[2025-02-26 18:37] VITALS: BP 104/67; PULSE 75; RESP 14; TEMP 36.8; O2SAT 100
[2025-02-26 18:38] LABS: Influenza A PCR NEGATIVE (Negative); Influenza B PCR NEGATIVE (Negative); Resp Syncy Virus RNA Qual PCR NEGATIVE (Negative); SARS COV2 PCR INHOUSE NEGATIVE (Negative)
[2025-02-26] MEDS: ondansetron HCL 4 MG/2 ML VIAL IVPUSH (18:57)
[2025-02-26] MEDS: 0.9 % Sodium Chloride 1,000 ML 999 ML IV (18:58)
[2025-02-26 20:03] VITALS: BP 99/69; PULSE 90; RESP 16; TEMP 36.8; O2SAT 97
[2025-02-26 21:06] VITALS: BP 113/75; PULSE 97; RESP 16; TEMP 36.7; O2SAT 98
[2025-02-26] MEDS: Dicyclomine HCl 10 MG CAPSULE 20 MG PO (21:07)
[2025-02-26] MEDS: Metoclopramide HCl 10 MG TABLET PO (21:08)
[2025-02-26 21:24] VITALS: BP 113/75; PULSE 97; RESP 16; TEMP 36.7; O2SAT 98
== END 2025-02-26 21:24 | disposition home or self-care (01) ==
PROVIDERS: Physician Assistant; Emergency Provider Emergency Medicine; PCP General Practice
DX: R19.7 Diarrhea, unspecified (principal); R11.2 Nausea with vomiting, unspecified; R10.11 Right upper quadrant pain; Z03.818 Encounter for observation for suspected exposure to other biological agents ruled out; F12.90 Cannabis use, unspecified, uncomplicated; Z79.899 Other long term (current) drug therapy
CPT/HCPCS: 0241U; 36415; 76705; 80053; 81001; 83690; 83735; 84702; 85025; 96361; 96374; 99284; 99285; J2405

== ENCOUNTER → 2025-02-26 16:36 | Outpatient (BNV) | payer MEDICAID, SELFPAY | PROVIDERS: PCP General Practice; Visit Provider Radiology Neuroradiology | DX: R10.11 Right upper quadrant pain (principal) | CPT/HCPCS: 76705 ==

== ENCOUNTER 2025-03-14 14:45 | Emergency (ER) | payer MEDICAID, SELFPAY ==
--- OUTSIDE RECORDS SUMMARY | 2025-03-14 18:51 | XMS_ITS | Encounter Summary ---
Author Organization [facility] Address [address] [place] [phone] Phone Care Team Providers Care Outbound Sales Advisor Name Role Phone Provider, Fracisco MALIK Primary Care Provider [phone] Encounter Details Date Type Department Care Team (Late st Contact Info) Description 05/20/2017 Conversion Encounter [facility] [place] [address] [place] [address] Social History Tobacco Use Types Packs/Day Years [...] on filedocumented in this encounter Care Teams Outbound Sales Advisor Relationship Specialty Start Date End Date Provider, MD Fracisco [address] [place] [id number] PCP - General Pediatrics 07/02/21 11/05/21 documented as of this encounter
[2025-03-14 20:02] VITALS: BP 139/84; PULSE 81; RESP 18; TEMP 36.6; O2SAT 100; BMI 34.6
[2025-03-14 21:04] LABS: COVID-19 Test Negative (Negative); IDNOW Serial# 55D5AD1C; IDNOW Serial# 58CA691E; Strep A Nucleic Acid Negative (Negative)
--- NOTE | 2025-03-14 23:48 | ED_ITS ---
HPI - Ear Problem General Chief complaint: Ear Problems Stated complaint: ear ache Time Seen by Provider: 03/14/25 23:48 Related Data Home Medications ?Medication ?Instructions ?Recorded ?Confirmed cetirizine 10 mg tablet 10 mg PO DAILY 07/20/22 clonidine HCl 0.1 mg tablet 0.1 mg PO BID 07/20/22 norgestimate 0.25 mg-ethinyl 1 tab PO DAILY 07/20/22 estradiol 0.035 mg tablet Previous Rx's ?Medication ?Instructions ?Recorded ondansetron 4 mg disintegrating 4 mg PO Q6-8H PRN nausea and 09/23/20 tablet vomiting #7 tabs metronidazole 500 mg tablet 500 mg PO BID 7 days #14 tabs 05/18/22 fluconazole 150 mg tablet 150 mg PO Q3D 2 doses #2 tabs 05/19/22 (Diflucan) ibuprofen 600 mg tablet 600 mg PO Q6H PRN fever or pain 04/09/23 #30 tabs amoxicillin 875 mg-potassium 1 tab PO BID #14 tabs 05/16/23 clavulanate 125 mg tablet lidocaine 5 % topical patch 1 patch topical DAILY #15 ea 12/26/23 (Lidoderm) naproxen 500 mg tablet 500 mg PO Q8-12H PRN pain (scale 12/26/23 score 4-6) #10 tabs cyclobenzaprine 10 mg tablet 10 mg PO Q8H #20 tabs 02/11/24 ibuprofen 600 mg tablet 600 mg PO Q6H PRN fever or pain 02/11/24 #30 tabs dicyclomine 20 mg tablet 20 mg PO BID diarrhea #7 tabs 10/05/24 ondansetron HCl 4 mg tablet 4 mg PO Q8H PRN nausea and 10/05/24 vomiting #10 tabs dicyclomine 20 mg tablet 20 mg PO QID PRN abdominal pain 02/26/25 #14 tabs metoclopramide HCl 10 mg tablet 10 mg PO Q6H PRN nausea and 02/26/25 (Reglan) vomiting #14 tabs Allergies Allergy/AdvReac Type Severity Reaction Status Date / Time grapefruit [GRAPEFRUIT] Allergy Unknown ITCHY MOUTH Verified 03/14/25 20:03 orange [ORANGE] Allergy Unknown ITCHY MOUTH Verified 03/14/25 20:03 nitrofurantoin Allergy Vomiting Verified 03/14/25 20:03 [From Macrobid] pineapple Allergy Itching Verified 03/14/25 20:03 PMFSH Past Medical History Medical History History of posttraumatic stress disorder (PTSD) Social phobia Depressed Insomnia No known health problems Social History Social History Alcohol intake: current Alcohol intake frequency: holidays/special occasions only Alcohol type: wine Substance Use Type: Marijuana Advance Directives: No Advance Directives Information Provided: No Current occupation: [employer] Physical Exam Vital Signs: Vital Signs: Last Vital Signs Temp 98 F 03/14/25 20:02 Pulse 81 03/14/25 20:02 Resp 18 03/14/25 20:02 BP 139/84 03/14/25 20:02 Pulse Ox 100 03/14/25 20:02 O2 Del Method Room Air 03/14/25 20:02 BMI result Body Mass Index 34.6 Medical Decision Making Lab Data Labs: Lab Results 03/14/25 Range/Units 20:08 COVID-19 (NAKIA) Negative (Negative) COVID-19 Clin Com See Note S. pyogenes GrpA JAISON Negative (Negative) Discharge Plan Discharge Prescriptions: No Action ondansetron 4 mg tablet,disintegrating 4 mg PO Q6-8H PRN (Reason: nausea and vomiting) Qty: 7 0RF metronidazole 500 mg tablet 500 mg PO BID 7 Days Qty: 14 0RF fluconazole [Diflucan] 150 mg tablet 150 mg PO Q3D Qty: 2 0RF Rx Instructions: may repeat second dose 72 hrs after first dose if symptoms persist lidocaine [Lidoderm] 5 % adhesive patch,medicated 1 patch topical DAILY Qty: 15 0RF Rx Instructions: leave on most painful area for up to 12 hrs naproxen 500 mg tablet 500 mg PO Q8-12H PRN (Reason: pain (scale score 4-6)) Qty: 10 0RF cyclobenzaprine 10 mg tablet 10 mg PO Q8H Qty: 20 0RF ibuprofen 600 mg tablet 600 mg PO Q6H PRN (Reason: fever or pain) Qty: 30 0RF ondansetron HCl 4 mg tablet 4 mg PO Q8H PRN (Reason: nausea and vomiting) Qty: 10 0RF dicyclomine 20 mg tablet 20 mg PO BID Qty: 7 0RF ibuprofen 600 mg tablet 600 mg PO Q6H PRN (Reason: fever or pain) Qty: 30 0RF amoxicillin-pot clavulanate 875-125 mg tablet 1 tab PO BID Qty: 14 0RF dicyclomine 20 mg tablet 20 mg PO QID PRN (Reason: abdominal pain) Qty: 14 0RF metoclopramide HCl [Reglan] 10 mg tablet 10 mg PO Q6H PRN (Reason: nausea and vomiting) Qty: 14 0RF cetirizine 10 mg tablet 10 mg PO DAILY norgestimate-ethinyl estradiol 0.25-35 mg-mcg tablet 1 tab PO DAILY clonidine HCl 0.1 mg tablet 0.1 mg PO BID Interventions: DAWSON Worksheet Last Done: 03/14/25 17:05 Print Language: Macedonian
--- NOTE | 2025-03-14 23:49 | ED_ITS ---
HPI - URI/Sore Throat General Chief Complaint: Ear Problems Stated Complaint: ear ache Time Seen by Provider: 03/14/25 23:48 Source: patient Mode of arrival: ambulatory Limitations: no limitations History of Present Illness ED Provider: tonia del castillo np HPI Narrative: Patient is a 24-year-old female who presents emergency department for evaluation. She reports about 6 days ago she was exposed to somebody who was COVID-19 positive. She has since been experiencing headache, sore throat, bilateral ear pain with muffled hearing. She presented 2 days ago to a walk-in clinic and states that she was told she had viral pharyngitis who was discharged home. She states that over the past 2 days she has been having severe pain to the right ear and states that she had a fever last night. She admits to a history of multiple ear infections last year. Denies any drainage from the ear. Denies associated chills, headache, dizziness, neck stiffness, neck pain, chest pain, shortness of breath, difficulty breathing, nausea, vomiting, abdominal pain. Related Data Home Medications ?Medication ?Instructions ?Recorded ?Confirmed cetirizine 10 mg tablet 10 mg PO DAILY 07/20/22 clonidine HCl 0.1 mg tablet 0.1 mg PO BID 07/20/22 norgestimate 0.25 mg-ethinyl 1 tab PO DAILY 07/20/22 estradiol 0.035 mg tablet Previous Rx's ?Medication ?Instructions ?Recorded ondansetron 4 mg disintegrating 4 mg PO Q6-8H PRN nausea and 09/23/20 tablet vomiting #7 tabs metronidazole 500 mg tablet 500 mg PO BID 7 days #14 tabs 05/18/22 fluconazole 150 mg tablet 150 mg PO Q3D 2 doses #2 tabs 05/19/22 (Diflucan) ibuprofen 600 mg tablet 600 mg PO Q6H PRN fever or pain 04/09/23 #30 tabs amoxicillin 875 mg-potassium 1 tab PO BID #14 tabs 05/16/23 clavulanate 125 mg tablet lidocaine 5 % topical patch 1 patch topical DAILY #15 ea 12/26/23 (Lidoderm) naproxen 500 mg tablet 500 mg PO Q8-12H PRN pain (scale 12/26/23 score 4-6) #10 tabs cyclobenzaprine 10 mg tablet 10 mg PO Q8H #20 tabs 02/11/24 ibuprofen 600 mg tablet 600 mg PO Q6H PRN fever or pain 02/11/24 #30 tabs dicyclomine 20 mg tablet 20 mg PO BID diarrhea #7 tabs 10/05/24 ondansetron HCl 4 mg tablet 4 mg PO Q8H PRN nausea and 10/05/24 vomiting #10 tabs dicyclomine 20 mg tablet 20 mg PO QID PRN abdominal pain 02/26/25 #14 tabs metoclopramide HCl 10 mg tablet 10 mg PO Q6H PRN nausea and 02/26/25 (Reglan) vomiting #14 tabs amoxicillin 875 mg-potassium 1 tab PO BID #14 tabs 03/15/25 clavulanate 125 mg tablet Allergies Allergy/AdvReac Type Severity Reaction Status Date / Time grapefruit [GRAPEFRUIT] Allergy Unknown ITCHY MOUTH Verified 03/14/25 20:03 orange [ORANGE] Allergy Unknown ITCHY MOUTH Verified 03/14/25 20:03 nitrofurantoin Allergy Vomiting Verified 03/14/25 20:03 [From Macrobid] pineapple Allergy Itching Verified 03/14/25 20:03 Review of Systems Review of Systems: Yes all other systems are reviewed and are negative PMFSH Past Medical History Attestation statement: The following information was validated with the patient. Source: old records reviewed Medical History History of posttraumatic stress disorder (PTSD) Social phobia Depressed Insomnia No known health problems Social History Social History Alcohol intake: current Alcohol intake frequency: holidays/special occasions only Alcohol type: wine Substance Use Type: Marijuana Advance Directives: No Advance Directives Information Provided: No Current occupation: [employer] Physical Exam Vital Signs: Vital Signs: Last Vital Signs Temp 98 F 03/14/25 20:02 Pulse 81 03/14/25 20:02 Resp 18 03/14/25 20:02 BP 139/84 03/14/25 20:02 Pulse Ox 100 03/14/25 20:02 O2 Del Method Room Air 03/14/25 20:02 BMI result Body Mass Index 34.6 Appearance: Alert.?Oriented to person, place and time. No acute distress.?Normal affect. Eyes: Pupils equal, round and reactive to light.? ENT: TM on the left is slightly erythematous with mild bulging no opacity. TM on the right is significantly erythematous bulging with presence of an opacity. There was no mastoid tenderness. Pharynx mildly erythematous without exudates. Uvula is midline. No trismus. No drooling. Neck: Normal inspection.? Neck supple.??No cervical adenopathy CVS: Heart sounds normal. Normal heart rate and rhythm.? Pulses normal.?? Respiratory: No respiratory distress.? Lung sounds clear to auscultation bilaterally?? Abdomen: Soft and non-tender. Normoactive bowel sounds. Skin: Skin warm and dry.? Normal skin color.? ? Extremities: No lower extremity edema.? Neuro: Moves all extremities spontaneously. Sensation intact bilaterally. No motor deficits. Ambulates with normal steady gait. Medical Decision Making Medical Decision Making [facility] Narrative: Patient is a 44-year-old female who presents emergency department for evaluation of headache which has since resolved, sore throat, bilateral ear pain and muffled hearing as per HPI. On examination does not have findings consistent with otitis externa. Exam is concerning for acute otitis media particularly on the right, perhaps mildly on the left. No mastoid tenderness to suggest acute mastoiditis. She will be started on a course of antibiotics. She has a mild pharyngitis but no evidence of [employer]. COVID-19 testing is negative. Group a strep testing is negative. At this time history and physical exam not consistent with pneumonia. Previously had a headache which has since resolved, no nuchal rigidity, do not suspect meningitis. Overall she is Well-appearing, nontoxic, afebrile, no tachycardia or tachypnea/hypoxia. Speaking clear full sentences, ambulatory with steady gait. Discussed conservative treatment including rest, hydration, Tylenol/ibuprofen as needed for fever and body aches, saline nasal spray, humidifier, tpfe-ykm-wgzmhmn cold medication. Advised to follow-up with primary care provider as needed, discussed reasons to return back to the emergency department. All questions were answered. Patient discharged home in stable condition. Differential Diagnosis Differential Diagnoses: The differential diagnosis associated with the presentation includes ( See narrative above) Admission/Observation Consideration of admission/observation: Escalation of care including admission/observation considered ( see narrative above) Lab Data MDM Lab Attestation statement: I reviewed the patient's lab results. ( see narrative above) Labs: Lab Results 03/14/25 Range/Units 20:08 COVID-19 (NAKIA) Negative (Negative) COVID-19 Clin Com See Note S. pyogenes GrpA JAISON Negative (Negative) Independent Historian Clinical information obtained from an independent historian. History obtained from or confirmed by: Parent External Record Review External record reviewed: Outpatient record Prescription Management I considered prescription management with: Pain Medication ( acetaminophen/ibuprofen) and Antibiotic Discharge Plan Discharge Clinical Impression: Otitis media Patient Disposition: Home, Self-Care Instructions: Ear Infection (ED) Additional Instructions: For a bacterial ear infection on the right side as discussed, there is concern for a bacterial infection to your right ear, for which an antibiotic has been sent to your pharmacy. Please complete the entire course not skip any doses or stop taking early even if you begin to feel better. It is very important to use a back-up form of control, such as barrier condoms/abstinence, while on antibiotics and for one week after as they may be ineffective in preventing while on the antibiotics. While taking antibiotics, please include probiotics that can be found over the counter or yogurt in your diet. If symptoms of a yeast infection or diarrhea occur, please seek evaluation. Be sure to rest, stay well hydrated drinking plenty of fluids, eat small frequent meals. Tylenol/ibuprofen can be used as needed for fever/pain. Gtfl-ikb-yftprla cold medications may be helpful as well for symptoms. Saline nasal spray, humidifier may be helpful for nasal congestion. You may return to the emergency department with any new or worsening symptoms or concerns. Follow-up with your primary care provider as needed. Should remain out of school/ work until symptoms have resolved and have been without a fever for 24 hours without the use of Tylenol or ibuprofen. Prescriptions: New amoxicillin-pot clavulanate 875-125 mg tablet 1 tab PO BID Qty: 14 0RF No Action ondansetron 4 mg tablet,disintegrating 4 mg PO Q6-8H PRN (Reason: nausea and vomiting) Qty: 7 0RF metronidazole 500 mg tablet 500 mg PO BID 7 Days Qty: 14 0RF fluconazole [Diflucan] 150 mg tablet 150 mg PO Q3D Qty: 2 0RF Rx Instructions: may repeat second dose 72 hrs after first dose if symptoms persist lidocaine [Lidoderm] 5 % adhesive patch,medicated 1 patch topical DAILY Qty: 15 0RF Rx Instructions: leave on most painful area for up to 12 hrs naproxen 500 mg tablet 500 mg PO Q8-12H PRN (Reason: pain (scale score 4-6)) Qty: 10 0RF cyclobenzaprine 10 mg tablet 10 mg PO Q8H Qty: 20 0RF ibuprofen 600 mg tablet 600 mg PO Q6H PRN (Reason: fever or pain) Qty: 30 0RF ondansetron HCl 4 mg tablet 4 mg PO Q8H PRN (Reason: nausea and vomiting) Qty: 10 0RF dicyclomine 20 mg tablet 20 mg PO BID Qty: 7 0RF ibuprofen 600 mg tablet 600 mg PO Q6H PRN (Reason: fever or pain) Qty: 30 0RF amoxicillin-pot clavulanate 875-125 mg tablet 1 tab PO BID Qty: 14 0RF dicyclomine 20 mg tablet 20 mg PO QID PRN (Reason: abdominal pain) Qty: 14 0RF metoclopramide HCl [Reglan] 10 mg tablet 10 mg PO Q6H PRN (Reason: nausea and vomiting) Qty: 14 0RF cetirizine 10 mg tablet 10 mg PO DAILY norgestimate-ethinyl estradiol 0.25-35 mg-mcg tablet 1 tab PO DAILY clonidine HCl 0.1 mg tablet 0.1 mg PO BID Stand Alone Forms: Work/School Release Interventions: DAWSON Worksheet Last Done: 03/14/25 17:05 Discharge Date/Time: 03/15/25 00:22 Print Language: Romansh
== END 2025-03-15 00:22 | disposition home or self-care (01) ==
PROVIDERS: Emergency Provider Emergency Medicine
DX: H66.93 Otitis media, unspecified, bilateral (principal); R51.9 Headache, unspecified; J02.9 Acute pharyngitis, unspecified; H92.03 Otalgia, bilateral; Z03.818 Encounter for observation for suspected exposure to other biological agents ruled out
CPT/HCPCS: 87635; 87651; 99281; 99283

== ENCOUNTER 2025-03-28 15:02 | Outpatient (REF) | payer MEDICAID, SELFPAY ==
--- OUTSIDE RECORDS SUMMARY | 2025-03-28 17:57 | XMS_ITS | Encounter Summary ---
Author Organization [facility] Address [address] [place] [phone] Phone Care Team Providers Care Manager Web Name Role Phone Provider, Fracisco MALIK Primary Care Provider [phone] Encounter Details Date Type Department Care Team (Late st Contact Info) Description 11/15/2014 Documentation [facility] Family Medicine [address] [place] [address] Family Medicine, Physician [address] [place] [id number] Social History Tobacco Use Types Packs/Day Years [...] on filedocumented in this encounter Care Teams Manager Web Relationship Specialty Start Date End Date Provider, MD Fracisco [address] [place] [phone] PCP - General Pediatrics 07/02/21 11/05/21 documented as of this encounter
[2025-03-29 22:39] LABS: Immunoglobulin A 174 mg/dL (47-310); Transglutaminase IgA <1.0 U/mL
== END 2025-03-28 15:03 | disposition home or self-care (01) ==
LOC: HO.HHCL 15:02
PROVIDERS: PCP General Practice; Visit Provider Internal Medicine
DX: K52.9 Noninfective gastroenteritis and colitis, unspecified (principal)
CPT/HCPCS: 36415; 82784; 86364

== ENCOUNTER 2025-04-22 16:18 | Emergency (ER) | payer MEDICAID, SELFPAY ==
[2025-04-22 16:52] VITALS: BP 139/71; PULSE 82; RESP 16; TEMP 36.1; O2SAT 100; BMI 31.6
--- NOTE | 2025-04-22 16:54 | ED_ITS ---
HPI - General Adult General Chief complaint: Nausea/Vomiting/Diarrhea Stated complaint: vomitting Time Seen by Provider: 04/22/25 18:40 Source: patient Limitations: no limitations History of Present Illness ED Provider: Dora Brown PA-C HPI narrative: 25-year-old female who recently discovered she is , presents with nausea vomiting x2 days. Associated constipation, having minimal bowel movements. Denies distention or inability to pass flatus. 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 Denies vaginal bleeding. Related Data Home Medications ?Medication ?Instructions ?Recorded ?Confirmed cetirizine 10 mg tablet 10 mg PO DAILY 07/20/22 clonidine HCl 0.1 mg tablet 0.1 mg PO BID 07/20/22 norgestimate 0.25 mg-ethinyl 1 tab PO DAILY 07/20/22 estradiol 0.035 mg tablet Previous Rx's ?Medication ?Instructions ?Recorded ondansetron 4 mg disintegrating 4 mg PO Q6-8H PRN naus ea and 09/23/20 tablet vomiting #7 tabs metronidazole 500 mg tablet 500 mg PO BID 7 days #14 t abs 05/18/22 fluconazole 150 mg tablet 150 mg PO Q3D 2 doses #2 tab s 05/19/22 (Diflucan) ibuprofen 600 mg tablet 600 mg PO Q6H PRN fever or p ain 04/09/23 #30 tabs amoxicillin 875 mg-potassium 1 tab PO BID #14 tabs clavulanate 125 mg tablet lidocaine 5 % topical patch 1 patch topical DAILY #15 ea 12/26/23 (Lidoderm) naproxen 500 mg tablet 500 mg PO Q8-12H PRN pain (s mavis 12/26/23 score 4-6) #10 tabs cyclobenzaprine 10 mg tablet 10 mg PO Q8H #20 tabs 07/27 ibuprofen 600 mg tablet 600 mg PO Q6H PRN fever or p ain 02/11/24 #30 tabs dicyclomine 20 mg tablet 20 mg PO BID diarrhea #7 tab s 10/05/24 ondansetron HCl 4 mg tablet 4 mg PO Q8H PRN nausea and 10/05/24 vomiting #10 tabs dicyclomine 20 mg tablet 20 mg PO QID PRN abdominal p ain 02/26/25 #14 tabs metoclopramide HCl 10 mg tablet 10 mg PO Q6H PRN nause a and 02/26/25 (Reglan) vomiting #14 tabs amoxicillin 875 mg-potassium 1 tab PO BID #14 tabs 09/27 clavulanate 125 mg tablet ondansetron 4 mg disintegrating 4 mg PO Q8H PRN nausea and 04/22/25 tablet vomiting #12 tabs pyridoxine (vitamin B6) 25 mg 25 mg PO BID PRN nausea and 04/22/25 tablet vomiting #10 tabs Allergies Allergy/AdvReac Type Severity Reaction Status Date / Time grapefruit (GRAPEFRUIT) Allergy Unknown ITCHY MOUTH Verified 04/22/25 17:03 orange (ORANGE) Allergy Unknown ITCHY MOUTH Verified 04/22/25 17:03 nitrofurantoin (From Allergy Vomiting Verified 04/22/25 17:03 Macrobid) pineapple Allergy Itching Verified 04/22/25 17:03 Review of Systems 2 Review of Systems: Yes all other systems are reviewed and are negative Constitutional: Constitutional: Denies fatigue and Denies fever(s) Cardiovascular: Cardiovascular: Denies chest pain and Denies dyspnea Respiratory: Respiratory: Denies dyspnea Gastrointestinal: Gastrointestinal: Reports abdominal pain, Denies bloating, Reports constipation, Denies diarrhea, Reports nausea and Reports vomiting Genitourinary: Genitourinary: Denies pelvic pain and Denies vaginal discharge Endocrine: Endocrine: Denies fatigue PMFSH Past Medical History Attestation statement: The following information was validated with the patient. Medical History History of posttraumatic stress disorder (PTSD) Social phobia Depressed Insomnia No known health problems Social History Social History Alcohol intake: current Alcohol intake frequency: holidays/special occasions only Alcohol type: wine Smoked in Last 30 Days: Yes Substance Use Type: Marijuana Advance Directives: No Advance Directives Information Provided: No Do you have a plan to hurt others: No Plan Current occupation: [employer] Physical Exam ED Exam Exam: Alert well-appearing Vital Signs: Vital Signs - 24 hr 04/22/25 16:52 04/22/25 17:57 Temperature 96.9 F Pulse Rate 82 69 Respiratory Rate 16 14 Blood Pressure 139/71 106/61 Pulse Oximetry 100 99 Oxygen Delivery Method Room Air Room Air BMI result Body Mass Index 31.6 Const Orientation/consciousness: patient oriented x3 Resp Effort & Inspection: normal respiratory effort Cardio Other: Normal peripheral perfusion Skin Other: Warm dry no rash Neuro General: patient oriented x3, gait normal, no focal motor deficits and CN's II- XI intact bilaterally Psych Other: Cooperative Course Course Course Narrative: Jen Shearer 04/22 1656 This is a rapid medical exam. Deferred additional HPI, ROS, PE to primary provider. 25 yo female here with vomiting, 7 weeks , [facility] No abdominal pain, vaginal bleeding. Will give Sl zofran, obtain labs, UA VSS Reevaluation(s) Reevaluation #1: Patient feeling better, she is eager for discharge she states she wants to eat we will discharge now Medications Administered Discontinued Medications Generic Name Dose Route Start Last Admin Trade Name Raleighq PRN Reason Stop Dose Admin Sodium Chloride 1,000 mls @ 999 mls/hr 04/22/25 18:45 04/22/25 20:53 Ns IV 04/22/25 19:45 Infused .Q1H1M DEACON Infusion Ondansetron HCl 4 mg 04/22/25 16:54 04/22/25 17:28 Ondansetron Odt 4 Mg Tab.Rapdis TRANSLINGU 04/22/25 16:55 4 mg ONCE ONE Administration Ondansetron HCl 4 mg 04/22/25 18:43 04/22/25 18:54 Ondansetron Hcl 4 Mg/2 Ml Vial IVPUSH 04/22/25 18:44 4 mg ONCE ONE Administration Pyridoxine HCl 50 mg 04/22/25 18:43 04/22/25 19:15 Pyridoxine Hcl (Vitamin B6) 50 Mg Tablet PO 04/22/25 18:44 50 mg ONCE ONE Administration Medical Decision Making Medical Decision Making [facility] Narrative: 25-year-old female who recently discovered she is , presents with nausea vomiting x2 days. Associated constipation, having minimal bowel movements. Denies distention or inability to pass flatus. 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 Denies vaginal bleeding. Problem: Early History: Per patient I have considered the following differential diagnoses: Constipation, bowel obstruction, symptoms really , threatened , hyperemesis gravidarum Plan: Screening labs already ordered from triage, there were no acute abnormalities, the patient is not having any relations specialist related symptoms, I do not have concern for threatened . She has morning sickness and she is constipated, without exam findings or symptoms that would be concerning for an obstruction. We will be giving milk of magnesia, Zofran, B6 and fluid I have independently reviewed the following tests: Labs: Slight leukocytosis, not anemic, no electrolyte abnormality noted, quant 110,381 Lab Data 04/22/25 17:06 04/22/25 17:06 Labs: Lab Results 04/22/25 Range/Units 17:06 WBC 13.4 H (4.8-10.8) X10*3/uL RBC 4.90 (4.20-5.50) X10*6/uL Hgb 13.2 (12.0-16.0) g/dl Hct 37.9 (37.0-47.0) % MCV 77.3 L (80.0-98.0) fL MCH 26.9 L (27.0-33.0) pg MCHC 34.8 (31.0-35.0) g/dl RDW 13.5 (11.0-16.0) % Plt Count 308 (160-400) X10*3/uL MPV 9.8 (9.4-12.3) fL Immature Gran % (Auto) 0.2 (0.0-0.4) % Neut % (Auto) 79.8 H (45-73) % Lymph % (Auto) 15.0 L (20-40) % [place] % (Auto) 4.5 (2-11) % Eos % (Auto) 0.1 (0-4) % Baso % (Auto) 0.4 (0-2) % Lymph # (Auto) 2.0 (1.2-4.9) X10*3/uL [place] # (Auto) 0.6 (0.1-1.2) X10*3/uL Eos # (Auto) 0.0 (0.0-0.4) X10*3/uL Baso # (Auto) 0.1 (0.0-0.2) X10*3/uL Abs Immat Gran (auto) 0.03 (0.00-0.03) X10*3/uL Absolute Neuts (auto) 10.7 H (2.0-8.3) x10*3/uL Absolute Nucleated RBC 0.000 (0.0-0.012) X10*3/uL Nucleated RBC % (auto) 0.0 (0.0-0.2) /100WBC Sodium 141 (135-145) mmol/L Potassium 4.0 (3.3-5.1) mmol/L Chloride 104 (96-108) mmol/L Carbon Dioxide 25 (22-29) mmol/L Anion Gap 16 (12-20) BUN 6 L (9-16) mg/dL Creatinine 0.59 (0.5-1.4) mg/dL Estim Creat Clear Calc 159.4 Estimated GFR > 60 Random Glucose 86 (60-115) mg/dL Calcium 9.8 D (8.4-10.2) mg/dL Total Bilirubin 0.7 (0.0-1.0) mg/dL Direct Bilirubin 0.4 (0.0-0.5) mg/dL AST 35 H (5-31) U/L ALT 77 H (0-31) U/L Alkaline Phosphatase 69 (39-117) U/L Total Protein 7.7 (6.5-8.0) g/dL Albumin 4.8 (3.5-5.0) g/dL Beta HCG, Quant [id number] mIU/mL Discharge Plan Discharge Clinical Impression: Constipation, and not yet delivered in first trimester, Morning sickness Patient Disposition: Home, Self-Care Instructions: (ED), Hyperemesis Gravidarum (ED), Constipation (ED) Additional Instructions: All of your labs were normal, your symptoms are likely secondary to your early and the fact that you are constipated. See home care instructions. You can use [id number] milk of magnesia per package instructions for the constipation, this medication is safe in . Uses Zofran as needed for nausea. Take the vitamin B6 daily to help prevent nausea. Keep your pending follow up appointment with your manager relocation. Prescriptions: New ondansetron 4 mg tablet,disintegrating 4 mg PO Q8H PRN (Reason: nausea and vomiting) Qty: 12 0RF pyridoxine (vitamin B6) 25 mg tablet 25 mg PO BID PRN (Reason: nausea and vomiting) Qty: 10 0RF No Action ondansetron 4 mg tablet,disintegrating 4 mg PO Q6-8H PRN (Reason: nausea and vomiting) Qty: 7 0RF metronidazole 500 mg tablet 500 mg PO BID 7 Days Qty: 14 0RF fluconazole [Diflucan] 150 mg tablet 150 mg PO Q3D Qty: 2 0RF Rx Instructions: may repeat second dose 72 hrs after first dose if symptoms persist lidocaine [Lidoderm] 5 % adhesive patch,medicated 1 patch topical DAILY Qty: 15 0RF Rx Instructions: leave on most painful area for up to 12 hrs naproxen 500 mg tablet 500 mg PO Q8-12H PRN (Reason: pain (scale score 4-6)) Qty: 10 0RF cyclobenzaprine 10 mg tablet 10 mg PO Q8H Qty: 20 0RF ibuprofen 600 mg tablet 600 mg PO Q6H PRN (Reason: fever or pain) Qty: 30 0RF ondansetron HCl 4 mg tablet 4 mg PO Q8H PRN (Reason: nausea and vomiting) Qty: 10 0RF dicyclomine 20 mg tablet 20 mg PO BID Qty: 7 0RF amoxicillin-pot clavulanate 875-125 mg tablet 1 tab PO BID Qty: 14 0RF ibuprofen 600 mg tablet 600 mg PO Q6H PRN (Reason: fever or pain) Qty: 30 0RF amoxicillin-pot clavulanate 875-125 mg tablet 1 tab PO BID Qty: 14 0RF dicyclomine 20 mg tablet 20 mg PO QID PRN (Reason: abdominal pain) Qty: 14 0RF metoclopramide HCl [Reglan] 10 mg tablet 10 mg PO Q6H PRN (Reason: nausea and vomiting) Qty: 14 0RF cetirizine 10 mg tablet 10 mg PO DAILY norgestimate-ethinyl estradiol 0.25-35 mg-mcg tablet 1 tab PO DAILY clonidine HCl 0.1 mg tablet 0.1 mg PO BID Stand Alone Forms: Work/School Release Print Language: Bengali
--- OUTSIDE RECORDS SUMMARY | 2025-04-22 17:10 | XMS_ITS | Encounter Summary ---
Author Organization [facility] Address [address] [place] [phone] Phone Care Team Providers Care Emt Basic Name Role Phone Provider, Fracisco MALIK Primary Care Provider [phone] Encounter Details Date Type Department Care Team (Late st Contact Info) Description 05/20/2017 Conversion Encounter [facility] [place] [address] [place] [address] Social History Tobacco Use Types Packs/Day Years [...] on filedocumented in this encounter Care Teams Emt Basic Relationship Specialty Start Date End Date Provider, MD Fracisco [address] [place] [phone] PCP - General Pediatrics 07/02/21 11/05/21 documented as of this encounter
--- OUTSIDE RECORDS SUMMARY | 2025-04-22 17:10 | XMS_ITS | Encounter Summary ---
Author Organization [facility] Address [address] [place] [address] [address] [place] [address] Care Team Providers Care Music Instructor Name Role Phone Natividad Allen MD Primary Care Provider [phone] Reason for Visit * Reason Comments Med Refill Encounter Details Date Type Department Care Team ([facility] st Contact Info) Description 02/23/2023 Refill [facility] [address] [place], [place] [phone] Natividad Allen MD [address] [place], [place] [phone] Social History Tobacco Use Types Packs/Day Years [...] Noted Time PHQ-9 Depression Total Score: 24 11/06/ 023 11:28 AM EST documented as of this encounter Care Teams Music Instructor Relationship Specialty Start Date End Date Natividad Allen MD [address] [place], [place] [phone] PCP - General Family Medicine 05/28/22 documented as of this encounter
[2025-04-22 17:14] LABS: Hematocrit 37.9 % (37.0-47.0); Hemoglobin 13.2 g/dl (12.0-16.0); Imm Gran Abs Auto 0.03 X10*3/uL (0.00-0.03); Imm Gran Pct Auto 0.2 % (0.0-0.4); Lymphocytes Absolute Auto 2.0 X10*3/uL (1.2-4.9); MANUAL DIFF FLAG NO; Mean Corpuscular HGB Conc 34.8 g/dl (31.0-35.0); Mean Corpuscular Hemoglobin 26.9 pg (27.0-33.0); Mean Corpuscular Volume 77.3 fL (80.0-98.0); NRBC Abs Auto 0.000 X10*3/uL (0.0-0.012); NRBC Pct Auto 0.0 /100WBC (0.0-0.2); Platelet Count 308 X10*3/uL (160-400); Red Blood Count 4.90 X10*6/uL (4.20-5.50); White Blood Count 13.4 X10*3/uL (4.8-10.8)
[2025-04-22 17:37] LABS: Alanine Aminotransferase 77 U/L (0-31); Albumin Level 4.8 g/dL (3.5-5.0); Alkaline Phosphatase 69 U/L (39-117); Anion Gap 16 (12-20); Aspartate Amino Transferase 35 U/L (5-31); Blood Urea Nitrogen 6 mg/dL (9-16); Calcium 9.8 mg/dL (8.4-10.2); Carbon Dioxide 25 mmol/L (22-29); Chloride 104 mmol/L (96-108); Creatinine Clr Calc Pharmacy 159.4; Estimated Glomerular Filt Rate > 60; Potassium 4.0 mmol/L (3.3-5.1); Sodium 141 mmol/L (135-145); Total Protein 7.7 g/dL (6.5-8.0)
[2025-04-22 17:57] VITALS: BP 106/61; PULSE 69; RESP 14; O2SAT 99
--- NOTE | 2025-04-22 19:17 | PC.NURSE ---
Patient is a 25 yo female who is approx 6ish weeks with increased N/V. Lungs clear bilat. Respirations even and non-labored. Abdomen soft, non-tender with positive bowel sounds. denies any abdominal pain or vag bleeding. Positive pedal pulses with no edema. Medical History History of posttraumatic stress disorder (PTSD) Social phobia Depressed Insomnia No known health problems
--- NOTE | 2025-04-22 19:45 | PC.NURSE ---
Took over care from ANA PAULA Cruz, bedside report completed, and pt resting in bed.
[2025-04-22] MEDS: Milk of Magnesia 30 ML ORAL.SUSP PO (21:08)
--- NOTE | 2025-04-22 21:09 | PC.NURSE ---
medicated per mar,
[2025-04-22 21:21] VITALS: BP 117/71; PULSE 85; RESP 19; TEMP 36.6; O2SAT 100
[2025-04-22 21:35] VITALS: BP 117/71; PULSE 85; RESP 19; TEMP 36.6; O2SAT 100
== END 2025-04-22 21:30 | disposition home or self-care (01) ==
PROVIDERS: Nurse Practitioner Family; Emergency Provider Emergency Medicine; PCP General Practice
DX: R11.2 Nausea with vomiting, unspecified (principal); K59.00 Constipation, unspecified; R10.2 Pelvic and perineal pain; Z79.899 Other long term (current) drug therapy
CPT/HCPCS: 36415; 80048; 80076; 84702; 85025; 96361; 96374; 99284; J2405

== ENCOUNTER 2025-07-28 03:30 | Emergency (ER) | payer MEDICAID, SELFPAY ==
--- OUTSIDE RECORDS SUMMARY | 2025-04-16 10:15 | XMS_ITS ---
Author Organization [facility] Address [address] [place] [address] Care Team Providers Care Outboard Motor Assembler Name Role Phone Jeff Gan Unavailable [phone] REASON FOR VISIT MAB Social History Sex Assigned At : Social History Observation Description Sex Assigned At Female Encounters Encounter Location Date Provider Diagnosis [facility] [address] [place] [id number] 04/16/2025 Jeff Gan Plan Of Treatment No Information Progress Notes * Charito ELDER IDOB: (25 yo F)Acc No.[id number]:04/16/2025 Patient: Charito Soliman I Provider: Delores Gan CNM, FNP :2000 A ge:24 Y S ex:Female Date:04/16/2025 Address:[address] [place] [address] [place] [id number] Subjective: * Chief Complaints: * M AB * Electronic signature of Jeff Gan CNM on 07/28/2025 at 03:57 AM EDT Sign off status: Pending * Provider: Delores Gan CNM, FNP Date: 0 04/16/2025 Generated for Desmond lovell/Codie/eTransmjose c on: 1 03:57 AM EDT
--- OUTSIDE RECORDS SUMMARY | 2025-05-03 09:45 | XMS_ITS ---
Author Organization [facility] Address [address] [place] [address] Care Team Providers Care Spareribs Trimmer Name Role Phone Luma Hairston Unavailable [phone] REASON FOR VISIT MAB F/U Medications Medication SIG (Take, Route, Frequency, Duration) Notes Start Date End Date Status Doxylamine-Pyridoxi ne 10-10 MG Tablet Delayed Release as directed Orally as instructed; Duration: 10 days 2 tablets at bedtime daily, if no improvement can take 2 additional tablets at breakfast for a maximum 4 tablets a day. 04/17/2025 Not-Taking/P RN Lactulose 10 GM/15ML Solution 15 mL Orally; Duration: 10 days As needed 1-2 times a day 04/17/2025 Not-Taking/P RN Zofran Active miSOPROStol 200 MCG Tablet 4 tablets Buccally Once a day; Duration: 1 days [id number] exp. 08/03/26 04/25/2025 Active miFEPRIStone 200 MG Tablet as directed Orally Once; Duration: 1 days [id number] exp. 11/03/25 client took medication at visit. 04/25/2025 Active Vitamin B6 Active Social History Sex Assigned At : Social History Observation Description Sex Assigned At Female Encounters Encounter Location Date Provider Diagnosis [address] [facility] [place] [id number] 05/03/2025 Luma Hairston Plan Of Treatment No Information History and Physical Notes * HPI (History of Present Illness) Category Sub-Category Detail Notes Category Not es Medicare Annual Visit Patient Care Team Progress Notes * Charito ELDER IDOB: (25 yo F)Acc No.[id number]:05/03/2025 Patient: Charito Soliman I Provider: Trenton Hairston CNM :2000 A ge:25 Y S ex:Female Date:05/03/2025 Address:[address] [place], [place] [address] [id number] Subjective: * Chief Complaints: * M AB F/U * Medications: T akingVitamin B6 Zofran miSOPROStol 200 MCG Tablet 4 tablets Buccally Once a day , Notes to Pharmacist: [id number] exp. 08/03/26miFEPRIStone 200 MG Tablet as directed Orally Once , Notes to Pharmacist: [id number] exp. 11/03/25 client took medication at visit.Taking Vitamin B6 Taking Zofran Taking miSOPROStol 200 MCG Tablet 4 tablets Buccally Once a day , Notes to Pharmacist: [id number] exp. 08/03/26Taking miFEPRIStone 200 MG Tablet as directed Orally Once , Notes to Pharmacist: [id number] exp. 11/03/25 client took medication at visit.Not-Taking/PRNDoxylamine-Pyridoxine 10-10 MG Tablet Delayed Release as directed Orally as instructed 2 tablets at bedtime daily, if no improvement can take 2 additional tablets at breakfast for a maximum 4 tablets a day.Lactulose 10 GM/15ML Solution 15 mL Orally As needed 1-2 times a dayNot-Taking/PRN Doxylamine-Pyridoxine 10-10 MG Tablet Delayed Release as directed Orally as instructed 2 tablets at bedtime daily, if no improvement can take 2 additional tablets at breakfast for a maximum 4 tablets a day.Not-Taking/PRN Lactulose 10 GM/15ML Solution 15 mL Orally As needed 1-2 times a day Billing Information: * Procedure Codes: * Electronic signature of Sunil Hairston CNM on 07/28/2025 at 03:58 AM EDT Sign off status: Pending * Provider: Trenton Hairston CNM Date: 0 05/03/2025 Generated for Desmond lovell/Codie/Didier on: 1 03:58 AM EDT
--- OUTSIDE RECORDS SUMMARY | 2025-07-23 10:14 | XMS_ITS ---
Author Organization [facility] Address [address] [place] [address] Care Team Providers Care Power Plant Technician Name Role Phone TYSHAWN DUNHAM [phone] Allergies Allergen (clinical drug ingredient) Drug/Non Drug Allergy documented on EMR Reaction Allergy Type Onset Date Status seasonal (uncoded) Unknown Allergy A ctive nitrofurantoin, macrocrystals / nitrofurantoin, monohydrate Macrobid Unknown Drug Allergy Active Pineapple Flavor Unknown Drug Allergy Active [place]amoille Unknown Drug Allergy Active REASON FOR VISIT Plan b Medications Medication SIG (Take, Route, Fr equency, Duration) Notes Start Date End Date Status Aftera 1.5 MG Tablet as directed Orally one; Duration: 1 days 07/23/2025 Active Social History Sex Assigned At : Social History Observation Description Sex Assigned At Female Encounters Encounter Location Date Provider Diagnosis [address] [phone] 07/23/2025 TYSHAWN DUNHAM Plan Of Treatment Medication Medication Name Sig Start Date Stop Date Notes Aftera 1.5 MG Tablet as directed Orally one; Duration: 1 days 07/23/2025 Progress Notes * Charito ELDER IDOB: (25 yo F)Acc No.[id number]:07/23/2025 Patient: Charito GIVENS I :2000 A ge:25 Y S ex:Female [facility] [place], [address] * Refills Start Aftera Tablet, 1.5 MG, Orally, 1, as directed, one, 1 days, Refills=11 Subjective: * Chief Complaints: * P alfonso b * Allergies: s easonalPineapple FlavorOrangeMacrobidyesAllergies Verified. Plan: * Treatment: * true * Date: Generated for Desmond lovell/Codie/Didier on: 03:57 AM EDT
[2025-07-28] VITALS (7 sets, daily range): BP systolic 95–123; BP diastolic 50–85; PULSE 73–106; RESP 16–20; TEMP 36.3–36.7; O2SAT 95–99; BMI 32.3
--- NOTE | 2025-07-28 03:45 | ED_ITS ---
HPI - Allergic Reaction General Chief complaint: Allergic Reaction Stated complaint: Face and back rash Time Seen by Provider: 07/28/25 03:39 Source: patient Mode of arrival: ambulatory Limitations: no limitations History of Present Illness ED Provider: Jeff SWANSON HPI narrative: The patient is a 25-year-old female with known allergies to grapefruit, oranges, Macrobid, and pineapple, presenting to the ED reporting earlier this evening she developed a macular pruritic rash to her face without associated dysphagia, tongue swelling, lip swelling, vomiting, abdominal pain, stridor, or wheeze. Patient reports mild similar pruritic rash on her upper back. The patient reports earlier today she was eating penelope and plantain chips, patient reports she has eaten both of these items before without allergic reaction. The patient denies any new soaps, detergents, cosmetics, hair dyes, shampoos, or other identifiable allergens. Related Data Home Medications ?Medication ?Instructions ?Recorded ?Confirmed cetirizine 10 mg tablet 10 mg PO DAILY 07/20/22 clonidine HCl 0.1 mg tablet 0.1 mg PO BID 07/20/22 norgestimate 0.25 mg-ethinyl 1 tab PO DAILY 07/20/22 estradiol 0.035 mg tablet Previous Rx's ?Medication ?Instructions ?Recorded ondansetron 4 mg disintegrating 4 mg PO Q6-8H PRN naus ea and 09/23/20 tablet vomiting #7 tabs metronidazole 500 mg tablet 500 mg PO BID 7 days #14 t abs 05/18/22 fluconazole 150 mg tablet 150 mg PO Q3D 2 doses #2 tab s 05/19/22 (Diflucan) ibuprofen 600 mg tablet 600 mg PO Q6H PRN fever or p ain 04/09/23 #30 tabs amoxicillin 875 mg-potassium 1 tab PO BID #14 tabs clavulanate 125 mg tablet lidocaine 5 % topical patch 1 patch topical DAILY #15 ea 12/26/23 (Lidoderm) naproxen 500 mg tablet 500 mg PO Q8-12H PRN pain (s mavis 12/26/23 score 4-6) #10 tabs cyclobenzaprine 10 mg tablet 10 mg PO Q8H #20 tabs 07/27 ibuprofen 600 mg tablet 600 mg PO Q6H PRN fever or p ain 02/11/24 #30 tabs dicyclomine 20 mg tablet 20 mg PO BID diarrhea #7 tab s 10/05/24 ondansetron HCl 4 mg tablet 4 mg PO Q8H PRN nausea and 10/05/24 vomiting #10 tabs dicyclomine 20 mg tablet 20 mg PO QID PRN abdominal p ain 02/26/25 #14 tabs metoclopramide HCl 10 mg tablet 10 mg PO Q6H PRN nause a and 02/26/25 (Reglan) vomiting #14 tabs amoxicillin 875 mg-potassium 1 tab PO BID #14 tabs 09/27 clavulanate 125 mg tablet ondansetron 4 mg disintegrating 4 mg PO Q8H PRN nausea and 04/22/25 tablet vomiting #12 tabs pyridoxine (vitamin B6) 25 mg 25 mg PO BID PRN nausea and 04/22/25 tablet vomiting #10 tabs diphenhydramine HCl 25 mg capsule 50 mg (2 x 25 mg) PO Q6H PRN 07/28/25 Itchiness, rash #20 caps famotidine 20 mg tablet 20 mg PO DAILY #7 tabs 07/28 prednisone 20 mg tablet 60 mg (3 x 20 mg) PO DAILY 5 days 07/28/25 #15 tabs Allergies Allergy/AdvReac Type Severity Reaction Status Date / Time grapefruit (GRAPEFRUIT) Allergy Unknown ITCHY MOUTH Verified 07/28/25 03:35 orange (ORANGE) Allergy Unknown ITCHY MOUTH Verified 07/28/25 03:35 nitrofurantoin (From Allergy Vomiting Verified 07/28/25 03:35 Macrobid) pineapple Allergy Itching Verified 07/28/25 03:35 Review of Systems Review of Systems: Yes all other systems are reviewed and are negative PMFSH Past Medical History Medical History History of posttraumatic stress disorder (PTSD) Social phobia Depressed Insomnia No known health problems Social History Social History Alcohol intake: current Alcohol intake frequency: holidays/special occasions only Alcohol type: wine Smoked in Last 30 Days: No Use of substances other than those prescribed or required for medical reasons: No Substance Use Type: Marijuana Advance Directives: No Advance Directives Information Provided: No Do you have a plan to hurt others: No Plan Patient : No Current occupation: [employer] Physical Exam ED Vital Signs: Vital Signs - 24 hr 07/28/25 03:34 07/28/25 04:00 07/28/25 05:45 Temperature 97.4 F Pulse Rate 100 106 H 93 Respiratory Rate 18 16 Blood Pressure 116/69 123/85 Pulse Oximetry 99 96 Oxygen Delivery Method Room Air Room Air 07/28/25 05:51 07/28/25 07:23 Temperature Pulse Rate 100 88 Respiratory Rate 20 18 Blood Pressure 123/85 95/50 L Pulse Oximetry 99 95 Oxygen Delivery Method Room Air Room Air BMI result Body Mass Index 32.3 CONSTITUTIONAL: The patient appears non-toxic, well nourished and in no acute distress. Vital signs as documented. HEAD: Atraumatic, normocephalic. EYES: EOMs grossly intact, pupils equal, conjunctiva clear, no exudate. ENT: Nares patent, no discharge. Airway patent, no audible stridor, visible mucosa is pink and moist without noted lesions. NECK: Trachea is midline, no obvious masses or gross abnormalities. CHEST: Symmetric movement, normal appearance. LUNGS: LS present and CTAB, no w/r/r. Non-labored work of breathing. CARDIAC: Regular Rhythm, S1/S2 appreciated, no murmurs, rubs or gallops. ABDOMEN: Abdomen soft and non-tender x4 quadrants, no palpable masses or organomegaly. : Deferred. EXTREMITIES: Normal tone, moves all extremities spontaneously without reported pain. No obvious acute injury or deformity noted. NEURO: Alert and oriented x3, CN II-XII appear grossly intact. Cerebellar Functioning grossly intact. No obvious sensory or motor deficits. Speech clear and appropriate. PSYCH: normal affect, appropriate eye contact, fluid speech, with appropriate response to questioning. No reported suicidality or homicidality. SKIN: Warm, dry, color appropriate, normal turgor. There is a macular, convalescing, blanchable, non ulcerative, nonvesicular, nontender, well demarcated rash noted to the bilateral cheeks, and upper back. No other rashes noted. Medications Administered Discontinued Medications Generic Name Dose Route Start Last Admin Trade Name Freq PRN Reason Stop Dose Admin Diphenhydramine HCl 50 mg 10/25/25 03:44 07/28/25 03:53 Diphenhydramine Hcl 50 Mg/Ml Vial IVPUSH 07/28/25 03:45 50 mg ONCE ONE Administration Epinephrine 0.3 mg 07/28/25 05:32 07/28/25 05:45 Epinephrine 1 Mg/Ml Vial IM 07/28/25 05:33 0.3 mg STAT STA Administration Famotidine 20 mg 07/28/25 03:44 07/28/25 03:53 Famotidine 20 Mg Tablet PO 07/28/25 03:45 20 mg ONCE ONE Administration Hydroxyzine HCl 25 mg 07/28/25 05:46 07/28/25 05:53 Hydroxyzine Hcl 25 Mg Tablet PO 07/28/25 05:47 25 mg ONCE ONE Administration Sodium Chloride 1,000 mls @ 999 mls/hr 07/28/25 03:45 07/28/25 06:20 Ns IV 07/28/25 04:45 Infused .Q1H1M DEACON Infusion Methylprednisolone Sodium Succinate 125 mg 07/28/25 03:44 07/28/25 03:52 Methylprednisolone Sod Succ 125 Mg/2 Ml Vial IVPUSH 07/28/25 03:45 125 mg ONCE ONE Administration Medical Decision Making Medical Decision Making MDM Narrative: 3:45 AM 07/28/2025 (Bryce SWANSON): The patient is a 25-year-old female with known allergies to grapefruit, oranges, Macrobid, and pineapple, presenting to the ED reporting earlier this evening she developed a macular pruritic rash to her face without associated dysphagia, tongue swelling, lip swelling, vomiting, abdominal pain, stridor, or wheeze. Patient reports mild similar pruritic rash on her upper back. The patient reports earlier today she was eating penelope and plantain chips, patient reports she has eaten both of these items before without allergic reaction. The patient denies any new soaps, detergents, cosmetics, hair dyes, shampoos, or other identifiable allergens. On exam patient has a macular appearing rash to the bilateral cheeks in a inverted V pattern, there was no associated lip or tongue swelling, stridor, wheezing, or posterior pharyngeal swelling. Patient will be treated with Solu-Medrol, Pepcid, Benadryl, and we will re-evaluate. 5:07 AM 07/28/2025 (Bryce SWANSON): Patient is reporting [id number] improvement in facial rash 1 hour following interventions, however unfortunately the patient reports she now is developing worsening rash on her back, as well as in her bilateral axilla, and bilateral inner thighs. The new area of rash continues to be pruritic without tenderness. Patient remains afebrile. The patient continues to have no respiratory distress or adventitious lung sounds. Patient's rash is not consistent with a SJS or 10s, not consistent with erysipelas or pityriasis rosea. The patient states concerns for possible herpes, shingles, or chickenpox, the rash is not consistent with any of these conditions. The patient's rash appears similar to a morbilliform drug reaction, however the patient denies any new medications. The patient does report she took a dose of plan B 2-3 days ago, but reports she has had this medication multiple times in the past. Patient's case was discussed with the oncoming physician Dr. Cuadra, at this time we will administer epinephrine and assess for improvement. Patient will be signed out to Dr. Cuadra for reassessment. 05:47 Date: 07/28/25 Provider: Juan Luis Cuadra MD attending note: I assumed care of this patient from my colleague, physician plastic surgery assistant Jeff Mendoza. Patient is a 25-year-old female with a history of allergic reaction/dermatographia who presents emergency department for evaluation of a pruritic rash that started yesterday at 23:00 hours. She states the rash started on her face in his spread to her arms, hands and back. She denied any upper airway symptoms, shortness of breath, nausea or vomiting. She states she has had pruritic rashes in the past that when she itches then they turn into hives (dermatographia). She states she has been itching your skin in his not noticed any hives. The patient was treated with Pepcid 20 mg IV, Benadryl 50 mg IV and Solu-Medrol 125 mg IV with some improvement of her rash. At the time my evaluation she is awake, alert, and does not appear to be in distress, but she still is complaining of a pruritic rash. Exam: Vital signs: BP 116/69, heart rate 106, respiratory rate 16, temperature 97.4 degrees F, O2 saturation 96% on room air General: Awake, alert in no distress Head: Normocephalic, atraumatic Neck: Supple, no adenopathy Lung: breath sounds symmetric, no wheezing, no rales and no rhonchi Heart: Tachycardic with regular rhythm, normal S1, S2 no murmurs or rubs Abdomen: soft, non-tender, nondistended, normal bowel sounds Extremities: no deformities, moves all extremities symmetrically, no edema Skin: Patient has a macular rash on her face which blanches with pressure, she has a similar rash on her hands and back Neuro: Awake, alert, oriented, normal speech, cranial nerves 2-12 intact, moves all extremities symmetrically Psych: Pleasant, cooperative Differential diagnosis: ?Includes but is not limited to viral syndrome, allergic reaction, drug reaction, Course: 05:55 h The patient's presentation in his most likely consistent with an allergic reaction and I did discuss this with her and her mother. The patient was given epinephrine 0.3 mg IM and hydroxyzine 50 mg orally. Patient will be observed in the emergency department for at least 2 hours to make sure she does not have a rebound reaction. 09:06 Patient's rash is completely resolved. She has no concerning signs for anaphylaxis. I, Dr. Juan Luis Cuadra, personally evaluated the patient. I reviewed the Physician plastic surgery assistant Jeff Mendoza's documentation and I was available to supervise the management of the patient. I agree with the treatment and plan. Further, I agree with his orders as written. My note reflects my personal findings on my history and exam. Admission/Observation Consideration of admission/observation: Escalation of care including admission/observation considered Critical Care Time Critical Care Time Critical Care Time: Yes Total Critical Care Time: 35 Attestation: Critical Care: The patient was critically ill with a high probability of imminent or life threatening deterioration. I spent greater than 30 minutes of discontinuous time evaluating the patient,delivering critical care at the bedside, discussing and evaluating pertinent data with consultants. Critical care time does not include time spent performing separately billable procedures or teaching. Total time spent performing critical care was 35 minutes. Discharge Plan Discharge Clinical Impression: Allergic reaction Patient Disposition: Home, Self-Care Instructions: General Allergic Reaction (ED) Additional Instructions: Your symptoms are consistent with an allergic reaction. You were treated with Benadryl, Solu-Medrol, Pepcid, hydroxyzine and epinephrine shot. Take prednisone 20 mg pills, 3 pills once a day for 5 days. While you ?are taking prednisone, do not take any NSAIDs (Motrin, Advil, ibuprofen, Aleve, naproxen). Take Pepcid (famotidine) 20 mg pills, 1 pill once a day for 5 days. ?This medication reduces the amount of acid that your stomach produces and will help the inflammation in your stomach heal. Take Benadryl (diphenhydramine) 25 mg pills, 2 pills 4 times a day for the next 2-3 days to help reduce the swelling and itchiness in the area of your rash. This medication will make you sleepy. Do not drive or work while taking this medication. Follow-up with your doctor in 2 days. Please return to the emergency department if your symptoms get worse or if you develop any symptoms that are concerning to you. Prescriptions: New diphenhydramine HCl 25 mg capsule 50 mg PO Q6H PRN (Reason: Itchiness, rash) Qty: 20 0RF prednisone 20 mg tablet 60 mg PO DAILY 5 Days Qty: 15 0RF famotidine 20 mg tablet 20 mg PO DAILY Qty: 7 0RF No Action ondansetron 4 mg tablet,disintegrating 4 mg PO Q6-8H PRN (Reason: nausea and vomiting) Qty: 7 0RF metronidazole 500 mg tablet 500 mg PO BID 7 Days Qty: 14 0RF fluconazole [Diflucan] 150 mg tablet 150 mg PO Q3D Qty: 2 0RF Rx Instructions: may repeat second dose 72 hrs after first dose if symptoms persist lidocaine [Lidoderm] 5 % adhesive patch,medicated 1 patch topical DAILY Qty: 15 0RF Rx Instructions: leave on most painful area for up to 12 hrs naproxen 500 mg tablet 500 mg PO Q8-12H PRN (Reason: pain (scale score 4-6)) Qty: 10 0RF cyclobenzaprine 10 mg tablet 10 mg PO Q8H Qty: 20 0RF ibuprofen 600 mg tablet 600 mg PO Q6H PRN (Reason: fever or pain) Qty: 30 0RF ondansetron HCl 4 mg tablet 4 mg PO Q8H PRN (Reason: nausea and vomiting) Qty: 10 0RF dicyclomine 20 mg tablet 20 mg PO BID Qty: 7 0RF amoxicillin-pot clavulanate 875-125 mg tablet 1 tab PO BID Qty: 14 0RF ibuprofen 600 mg tablet 600 mg PO Q6H PRN (Reason: fever or pain) Qty: 30 0RF amoxicillin-pot clavulanate 875-125 mg tablet 1 tab PO BID Qty: 14 0RF dicyclomine 20 mg tablet 20 mg PO QID PRN (Reason: abdominal pain) Qty: 14 0RF metoclopramide HCl [Reglan] 10 mg tablet 10 mg PO Q6H PRN (Reason: nausea and vomiting) Qty: 14 0RF ondansetron 4 mg tablet,disintegrating 4 mg PO Q8H PRN (Reason: nausea and vomiting) Qty: 12 0RF pyridoxine (vitamin B6) 25 mg tablet 25 mg PO BID PRN (Reason: nausea and vomiting) Qty: 10 0RF cetirizine 10 mg tablet 10 mg PO DAILY norgestimate-ethinyl estradiol 0.25-35 mg-mcg tablet 1 tab PO DAILY clonidine HCl 0.1 mg tablet 0.1 mg PO BID Interventions: ED Discharge Assessment Last Done: 07/28/25 09:21 Discharge Date/Time: 07/28/25 09:22 Print Language: Sierra Leonean
--- OUTSIDE RECORDS SUMMARY | 2025-07-28 03:57 | XMS_ITS | Encounter Summary ---
Author Organization [facility] Address [address] [place] [phone] Phone Care Team Providers Care Overlock Collar Setter Name Role Phone Provider, Fracisco MALIK Primary Care Provider [phone] Reason for Visit * Reason Comments Med Refill Encounter Details Date Type Department Care Team (Late st Contact Info) Description 07/13/2019 Refill [facility] [address] [place] [address] Real Schneider MD [address] [place] [address] Dermatitis Social History Tobacco Use Types Packs/Day [...] Goldberg LPN - 07/19/2019 1:15 PM EDT [facility] PCP BLL: Pt returning call to [...] cause documented in this encounter Care Teams Overlock Collar Setter Relationship Specialty Start Date End Date Provider, MD Fracisco [address] [place] [phone] PCP - General Pediatrics 07/02/21 11/05/21 documented as of this encounter
--- OUTSIDE RECORDS SUMMARY | 2025-07-28 03:57 | XMS_ITS | Encounter Summary ---
Author Organization [facility] Address [address] [place] [phone] Phone Care Team Providers Care Laundry Or Dry Cleaners Counter Clerk Name Role Phone Provider, Fracisco MALIK Primary Care Provider Encounter Details Date Type Department Care Team (Late st Contact Info) Description 10/21/2011 Documentation [facility] Family Medicine [address] [place] [address] Family Medicine, Physician [address] [place] [phone] Social History Tobacco Use Types Packs/Day Years [...] on filedocumented in this encounter Care Teams Laundry Or Dry Cleaners Counter Clerk Relationship Specialty Start Date End Date Provider, MD Fracisco [address] [place] [id number] PCP - General Pediatrics 07/02/21 11/05/21 documented as of this encounter
--- OUTSIDE RECORDS SUMMARY | 2025-07-28 03:57 | XMS_ITS | Encounter Summary ---
Author Organization [facility] Address [address] [place] [phone] Phone Care Team Providers Care Environment Artist Name Role Phone Provider, Fracisco MALIK Primary Care Provider [phone] Reason for Visit * Reason Comments Med Refill Encounter Details Date Type Department Care Team (Late st Contact Info) Description 02/11/2020 Refill [facility] [place] [address] [place] [address] Solitario Faria MD [address] [place] [address] Dermatitis Social History Tobacco Use Types Packs/Day [...] cause documented in this encounter Care Teams Environment Artist Relationship Specialty Start Date End Date Provider, MD Fracisco [address] [place] [address] PCP - General Pediatrics 07/02/21 11/05/21 documented as of this encounter
--- OUTSIDE RECORDS SUMMARY | 2025-07-28 03:57 | XMS_ITS | Encounter Summary ---
Author Organization [facility] Address [address] [place] [address] Phone Care Team Providers Care Food Cart Attendant Name Role Phone Provider, Fracisco MALIK Primary Care Provider [phone] Encounter Details Date Type Department Care Team (Late st Contact Info) Description 12/11/2014 Documentation [facility] Family Medicine [address] [place] [address] Family Medicine, Physician [address] [place], [place] [address] Social History Tobacco Use Types Packs/Day Years [...] on filedocumented in this encounter Care Teams Food Cart Attendant Relationship Specialty Start Date End Date Provider, MD Fracisco [address] [place] [id number] PCP - General Pediatrics 07/02/21 11/05/21 documented as of this encounter
--- OUTSIDE RECORDS SUMMARY | 2025-07-28 03:57 | XMS_ITS | Patient Health Record ---
Author Organization [facility] Address [address] [place] [address] Care Team Providers Care Crew Mess Attendant Name Role Phone ALESHIAAndres TYSHAWN Unavailable [phone] FABIOLA REEDER Unavailable [phone] Jeff Gan Unavailable [phone] Jessica Hairston Unavailable [phone] Luma Hairston Unavailable [phone] Allergies Allergen (clinical drug ingredient) Drug/Non Drug Allergy documented on EMR Reaction Allergy Type Onset Date Status seasonal (uncoded) Unknown Allergy A ctive nitrofurantoin, macrocrystals / nitrofurantoin, monohydrate Macrobid Unknown Drug Allergy Active Pineapple Flavor Unknown Drug Allergy Active [place] Unknown Drug Allergy Active Results Component Value Reference Range Flag Notes Test, Urine Reviewed date:04/11/2025 01:07:35 PM Interpretation:Positive Performing Lab: Notes/Report: Positive Test, Urine Positive Lot # [id number] Exp. Date 12/18/2025 hCG,Beta Subunit, [id number] Reviewed date:09/26/2024 09:44:52 AM Interpretation:Negative Performing Lab:[facility] [place], [address] [facility], [place], Phone - [phone], Director - Pushpa Notes/Report: hCG,Beta Subunit,Qnt,Serum <1 Female (Non-) 0 - 5 (Postmenopausal) 0 - 8 . Female () Weeks of Gestation 3 6 - 71 4 10 - 750 5 828 - 9563 6 165 - 08989 7 6921 -136093 8 22124 -710018 9 62042 -418444 27278 -909196 12 48431 -641568 14 15273 - 39174 15 40064 - 22530 16 1340 - 82136 17 0308 - 55111 18 3243 - 33450 Millicent ECLIA methodology Test, Urine Reviewed date:09/22/2024 11:41:52 AM Interpretation:Negative Performing Lab: Notes/Report: Negative Test, Urine Negative Lot # [id number] Exp. Date 06/26/[address]/NG, Urine Reviewed date:10/05/2024 08:45:20 AM Interpretation:Negative Performing Lab:[facility], [facility], [place], [address] Kieran Taylor, Notes/Report: GONORRHEA, AMPLIFIED NEGATIVE NEGATIVE N CHLAMYDIA, AMPLIFIED NEGATIVE NEGATIVE N DNA Test Results SEX: F : 2000 AGE: 24 [id number] CLINIC ID: [id number] SS: PHYSICIAN: FABIOLA REEDER CNM COLLECTED BY: [id number] Specimen Source: Urine Specimen Type: Urine, Sherri PCR Medium Neisseria gonorrhoeae: NEGATIVE Normal Value: Negative Chlamydia trachomatis: NEGATIVE Normal Value: Negative Test, Urine Reviewed date:09/20/2024 01:13:27 PM Interpretation: Performing Lab: Notes/Report: Test, Urine Negative Lot # [id number] Exp. Date 06/26/25 Test, Urine Reviewed date:04/27/2025 02:12:22 PM Interpretation:Positive Performing Lab: Notes/Report: Positive Test, Urine Positive Lot # [id number] Exp. Date Reason For Referral No Information Medications Medication SIG (Take, Route, Frequency, Duration) Notes Start Date End Date Status Aftera 1.5 MG Tablet as directed Orally one; Duration: 1 days 07/23/2025 Active Vitamin B6 Active Levonorgestrel 1.5 MG Tablet as directed Orally 06/27/2025 Active miFEPRIStone 200 MG Tablet as directed Orally Once; Duration: 1 days [id number] exp. 11/03/25 client took medication at visit. 04/25/2025 Active Doxylamine-Pyridoxin e 10-10 MG Tablet Delayed Release as directed Orally as instructed; Duration: 10 days 2 tablets at bedtime daily, if no improvement can take 2 additional tablets at breakfast for a maximum 4 tablets a day. 04/17/2025 Not-Taking/P RN Chely Active miSOPROStol 200 MCG Tablet 4 tablets Buccally Once a day; Duration: 1 days [id number] exp. 08/03/26 04/25/2025 Active Lactulose 10 GM/15ML Solution 15 mL Orally; Duration: 10 days As needed 1-2 times a day 04/17/2025 Not-Taking/P RN Social History Sex Assigned At : Social History Observation Description Sex Assigned At Female Social History HIV Risk Assessment Social Info Question Answer Notes Additional Questions Is an HIV Risk Asse ssment being conducted? No Human Trafficking: Social Info Question Answer Notes Human Trafficking Experienced: No PrEP for HIV: Social Info Question Answer Notes PrEP for HIV Is the client intere sted in beginning/continuing PrEP for HIV? No Sexual History: Social Info Question Answer Notes Sexual History: Sexual History Reviewed: Partner s, Practices, Protection/Past STIs, Prevention of Currently sexually active? Yes Sexually active with: Men Number of male partners 1 Your sexual activities include: oral intercourse, vaginal intercourse Reviewed types of EC? No Do you use condoms? No Date of last unprotected intercourse: 04/07/2025 Number of partners in past 3 months: 1 Number of partners in past year: 1 What is the client's primary method to prevent at the end of their visit? None/No Method (Specify Reason) If none, what is the reason? Does your partner(s) currently have any STIs? No Counseling Provided: Social Info Question Answer Notes Counseling Provided The client was couns eled on the following topics at this visit: Control, Abstinence, Reproductive Life Planning Please indicate the length o f time, in minutes, that counseling was provided. 20 Counseling Was Provided By: charisse Drugs/Alcohol: Social Info Question Answer Notes Drug/Alcohol Use Do you or have you used drugs? Yes, i n the past Do you or have you used alcohol? No Food Access: Social Info Question Answer Notes Food Access The Client's current access to food is Secure Food Access clt requests referrals Housing Social Info Question Answer Notes Housing The client's current living situation is: stable housing Tobacco Use: Social Info Question Answer Notes Tobacco Use: Do you/have you used tobacco? Yes, currently vape use, tobacco product w/ marijuana use Tobacco Smoking Status Current every day smoker Reproductive Life Plan: Social Info Question Answer Notes Reproductive Life Plan: Do you want to h ave children? Yes, I want to have children How long would you like to wait until you/your partner becomes ? 5 - 10 years How sure are you that you will be able to use your control method without any problems? Very sure Relationships: Social Info Question Answer Notes Relationships Has the client experienced any of the following: Client has never experienced harmful relationships DO NOT USE - Travel Plans: Social Info Question Answer Notes Travel Plans DO NOT USE - Has cli ent traveled to any Zika affected areas? Yes DO NOT USE - Has partner traveled to any Zika af fected areas? Yes DO NOT USE - Is client planning to travel to any Zika affected areas? No DO NOT USE - Is partner planning to travel to an y Zika affected areas? No Medication Social Info Question Answer Notes Medication Patent provided verbal consent for MAB today. Yes Patient would like to discZolkC s STI testing today. No Patient would like to discZolkC s contraception today. No Some people experience press ure around or control from others in their life. Is anyone pressuring you around your decisions about your ? No Are you experiencing pressur e around sex you are having? No Is anyone trying to interfer e with your use of contraception? No MAB patient plan Reviewed caregiving obligations, Reviewed work obligations, Reviewed support person plan, Reviewed safety/privacy plan (describe in notes), Offered medical note, Reviewed patient self care (describe in notes) Section Notes: APtima/ bw APtima/ bw Problems Problem Type SNOMED Code ICD Code Onset Dates Problem Status W/U Status Risk Notes Problem Abnormal uterine bleeding (05304078088476 ) Abnormal uterine and vaginal bleeding, unspecified (N93.9) Active confirmed Problem Amenorrhea (10881702) Amenorrhea (N91.2) Active confirmed Vital Signs Blood pressure diastolic 64 mm Hg 04/25/2025 Height 61 in 04/25/2025 Blood pressure systolic 102 mm Hg 04/25/2025 Encounters Encounter Location Date Provider Diagnosis [address] [id number] 09/20/2024 FABIOLA REEDER Encounter for test, result negative Z32.02 and Encounter for screening for infections with a predominantly sexual mode of transmission Z11.[address] [id number] 09/22/2024 FABIOLA REEDER Counseling, unspecified Z71.9 ; Amenorrhea N91.2 ; Encounter for test, result negative Z32.02 ; Encounter for test, result unknown Z32.00 and Visit for pill refill/surveillance Z30.[address] [id number] 04/11/2025 FABIOLA REEDER Encounter for test, result positive Z32.01 and Encounter for screening for infections with a predominantly sexual mode of transmission Z11.3 [facility] [address] [facility] [address] [place] [address] 04/17/2025 Jessica Hairston Vomiting of pregnanc y, unspecified O21.9 and Diseases of the digestive system complicating , first trimester O99.611 [facility] [address] [facility] [address] [place], [place] [id number] 04/25/2025 Jeff Gan Encounter for electi ve termination of Z33.2 and test, result positive Z32.[address] [id number] 06/27/2025 FABIOLA REEDER Encounter for prescription of emergency contraception Z30.[address] [id number] 10/17/2024 FABIOLA REEDER [address] [id number] 04/13/2025 Jeff Gan [address] [id number] 07/23/2025 TYSHAWN GABAI Assessments Encounter Date Diagnosis (ICD Code) Assessment Notes Treatment Notes Treatment Clinical Notes Section Notes 09/20/2024 Encounter for test, result negative (ICD-10 - Z32.02) 09/20/2024 Encounter for screening for infections with a predominantly sexual mode of transmission (ICD-10 - Z11.3) 09/22/2024 Amenorrhea (ICD-10 - N91.2) Likely amenorrhea related to hormonal BC. Urine PT neg today but clt prefers serum screening prior to restart on OCP's. Spent 20 minutes doing the following: Chart Prep Obtaining/revi clark history Performing medically necessary exam Counseling/Mate First rdination of Care Documenting the visit Educating the patient Ordering medication/jesus t/procedures Established Patient: [id number] 20 Minutes 09/22/2024 Counseling, unspecified (ICD-10 - Z71.9) Spent 20 minutes doing the following: Chart Prep Obtaining/revi clark history Performing medically necessary exam Counseling/Mate First rdination of Care Documenting the visit Educating the patient Ordering medication/jesus t/procedures Established Patient: [id number] 20 Minutes 04/11/2025 Encounter for test, result positive (ICD-10 - Z32.01) Discussed options counseling, STI screening, family involvement, ectopic warnings, sexual coercion, reproductive life plan. 04/17/2025 Vomiting of , unspecified (ICD-10 - O21.9) We reviewed importance of fluid intake with vomiting, reviewed small snacks/sips throughout the day may provide relief vs big meals/drinking quickly. Reviewed how to take medications/ED precautions. Plan reviewed with biomedical photographer. Spent 20 minutes doing the following: Chart Prep Obtaining/revi clark history Performing medically necessary exam Counseling/Mate First rdination of Care Documenting the visit Educating the patient Ordering medication/jesus t/procedures Established Patient: [id number] 20 Minutes 04/17/2025 Diseases of the digestive system complicating , first trimester (ICD-10 - O99.611) Spent 20 minutes doing the following: Chart Prep Obtaining/revi clark history Performing medically necessary exam Counseling/Mate First rdination of Care Documenting the visit Educating the patient Ordering medication/jesus t/procedures Established Patient: [id number] 20 Minutes 04/25/2025 Encounter for elective termination of (ICD-10 - Z33.2) Clt is a good candidate for medication with a at less than or equal to 77 days gestational age. The patient has no medical contraindication s. The patient understands the protocol and possible side effects, the follow up options, and the need for an aspiration procedure if the medication fails. The patient has been given emergency contact information. Client has ibuprofen, tylenol and ondansetron prescriptions from outside providers and was counseled on use in this context. Consents reviewed and signed by Clt. Preprocedure ultrasound done: {NOT PERFORMED. CLT understands the risks of foregoing a preprocedure ultrasound that include: ectopic , inaccurate dating and early loss}. client reports IUP confirmed on outside US. Hgb POC done: No. Gestational age less than 70 days and no recent hx of anemia After review with the CLT on FU methods the agreed upon follow up method will be: (1) Self assessment visit in 4-7 days followed by urine test in 5 weeks MED AB KIT given with: Med AB during and aftercare instructions, [employer] Mifepristone Guide, [facility] Fact Sheet, Rh form, All options Talkline referral card, ectopic warnings sheet, 2 urine tests 04/25/2025 test, result positive (ICD-10 - Z32.01) 06/27/2025 Encounter for prescription of emergency contraception (ICD-10 - Z30.012) Client counseled that there is a chance of even after treatment. Client advised to refrain from unprotected intercourse following treatment, as Emergency Contraception will not prevent during this time, and risk may be increased due to a possible delay in ovulation. If no menses occur in 4 weeks after treatment, the client should return for a test. Dispensed condoms with emergency contraception and emergency contraception information sheet 09/22/2024 Encounter for test, result negative (ICD-10 - Z32.02) Spent 20 minutes doing the following: Chart Prep Obtaining/revi clark history Performing medically necessary exam Counseling/Mate First rdination of Care Documenting the visit Educating the patient Ordering medication/jesus t/procedures Established Patient: [id number] 20 Minutes 04/11/2025 Encounter for screening for infections with a predominantly sexual mode of transmission (ICD-10 - Z11.3) 09/22/2024 Encounter for test, result unknown (ICD-10 - Z32.00) Spent 20 minutes doing the following: Chart Prep Obtaining/revi clark history Performing medically necessary exam Counseling/Mate First rdination of Care Documenting the visit Educating the patient Ordering medication/jesus t/procedures Established Patient: [id number] 20 Minutes 09/22/2024 Visit for pill refill/surveillan ce (ICD-10 - Z30.41) Reviewed that CHC's are CI'd for sickle cell DISEASE. With having TRAIT it appears there is still some elevated VTE risk so would recommend switching to a progestin only method. Clt in agreement. New Rx for Slynd sent. Take 1 pill daily. BUM x 7 days. Clt aware that many folks have amenorrhea on this pill Year supply sent Spent 20 minutes doing the following: Chart Prep Obtaining/revi clark history Performing medically necessary exam Counseling/Mate First rdination of Care Documenting the visit Educating the patient Ordering medication/jesus t/procedures Established Patient: [id number] 20 Minutes 06/27/2025 Other Discussed STI risks, screening, and safe sex Plan Of Treatment No Information Insurance Providers Payer Name Payer Address Payer Phone Subscriber Number Group Number Insured Name Patient Relationship to Insured Coverage Start Date Coverage End Date [place] ATT CLAIMS [address] RAYSHAWN YOST [id number] Charito Elder Self - patient is the insured Medications Administered Medication Instructions Date of Administration Dosage Notes Depo SubQ 104 mg 12/11/2022 104 mg Depo SubQ 104 mg 07/14/2023 104 mg Depo SubQ 104 mg 10/08/2023 104 mg Lidocaine 1% 04/17/2019 1.5 mL Medical (General) History Medical History History ICD Code Sickle cell trait Depression Social anxiety Migraines without aura, REYEZ's bipolar II Surgical History Surgery Date(Month/Year) Hospitalization History Reason Date(Month/Year) pyelonephritis 2020
--- OUTSIDE RECORDS SUMMARY | 2025-07-28 03:57 | XMS_ITS | Encounter Summary ---
Author Organization [facility] Address [address] [place] [address] Phone Care Team Providers Care Invoice Checker Name Role Phone Provider, Fracisco MALIK Primary Care Provider [phone] Encounter Details Date Type Department Care Team (Late st Contact Info) Description 05/20/2017 Conversion Encounter [facility] [address] [place] [address] Social History Tobacco Use Types Packs/Day Years [...] on filedocumented in this encounter Care Teams Invoice Checker Relationship Specialty Start Date End Date Provider, MD Fracisco [address] [place] [phone] PCP - General Pediatrics 07/02/21 11/05/21 documented as of this encounter
--- OUTSIDE RECORDS SUMMARY | 2025-07-28 03:57 | XMS_ITS | Encounter Summary ---
Author Organization [facility] Address [address] [place] [address] Phone Care Team Providers Care Side Stitcher Name Role Phone Provider, Fracisco MALIK Primary Care Provider [phone] Encounter Details Date Type Department Care Team (Late st Contact Info) Description 10/28/2010 Documentation [facility] Family Medicine [address] [place] [address] Family Medicine, Physician [address] [place], [place] [phone] Social History Tobacco Use Types Packs/Day Years [...] on filedocumented in this encounter Care Teams Side Stitcher Relationship Specialty Start Date End Date Provider, MD Fracisco [address] [place] [phone] PCP - General Pediatrics 07/02/21 11/05/21 documented as of this encounter
--- OUTSIDE RECORDS SUMMARY | 2025-07-28 03:58 | XMS_ITS | Encounter Summary ---
Author Organization [facility] Address [address] [place] [address] Phone Care Team Providers Care Content Architect Name Role Phone Provider, Fracisco MALIK Primary Care Provider [phone] Encounter Details Date Type Department Care Team (Late st Contact Info) Description 12/04/2011 Documentation [facility] [place] [address] [place] [address] Family Medicine, Physician [address] [place] [phone] Social History Tobacco Use Types Packs/Day Years [...] on filedocumented in this encounter Care Teams Content Architect Relationship Specialty Start Date End Date Provider, MD Fracisco [address] [place] [phone] PCP - General Pediatrics 07/02/21 11/05/21 documented as of this encounter
--- OUTSIDE RECORDS SUMMARY | 2025-07-28 03:58 | XMS_ITS | Encounter Summary ---
Author Organization [facility] Address [address] [place] [address] [address] [place] [address] Care Team Providers Care Construction Plumber Name Role Phone Natividad Allen MD Primary Care Provider [phone] Mj Major RN Unavailable [phone] Balbina Truong Unavailable Reason for Visit * Reason Comments Med Refill Encounter Details Date Type Department Care Team (Late Contact Info) Description 02/23/2023 Refill [facility] MEDICINE [address] [place] [address] Natividad Allen MD [address] [place] [address] Social History Tobacco Use Types Packs/Day Years [...] Encounters Date Type Department Care Team (Late Contact Info) Description 11/07/2025 2:30 PM EST Office Visit [facility] OPTOMETRY [address] [place], [place] [phone] Myrtle Camacho, OD [address] [place] [address] documented as of this encounter Visit Diagnoses Not on filedocumented in this encounter Additional Health Concerns Assessment Noted Time PHQ-9 Depression Total Score: 24 023 11:28 AM EST documented as of this encounter Care Teams Construction Plumber Relationship Specialty Start Date End Date Natviidad Allen MD [address] [place] [address] PCP - General Family Medicine 05/28/22 Mj Major, RN [address] [place] [address] Registered Nurse Family Medicine 04/23/25 06/08/25 Balbina Truong 04/23/25 06/08/25 documented as of this encounter
--- OUTSIDE RECORDS SUMMARY | 2025-07-28 03:58 | XMS_ITS | Clinical Summary ---
Author Organization [employer] Address [address] [facility] [facility] [address] [place] [address] Care Team Providers Care Glazier Artist Name Role Phone Natividad Allen MD Primary Care Provider [phone] Allergies Active Allergy Reactions Criticality Noted Date Comments Grapefruit Extract 01/27/2022 Other reaction(s): Facial swelling Nitrofurantoin Hives 10/30/2022 [place] Oil Swelling 01/27/2022 Pineapple 11/02/2022 Medications EPINEPHrine (Epipen) 0.3 MG/0.3ML injection syringe inject 0.3 milliliter by intramuscular route once as needed for anaphylaxis, then call 911 immediately 2 Active Ventolin HFA 108 (90 Base) MCG/ACT inhalerIndicat ions:Wheezing INHALE 2 PUFFS EVERY 6 HOURS IF NEEDED FOR WHEEZING. 18 g 1 4 Active Acetaminophen Extra Strength 500 MG tablet Take 1 tab po TID prn headache/fever/ch ills/body aches/pain 30 tablet 4 Active cetirizine (ZyrTEC) 10 MG tablet TAKE 1 TABLET BY MOUTH EVERY DAY 90 tablet 3 5 Active fluticasone (Flonase) 50 MCG/ACT nasal spray ADMINISTER 1 SPRAY INTO EACH NOSTRIL ONCE PER DAY. 48 mL 5 Active cyclobenzaprin e (Flexeril) 10 MG tablet Take 1 tablet by mouth every 6 (six) hours during the day. 4 Active hydrOXYzine pamoate (Vistaril) 25 MG capsule TAKE 1 CAPSULE BY MOUTH EVERY NIGHT AT BEDTIME NEEDED FOR ANXIETY 5 Active norethindrone (Micronor) 0.35 MG tablet TAKE 1 TABLET (0.35 MG) BY MOUTH ONCE PER DAY. 84 tablet 1 Active ibuprofen 600 MG tablet TAKE 1 TABLET BY MOUTH THREE TIMES A DAY 90 tablet 5 Active Active Problems Problem Noted Date Diagnosed Date Chronic diarrhea 03/28/2025 Assessment & Plan (03/28/2025 8:03 PM EDT): Unclear if she has any type of food intolerance or celiac disease vs bacterial overgrowth vs viral diarrhea prolonged by inadequate diet. Advised regarding proper hydration and advance to brat diet as tolerated then soft diet, information given to patient. Order labs and follow-up with PCP Use Imodium only if diarrhea does not improve with diet in the next 2 days, she needs to be out of work for at least 2 days. Swelling of left foot 02/06/2025 Assessment & [...] Floanse nasal daily x 7d Take Acetaminophen (Tylenol )/Ibuprofen as needed to reduce fever, headache, body [...] 72 hours (temperature should be less than 100 F without medication). Amenorrhea 09/19/2024 Assessment & Plan [...] needs to fu with PCP and call [facility] to be assigned with a new prescriber. Continue Seroquel, she doesn't seem to be taking Straterra, she will fu with PCP and bring all her meds. Assessment & Plan (11/15/2023 11:26 AM EST): Continue f/u with psychiatrist and therapist Assessment & Plan (11/08/2022 8:10 AM EST): Refer to [facility] to re-engage therapy, aid in diagnostic clarity prescriber for aid in prescribing meds Sickle cell trait 01/28/2022 Posttraumatic stress disorder 01/28/2022 Social phobia 01/28/2022 Anxiety 08/18/2017 Assessment & Plan (03/28/2025 8:04 PM EDT): Patient is not taking any medication for at least 6 months since she has not follow-up with psychiatrist, unclear if the area is related to anxiety. Advised to make an appointment with PCP to restart medications as needed, medically screened up/med reconciliation. Started on oral contraceptives, patient does not want a at this time Poor concentration 08/18/2017 Depression 08/18/2017 Sleep pattern [...] Encounters Date Type Department Care Team Description 06/20/2025 Refill [facility] [address] [place] [phone] Natividad Allen MD 06/18/2025 Refill [facility] [address] [place] [address] Eufemia Dos Santos MD 06/08/2025 Patient Outreach [facility] MEDICINE [address] [place] [address] [phone] Natividad Allen MD Care Coordination ([facility] telephone call outreach/) 05/29/2025 Patient Outreach [facility] [address] [place] [phone] Natividad Allen MD Care Coordination ([facility] telephone call outreach) 05/22/2025 Patient Outreach [facility] [address] [place] [address] Natividad Allen MD Care Coordination ([facility] telephone call outreach) 05/14/2025 Patient Outreach [facility] [address] [place] [phone] Natividad Allen MD Care Coordination ([facility] telephone call outreach ///) 05/12/2025 Refill [facility] [address] [place] [phone] Natividad Allen MD 05/07/2025 Patient Outreach [address] [address] Natividad Allen MD Care Coordination ([facility] telephone call outreach) from Last 3 Months Immunizations Immunization Administration Dates Next Due DTaP, 5 pertussis [...] Moderna Covid-19 Vaccine 6+ Bivalent 10/09/2022 Novel [id number], all formulations 11/04/2009 Pfizer Covid-19 Vaccine 12+ [...] Sign Reading Time Taken Comments Blood Pressure 126/75 03/28/2025 2:21 PM EDT Pulse 80 03/28/2025 2:21 PM EDT Temperature 36.6 C (97.9 F) 03/28/2025 2:21 PM EDT Respiratory Rate 16 03/28/2025 2:21 PM EDT Oxygen Saturation 98% 03/28/2025 2:21 PM EDT Inhaled Oxygen Concentration - - Weight 81.6 kg (180 lb) 03/28/2025 2:21 PM EDT Height 157.5 cm (5' 2 ) 08/02/2024 3:58 PM EDT Body Mass Index 32.92 08/02/2024 3:58 PM EDT Plan of Treatment Upcoming Encounters Date Type Department Care Team (Late st Contact Info) Description 11/07/2025 2:30 PM EST Office Visit [facility] OPTOMETRY [address], [place] [phone] Myrtle Camacho, OD [address] [place] [address] Health Maintenance Due Date Last Done Comments Alcohol/Substance Use Screening 2013 Family Planning (PISQ) 2016 Pap Smear 2022 Depression Monitoring 05/06/2023 11/06/2022, 023 COVID-19 Vaccine ( season) 2025 10/07/2023, 10/09/2022, 10/06/2021, Additional history exists Influenza Vaccine (#1) 2025 4, 10/09/2022, 09/25/2019, Additional history exists Disability Screening 09/19/2025 09/19/2024 SDOH Screening 02/02/2026 02/02/2025 Tobacco Screening 02/06/2026 [...] Years) and At-Risk Patients (6 to 49) Years Aged Out 04/23/2003, 2001, 2001, Additional history exists No longer eligible based on patient's age to complete this topic IPV Vaccines Completed 06/10/2005, 04/04, 2001, Additional history exists HPV Vaccines Completed 07/18/2014, 07/04, 07/25/2012 Hepatitis A Vaccines Completed 10/17/2015, 07/18/20 14 Meningococcal Vaccine Completed 08/18/2017, 012 HIV Screening Completed 01/27/2022 Hepatitis C Screening Completed 01/27/2022 Meningococcal B Vaccine Aged Out No l onger eligible based on patient's age to complete this topic RSV under 20 months Aged Out No longe r eligible based on patient's age to complete this topic Rotavirus Vaccines Aged Out No longer eligible based on patient's age to complete this topic Procedures Procedure Name Priority Date/Time Associated Diagnosis Comments ZZZ HISTORICAL HEPATITIS C AB W/REFL TO HCV RNA, QN, PCR Routine 01/27/2022 2:42 PM EDT HIV 1/2 ANTIGEN/ANTIBODY, FOURTH GENERATION W/RFL Routine 01/27/2022 2:42 PM EDT from Last 3 Months or Most Recently Relevant to Health Maintenance Results * HEPATITIS C AB W/REFL TO HCV RNA, QN, PCR (01/27/2022 2:42 PM EDT) HEPATITIS C ANTIBODY NON-REACT TEE NON-REACT TEE [facility] INDEX 0.01 <1.00 [facility] Comment: HCV antibody was non-reactive. There is no laboratory evidence of HCV infection. In most cases, no further action is required. However, if recent HCV exposure is suspected, a test for HCV RNA (test code 64302) is suggested. For additional information please refer to http://Rapidlea.Shwrüm/faq/ZPP14k6 (This link is being provided for informational/ educational purposes only.) 01/27/2022 2:42 PM EDT us Myrtle Holland NP HISTORICAL/NON ORDERABLE LABS F inal Result [facility] [address] * HIV 1/2 ANTIGEN/ANTIBODY,FOURTH GENERATION W/RFL (01/27/2022 2:42 PM EDT) HIV-1/2 ANTIGEN AND ANTIBODIES, 4TH GENERATION W/ REFLEX NON-REACT TEE NON-REACT TEE [facility] Comment: HIV-1 antigen and HIV-1/HIV-2 antibodies were not detected. There is no laboratory evidence of HIV infection. PLEASE NOTE: This information has been disclosed to you from records whose confidentiality may be protected by state law. If your state requires such protection, then the state law prohibits you from making any further disclosure of the information without the specific written consent of the person to whom it pertains, or as otherwise permitted by law. A general authorization for the release of medical or other information is NOT sufficient for this purpose. For additional information please refer to http://Rapidlea.Shwrüm/faq/WEU360 (This link is being provided for informational/ educational purposes only.) The performance of this assay has not been clinically validated in patients less than 2 years old. 01/27/2022 2:42 PM EDT us Myrtle Holland HARNESS INSTALLER LAB BLOOD ORDERABLES Final Resu lt [facility] [address] [place] [address], from Last 3 Months or Most Recently Relevant to Health Maintenance Insurance [employer] C[employer] Care Teams Glazier Artist Relationship Specialty Start Date End Date Natividad Allen MD [address] [place] [address] PCP - General Family Medicine 05/28/22
--- OUTSIDE RECORDS SUMMARY | 2025-07-28 03:58 | XMS_ITS | Encounter Summary ---
Author Organization [facility] Address [address] [place] [address] Phone Care Team Providers Care Road Conductor Name Role Phone Provider, Fracisco MALIK Primary Care Provider [phone] Encounter Details Date Type Department Care Team (Late st Contact Info) Description 01/04/2014 [place] [facility] [place] [address] [place] [address] Family Medicine, Physician [address] [place] [phone] Social History Tobacco Use Types Packs/Day Years [...] on filedocumented in this encounter Care Teams Road Conductor Relationship Specialty Start Date End Date Provider, MD Fracisco [address] [place] [phone] PCP - General Pediatrics 07/02/21 11/05/21 documented as of this encounter
--- OUTSIDE RECORDS SUMMARY | 2025-07-28 03:58 | XMS_ITS | Clinical Summary ---
Author Organization [facility] Address [address] [place] [phone] Phone Care Team Providers Care Electronic Scale Tester Name Role Phone Unavailable Primary Care Provider [...] of ADD/ADHD, No family history of *Sudden /[place] under 55 Paternal Grandfather Alive Paterna l [...] 93 12/13/2019 11:10 AM EDT Temperature 37.3 C (99.1 F) 12/13/2019 11:10 AM EDT Respiratory Rate - - Oxygen Saturation - - Inhaled Oxygen Concentration - - Weight 83.1 kg (183 lb 3.2 oz) 12/13/2019 11:10 AM EDT Height 156.2 cm (5' 1.5 ) 09/25/2019 1:42 PM EST Body Mass Index 34.05 09/25/2019 1:42 PM EST Plan of Treatment Health Maintenance Due Date Last Done Comments Influenza Vaccines (#1) 2025 09/25/20 19, 08/18/2017, 08/03/2016, Additional history exists COVID-19 Vaccine ( season) 2025 10/06/2021, 03/29/2021, 03/08/2021 DTaP,Tdap,and Td Vaccines (8 [...] 07/18/20 14 Meningococcal Vaccine Completed 08/18/2017, 012 Men B Vaccine Aged Out No longer elig ible based on patient's age to complete this topic Procedures * Due to [place] Qoiza law, this organization might not be sharing sensitive test results. Procedure Name Priority Date/Time Associated Diagnosis Comments CHLAMYDIA AND GONORRHEA, AMPLIFIED Routine 12/13/2019 11:24 AM EDT Screening examination for bacterial and spirochetal disease from Last 3 Months or Most Recently Relevant to Health Maintenance Results * Due to [place] Q[place] law, this organization might not be sharing sensitive test results. * Chlamydia and Gonorrhoea, Amplified (12/13/2019 11:24 AM EDT) Chlamydia Trachomatis, DNA Probe NEGATIVE (NEG) [facility] Comment: No Chlamydia Trachomatis RNA detected in this patient's sample (REFERENCE RANGE/NORMAL VALUE: NOT DETECTED) Note: This test uses regional facilities specialist- mediated amplification method to detect rRNA from C. Trachomatis URINE GC AMP PROBE NEGATIVE (NEG) [facility] Comment: No Neisseria Gonorrhoeae RNA detected in this patient's sample (REFERENCE RANGE/NORMAL VALUE: NOT DETECTED) NOTE: This test uses regional facilities specialist-mediated amplification method to detect rRNA from N.Gonorrhoeae. [...] without risk of sexual abuse. Consult the [facility] if needed. Contact phone number . Therapeutic failure or success cannot be determined with the Aptima Combo2 assay since nucleic acid may persist following appropriate antimicrobial therapy. The Centers for Disease Control and Prevention (CDC) recommends confirmatory retesting using culture or a different nucleic acid amplification test when positive results occur, if indicated. Testing performed or reported by [facility], a Service of [facility], [address] [place] [address] Orlando Brown MD, Brick Paving Checker Urine 12/13/2019 11:2 4 AM EDT 12/13/2019 7:20 PM EDT Irina Alcantara NP LAB MICROBIOLOGY - GENERAL OR DERABLES Final Result [facility] from Last 3 Months or Most Recently Relevant to Health Maintenance Insurance [facility] NON PCC
--- OUTSIDE RECORDS SUMMARY | 2025-07-28 03:58 | XMS_ITS | Encounter Summary ---
Author Organization [facility] Address [address] [place] [phone] Phone Care Team Providers Care Industrial Hygiene Technician Name Role Phone Provider, Fracisco MALIK Primary Care Provider [phone] Encounter Details Date Type Department Care Team (Late st Contact Info) Description 11/16/2012 Documentation [facility] [place] [address] [place] [address] Family Medicine, Physician [address] [place] [phone] Social History Tobacco Use Types Packs/Day Years [...] on filedocumented in this encounter Care Teams Industrial Hygiene Technician Relationship Specialty Start Date End Date Provider, MD Fracisco [address] [place] [phone] PCP - General Pediatrics 07/02/21 11/05/21 documented as of this encounter
--- OUTSIDE RECORDS SUMMARY | 2025-07-28 03:58 | XMS_ITS | Encounter Summary ---
Author Organization [facility] Address [address] [place] [phone] Phone Care Team Providers Care Repairer Hairspring Name Role Phone Provider, Fracisco MALIK Primary Care Provider [phone] Encounter Details Date Type Department Care Team (Late st Contact Info) Description 11/15/2014 Documentation [facility] [place] [address] [place] [address] Family Medicine, Physician [address], [place] [phone] Social History Tobacco Use Types Packs/Day Years [...] on filedocumented in this encounter Care Teams Repairer Hairspring Relationship Specialty Start Date End Date Provider, MD Fracisco [address] [place] [phone] PCP - General Pediatrics 07/02/21 11/05/21 documented as of this encounter
--- OUTSIDE RECORDS SUMMARY | 2025-07-28 03:58 | XMS_ITS | Encounter Summary ---
Author Organization [facility] Address [address] [place] [address] Phone Care Team Providers Care Poultry Hanger Name Role Phone Provider, Fracisco MALIK Primary Care Provider [phone] Encounter Details Date Type Department Care Team (Late st Contact Info) Description 06/12/2016 Documentation [facility] [place] Medicine [address] [place] [address] Family Medicine, Physician [address] [place] [phone] Social History Tobacco Use Types Packs/Day Years [...] on filedocumented in this encounter Care Teams Poultry Hanger Relationship Specialty Start Date End Date Provider, MD Fracisco [address] [place] [phone] PCP - General Pediatrics 07/02/21 11/05/21 documented as of this encounter
--- OUTSIDE RECORDS SUMMARY | 2025-07-28 03:58 | XMS_ITS | Encounter Summary ---
Author Organization [facility] Address [address] [place] [address] Phone Care Team Providers Care Matcher Leather Parts Name Role Phone Provider, Fracisco MALIK Primary Care Provider [phone] Encounter Details Date Type Department Care Team (Late st Contact Info) Description 02/25/2012 Documentation [facility] [place] [address] [place] [address] Family Medicine, Physician [address] [phone] Social History Tobacco Use Types Packs/Day Years [...] on filedocumented in this encounter Care Teams Matcher Leather Parts Relationship Specialty Start Date End Date Provider, MD Fracisco [address] [place] [phone] PCP - General Pediatrics 07/02/21 11/05/21 documented as of this encounter
--- OUTSIDE RECORDS SUMMARY | 2025-07-28 03:58 | XMS_ITS | Encounter Summary ---
Author Organization [facility] Address [address] [place] [address] Phone Care Team Providers Care Photo Finish Photographer Name Role Phone Provider, Fracisco MALIK Primary Care Provider [phone] Encounter Details Date Type Department Care Team (Late st Contact Info) Description 07/12/[address] [facility] [place] [address] [place] [address] Family Medicine, Physician [address] [place] [phone] Social History Tobacco Use Types Packs/Day Years [...] on filedocumented in this encounter Care Teams Photo Finish Photographer Relationship Specialty Start Date End Date Provider, MD Fracisco [address] [place] [phone] PCP - General Pediatrics 07/02/21 11/05/21 documented as of this encounter
--- NOTE | 2025-07-28 04:04 | PC.NURSE ---
Addendum entered by Akira Loya RN 07/28/25 04:06: pt able to maintain her own airway, placed on cardiac monitoring, changed into hospital gown, IV line placed and medicated per DEC. No apparent distress noted, parents at the bedside Original Note: this RN assumed care of this pt @ approximately 0330, pt brought in from triage d/t allergic reaction, rash noted around nose, cheeks and neck, pt stated the rash also radiated to neck, chest and upper arms. Pt air
--- NOTE | 2025-07-28 05:05 | PC.NURSE ---
at this time this RN rounding on pt to assess status of IVF, pt was noted to be resting w/ eyes closed on her right side, pt arouse when RN entered room and stated The itchiness is not going away it is getting worse. VSS, pt mother then pointed to back of pt neck, rash noted to the neck and along spinal column area of back, mother stated that it is worse than pt arrival to ED. Provider Bryce Mendoza made aware
--- NOTE | 2025-07-28 06:08 | PC.NURSE ---
@9140 this RN was medicating pt per MAR, pt noted to have right arm bent, pt educated and instructed that she must keep arm straight in order to have all of the IVF infused, approximately 300 mL remaining in NS bag
--- NOTE | 2025-07-28 06:20 | PC.NURSE ---
at this time IVF finished infusing. Upon rounding it was noted that the pt rash to the face had dissipated as well as along the pt arms. Pt also stated I am feeling a lot better Provider Barrington Hinojosa made aware of pt response to medications
--- NOTE | 2025-07-28 07:30 | PC.NURSE ---
Assumed care of pt at 0700. Pt resting in bed quietly, respirations even and unlabored, no increased wob/sob noted, maintaining O2 sat >92% on RA, airway patent- no difficulty breathing noted, speaking in full sentences. Vitals updated in worklist, BP noted to be soft 90s/50s- MD Aware. Pt offers no complaints at this time. Call herrera within reach, all needs met at this time.
== END 2025-07-28 09:22 | disposition home or self-care (01) ==
PROVIDERS: Emergency Provider Emergency Medicine Emergency Medical Services
DX: T78.49XA Other allergy, initial encounter (principal); R21 Rash and other nonspecific skin eruption; X58.XXXA Exposure to other specified factors, initial encounter; Y99.9 Unspecified external cause status; Y92.9 Unspecified place or not applicable
CPT/HCPCS: 96361; 96372; 96374; 96375; 99284; J0165; J1200; J2919